=== PATIENT | female | born 1950 | race Caucasian/White ===

== ENCOUNTER 2023-04-07 20:47 | Inpatient (IN) | payer MEDICARE ==
[2023-04-07] MEDS ORDERED: SODIUM CHLORIDE 0.9% 1,000 ML IV STA (21:27)
[2023-04-07] MEDS ORDERED: IBUPROFEN IV 800 MG in SODIUM CHLORIDE 0.9% 250 ML IV ONE (21:27)
[2023-04-07] MEDS ORDERED: SODIUM CHLORIDE 0.9% 500 ML 500 ML IV STA (21:27)
[2023-04-07] MEDS ORDERED: ACETAMINOPHEN IV (For NPO) 1,000 MG in EMPTY BAG 1 BAG IVPB STA (21:27)
[2023-04-07 22:31] LABS: ALT 37 U/L (4-34); AST 37 U/L (14-36); African American GFR (CKD) >90 (>60 ml/min/1.73 sqM); Albumin 2.6 g/dL (3.5-5.0); Alkaline Phosphatase 500 U/L (38-126); Anion Gap 7 mmol/L; Blood Urea Nitrogen 14 mg/dL (7-17); Calcium 7.7 mg/dL (8.4-10.2); Carbon Dioxide 23 mmol/L (22-30); Chloride 100 mmol/L (98-107); Glucose 155 mg/dL (74-99); Magnesium 1.7 mg/dL (1.6-2.3); Non-African American GFR(CKD) >90 (>60 ml/min/1.73 sqM); Phosphorus 2.4 mg/dL (2.5-4.5); Potassium 3.5 mmol/L (3.5-5.1); Sodium 130 mmol/L (137-145); Total Bilirubin 0.7 mg/dL (0.2-1.3); Total Protein 5.1 g/dL (6.3-8.2)
[2023-04-07 22:49] LABS: C Reactive Protein 16.7 mg/dL (<1.0)
[2023-04-07 22:54] LABS: Anisocytosis Slight; Basophils % (A) 0 %; Eosinophils % (A) 1 %; HCT 21.1 % (34.0-46.0); Lymphocytes # (A) 0.2 k/uL (1.0-4.8); Lymphocytes % (A) 6 %; MCH 28.9 pg (25.0-35.0); MCHC 31.5 g/dL (31.0-37.0); MCV 91.7 fL (80.0-100.0); Monocytes # (A) 0.1 k/uL (0-1.0); Monocytes % (A) 2 %; Neutrophils # (A) 2.7 k/uL (1.3-7.7); Neutrophils % (A) 91 %; RDW 18.3 % (11.5-15.5); WBC 2.9 k/uL (3.8-10.6)
[2023-04-07 23:03] LABS: HGB 6.7 gm/dL (11.4-16.0); Platelet Count 82 k/uL (150-450)
--- NOTE | 2023-04-07 23:05 | ED ---
Fever HPI - General Chief Complaint: Fever Stated Complaint: FEVER Source: patient, RN notes reviewed, old records reviewed Mode of arrival: ambulatory Limitations: no limitations - History of Present Illness Initial Comments: This is a 73-year-old female to the emergency department for evaluation today. Patient presents today for evaluation regards to fever, patient has history of pancreatic cancer currently with pancreatic cancer going to chemotherapy. Symptoms lab values have been worsening. Patient also has noticed that she recently developed a fever. Patient has no symptoms along with a fever low just has not been feeling well lightheaded dizzy weak with occasional headache. Patient has no known travel history or sick contacts. No nausea vomiting or diarrhea. No abdominal pain cough or congestion. MD Complaint: fever, malaise, weakness -: days(s) Temperature Source: subjective Context: multiple patients with similar symptoms Associated Symptoms: chills, rigors, myalgias, nausea Treatments Prior to Arrival: none - Related Data Previous Rx's Medication Instructions Recorded cefUROXime axetiL [Cefuroxime] 500 mg PO BID 7 Days #14 tab 04/12/23 Allergies Allergy/AdvReac Type Severity Reaction Status Date / Time No Known Allergies Allergy Verified 04/08/23 07:32 Review of Systems ROS Statement: Those systems with pertinent positive or pertinent negative responses have been documented in the HPI. ROS Other: All systems not noted in ROS Statement are negative. Past Medical History Past Medical History: Cancer History of Any Multi-Drug Resistant Organisms: None Reported Past Surgical History: No Surgical Hx Reported Past Anesthesia/Blood Transfusion Reactions: No Reported Reaction Past Psychological History: No Psychological Hx Reported Smoking Status: Former smoker Past Alcohol Use History: None Reported Past Drug Use History: None Reported General Exam Limitations: no limitations General appearance: alert, in no apparent distress, anxious Head exam: Present: atraumatic, normocephalic, normal inspection Eye exam: Present: normal appearance, PERRL, EOMI. Absent: scleral icterus, conjunctival injection, periorbital swelling ENT exam: Present: normal exam, mucous membranes dry Neck exam: Present: normal inspection. Absent: tenderness, meningismus, lymph adenopathy Respiratory exam: Present: wheezes, rhonchi, decreased breath sounds, prolonged expiratory. Absent: respiratory distress, rales, stridor Cardiovascular Exam: Present: normal rhythm, tachycardia, normal heart sounds. Absent: systolic murmur, diastolic murmur, rubs, gallop, clicks GI/Abdominal exam: Present: soft, normal bowel sounds. Absent: distended, tenderness, guarding, rebound, rigid Extremities exam: Present: normal inspection, full ROM, normal capillary refill. Absent: tenderness, pedal edema, joint swelling, calf tenderness Back exam: Present: normal inspection Neurological exam: Present: alert, oriented X3, CN II-XII intact Psychiatric exam: Present: normal affect, normal mood Skin exam: Present: warm, dry, intact, normal color. Absent: rash Course Vital Signs 04/07/23 04/07/23 04/07/23 20:50 21:13 22:57 Temperature 100 F H 102.8 F H 101.3 F H Pulse Rate 113 H 87 Respiratory 20 16 Rate Blood Pressure 99/55 100/56 O2 Sat by Pulse 96 95 Oximetry 04/07/23 04/08/23 04/08/23 23:29 00:03 01:30 Temperature 99.9 F H 99.9 F H Pulse Rate 85 78 78 Respiratory 18 20 18 Rate Blood Pressure 100/56 91/48 83/81 O2 Sat by Pulse 97 97 98 Oximetry 04/08/23 04/08/23 04/08/23 02:00 02:21 02:41 Temperature 98.5 F 98.5 F Pulse Rate 82 84 73 Respiratory 20 18 18 Rate Blood Pressure 81/52 92/51 84/51 O2 Sat by Pulse 99 96 98 Oximetry 04/08/23 04/08/23 04/08/23 03:01 03:21 03:41 Temperature 98.7 F 98.2 F 98.0 F Pulse Rate 80 78 79 Respiratory 18 17 18 Rate Blood Pressure 94/58 92/50 95/51 O2 Sat by Pulse 97 98 98 Oximetry 04/08/23 04/08/23 04:00 04:30 Temperature 98.0 F 98 F Pulse Rate 80 78 Respiratory 18 18 Rate Blood Pressure 111/58 105/60 O2 Sat by Pulse 97 98 Oximetry - Reevaluation(s) Reevaluation #1: 04/07/23 23:24 Medical record is reviewed Reevaluation #2: 04/07/23 23:24 Patient improvement with fever control Reevaluation #3: 04/07/23 23:47 Patient informed results questions answered Reevaluation #4: 04/07/23 23:13 Was pt. sent in by a medical professional or institution ([facility], [employer], urgent care, hospital, or prison...) When possible be specific @ -no Did you speak to anyone other than the patient for history (EMS, parent, family, police, friend...)? What history was obtained from this source @ -no Did you review nursing and triage notes (agree or disagree)? Why? @ -agree Are old charts reviewed (outside hosp., previous admission, EMS record, old EKG, old radiological studies, urgent care reports/EKG's, prison records)? Report findings @ -yes Differential Diagnosis (chest pain, altered mental status, abdominal pain women, abdominal pain men, vaginal bleeding, weakness, fever, dyspnea, syncope, headache, dizziness, GI bleed, back pain, seizure, CVA, palpatations, mental health, musculoskeletal)? @ -prior EKG interpreted by me (3pts min.). @ -yes X-rays interpreted by me (1pt min.). @ -no CT interpreted by me (1pt min.). @ -no U/S interpreted by me (1pt. min.). @ -no What testing was considered but not performed or refused? (CT, X-rays, U/S, labs)? Why? @ -none What meds were considered but not given or refused? Why? @ -none Did you discuss the management of the patient with other professionals (professionals i.e. [facility], [employer], lab, RT, psych nurse, social service agency director, sociology instructor, teacher, police officer booking, ed case manager)? Give summary @ -no Was smoking cessation discussed for >3mins.? @ -no Was critical care preformed (if so, how long)? @ -no Were there social determinants of health that impacted care today? How? (Homelessness, low income, unemployed, alcoholism, drug addiction, transportation, low edu. Level, literacy, decrease access to med. care, group home, rehab)? @ -none Was there de-escalation of care discussed even if they declined (Discuss DNR or withdrawal of care, Hospice)? DNR status @ -no What co-morbidities impacted this encounter? (DM, HTN, Smoking, COPD, CAD, Cancer, CVA, ARF, Chemo, Hep., AIDS, mental health diagnosis, sleep apnea, morbid obesity)? @ -none Was patient admitted / discharged? Hospital course, mention meds given and route, prescriptions, significant lab abnormalities, going to OR and other pertinent info. @ - 73-year-old with significant shortness of breath weakness oncological treatment chemotherapy for pancreatic cancer. Patient will be transfused for anemia place on IV antibiotics for significant pneumonia having blood cultures. Patient does have findings of abnormal left great toe on x-ray could be possible concern for infection as there was some drainage from that toe today Admitted Undiagnosed new problem with uncertain prognosis? @ -no Drug Therapy requiring intensive monitoring for toxicity (Heparin, Nitro, Insulin, Cardizem)? @ -no Were any procedures done? @ -no Diagnosis/symptom? @ -Pneumonia, weakness, underlying cancer Acute, or Chronic, or Acute on Chronic? @ -Acute Uncomplicated (without systemic symptoms) or Complicated (systemic symptoms)? @ -Complicated Side effects of treatment? @ -no Exacerbation, Progression, or Severe Exacerbation? @ -exacerbation Poses a threat to life or bodily function? How? (Chest pain, USA, AR, pneumonia, PE, COPD, DKA, ARF, appy, cholecystitis, CVA, Diverticulitis, Homicidal, Suicidal, threat to staff... and all critical care pts) @ -yes with pneumonia subsisting underlying cancer Reevaluation #5: 04/07/23 23:47 Differential Fever: Pneumonia, viral URI, endocarditis, myocarditis, pericarditis, otitis, sinusitis, peritonsillar Abscess, retropharyngeal Abscess, epiglottitis, peritonitis, appendicitis, Grisel cystitis, diverticulitis, hepatitis, colitis, UTI, PID, TOA, pyelonephritis, prostatitis, epididymitis, meningitis, encephalitis, pulmonary embolism, CVA, thyroid storm, pancreatitis, adrenal crisis, cavernous sinus thrombosis, this is not meant to be an all-inclusive list. Differential Weakness: Hypoglycemia, shock, sepsis, hyponatremia, anemia, infection, AR, ETOH, adverse medicine reaction, overdose, stroke, this is not meant to be an all-inclusive list. - Consultations Consultation #1: Spoke with DOUG to agrees to admit this patient Medical Decision Making - Medical Decision Making 73-year-old with significant shortness of breath weakness oncological treatment chemotherapy for pancreatic cancer. Patient will be transfused for anemia place on IV antibiotics for significant pneumonia having blood cultures. Patient does have findings of abnormal left great toe on x-ray could be possible concern for infection as there was some drainage from that toe today - Lab Data Result diagrams: 04/11/23 05:59 04/11/23 05:59 Lab Results 04/07/23 04/07/23 04/07/23 Range/Units 21:31 21:31 21:31 WBC 2.9 L (3.8-10.6) k/uL RBC 2.30 L (3.80-5.40) m/uL Hgb 6.7 L* D (11.4-16.0) gm/dL Hct 21.1 L (34.0-46.0) % MCV 91.7 (80.0-100.0) fL MCH 28.9 (25.0-35.0) pg MCHC 31.5 (31.0-37.0) g/dL RDW 18.3 H (11.5-15.5) % Plt Count 82 L D (150-450) k/uL MPV 9.0 Neutrophils % 91 % Lymphocytes % 6 % Monocytes % 2 % Eosinophils % 1 % Basophils % 0 % Neutrophils # 2.7 (1.3-7.7) k/uL Lymphocytes # 0.2 L (1.0-4.8) k/uL Monocytes # 0.1 (0-1.0) k/uL Eosinophils # 0.0 (0-0.7) k/uL Basophils # 0.0 (0-0.2) k/uL Anisocytosis Slight Sodium 130 L (137-145) mmol/L Potassium 3.5 (3.5-5.1) mmol/L Chloride 100 (98-107) mmol/L Carbon Dioxide 23 (22-30) mmol/L Anion Gap 7 mmol/L BUN 14 (7-17) mg/dL Creatinine 0.58 (0.52-1.04) mg/dL Est GFR (CKD-EPI)AfAm >90 (>60 ml/min/1.73 sqM) Est GFR (CKD-EPI)NonAf >90 (>60 ml/min/1.73 sqM) Glucose 155 H (74-99) mg/dL Lactic Ac Sepsis Rflx Plasma Lactic Acid Danilo 2.7 H* (0.7-2.0) mmol/L Calcium 7.7 L (8.4-10.2) mg/dL Phosphorus 2.4 L (2.5-4.5) mg/dL Magnesium 1.7 (1.6-2.3) mg/dL Total Bilirubin 0.7 (0.2-1.3) mg/dL AST 37 H (14-36) U/L ALT 37 H (4-34) U/L Alkaline Phosphatase 500 H (38-126) U/L C-Reactive Protein 16.7 H (<1.0) mg/dL Total Protein 5.1 L (6.3-8.2) g/dL Albumin 2.6 L (3.5-5.0) g/dL Lipase (23-300) U/L Influenza Type A (PCR) (Not Detectd) Influenza Type B (PCR) (Not Detectd) RSV (PCR) (Not Detectd) SARS-CoV-2 (PCR) (Not Detectd) 04/07/23 04/07/23 04/07/23 Range/Units 21:31 21:31 22:35 WBC (3.8-10.6) k/uL RBC (3.80-5.40) m/uL Hgb (11.4-16.0) gm/dL Hct (34.0-46.0) % MCV (80.0-100.0) fL MCH (25.0-35.0) pg MCHC (31.0-37.0) g/dL RDW (11.5-15.5) % Plt Count (150-450) k/uL MPV Neutrophils % % Lymphocytes % % Monocytes % % Eosinophils % % Basophils % % Neutrophils # (1.3-7.7) k/uL Lymphocytes # (1.0-4.8) k/uL Monocytes # (0-1.0) k/uL Eosinophils # (0-0.7) k/uL Basophils # (0-0.2) k/uL Anisocytosis Sodium (137-145) mmol/L Potassium (3.5-5.1) mmol/L Chloride (98-107) mmol/L Carbon Dioxide (22-30) mmol/L Anion Gap mmol/L BUN (7-17) mg/dL Creatinine (0.52-1.04) mg/dL Est GFR (CKD-EPI)AfAm (>60 ml/min/1.73 sqM) Est GFR (CKD-EPI)NonAf (>60 ml/min/1.73 sqM) Glucose (74-99) mg/dL Lactic Ac Sepsis Rflx Y Plasma Lactic Acid Danilo (0.7-2.0) mmol/L Calcium (8.4-10.2) mg/dL Phosphorus (2.5-4.5) mg/dL Magnesium (1.6-2.3) mg/dL Total Bilirubin (0.2-1.3) mg/dL AST (14-36) U/L ALT (4-34) U/L Alkaline Phosphatase (38-126) U/L C-Reactive Protein (<1.0) mg/dL Total Protein (6.3-8.2) g/dL Albumin (3.5-5.0) g/dL Lipase 171 (23-300) U/L Influenza Type A (PCR) Not Detected (Not Detectd) Influenza Type B (PCR) Not Detected (Not Detectd) RSV (PCR) Not Detected (Not Detectd) SARS-CoV-2 (PCR) Not Detected (Not Detectd) - Radiology Data Radiology results: report reviewed (Chest x-rays positive for pneumonia, x-ray left foot is positive for findings left great toe), image reviewed Critical Care Time Critical Care Time: Yes Total Critical Care Time: 31 Disposition Clinical Impression: Weakness, Community acquired pneumonia, Fever, Anemia, Pancreatic cancer, Bacteremia, Pancytopenia due to chemotherapy Disposition: ADMITTED IP TO THIS HOSP Condition: Fair Is patient prescribed a controlled substance at d/c from ED?: No Time of Disposition: 21:40
[2023-04-07] MEDS ORDERED: POTASSIUM BICARBONATE/CIT AC 20 MEQ TABLET.EFF PO ONE (23:06)
--- NOTE | 2023-04-07 23:10 | XR ---
EXAMINATION TYPE: XR chest 2V, XR foot complete 3 views LT DATE OF EXAM: 04/07/2023 COMPARISON: None HISTORY: 73-year-old female with fever and great toe pain FINDINGS: Chest: The cardiomediastinal silhouette, aorta, and pulmonary vasculature are within normal limits. There is patchy posterior basilar opacity on the lateral view. Prominent skinfold projects along the peripher y of the left mid to lower lung. Chronic healed fracture deformity mid right clavicular shaft. Left foot: Incidental Kraus's toe. There is slight flattening of the subarticular bone plate of the second meta tarsal head. Os intermetatarsal the lateral view. Small posterior and plantar heel spurs. No acute fr acture, subluxation, dislocation seen. IMPRESSION: 1. Chest: Patchy posterior basilar opacity on the lateral view. This could represent atelectasis or d eveloping infiltrate. 2. Left foot: Kraus's toe. Correlate for Freiberg's infraction second metatarsal head. Small posteri or and plantar heel spurs.
[2023-04-07] MEDS: MAGNESIUM SULFATE-D5W PMX 1 GM in DEXTROSE/WATER 1 100ML.BAG IVPB SCH (23:25)
[2023-04-07] MEDS ORDERED: PNEUMONIA PROTOCOL UTILIZED 1 EACH MISC PO PRN (23:40)
[2023-04-07] MEDS ORDERED: NALOXONE 0.4 MG/ML 1 ML VIAL IV PRN (23:40)
[2023-04-07] MEDS ORDERED: AZITHROMYCIN 500 MG in SODIUM CHLORIDE 0.9% 250 ML IVPB STA (23:40)
[2023-04-07] MEDS ORDERED: ONDANSETRON 4 MG/2 ML VIAL IVP PRN (23:40)
[2023-04-07] MEDS ORDERED: MORPHINE SULFATE 4 MG/ML SYRINGE IV PRN (23:40)
[2023-04-08] MEDS: SODIUM CHLORIDE 0.9% 1,000 ML IV SCH ×2 (00:18→17:19)
[2023-04-08] MEDS: MAGNESIUM SULFATE-D5W PMX 1 GM in DEXTROSE/WATER 1 100ML.BAG IVPB SCH (00:31)
[2023-04-08 05:50] LABS: Glucose,Whole Blood 119 mg/dL (70-110)
[2023-04-08 07:31] LABS: Anisocytosis Slight; Basophils % (A) 0 %; Eosinophils % (A) 1 %; HCT 24.7 % (34.0-46.0); HGB 7.9 gm/dL (11.4-16.0); Hypochromasia Slight; Lymphocytes # (A) 0.3 k/uL (1.0-4.8); Lymphocytes % (A) 15 %; MCH 29.3 pg (25.0-35.0); MCHC 32.1 g/dL (31.0-37.0); MCV 91.4 fL (80.0-100.0); Mean Platelet Volume 8.9; Monocytes % (A) 1 %; Neutrophils # (A) 1.6 k/uL (1.3-7.7); Neutrophils % (A) 82 %; RDW 18.6 % (11.5-15.5)
[2023-04-08 07:44] LABS: ALT 36 U/L (4-34); AST 28 U/L (14-36); African American GFR (CKD) >90 (>60 ml/min/1.73 sqM); Albumin 2.4 g/dL (3.5-5.0); Alkaline Phosphatase 411 U/L (38-126); Anion Gap 2 mmol/L; Blood Urea Nitrogen 8 mg/dL (7-17); Calcium 7.3 mg/dL (8.4-10.2); Carbon Dioxide 26 mmol/L (22-30); Chloride 104 mmol/L (98-107); Glucose 130 mg/dL (74-99); Lipase 62 U/L (23-300); Magnesium 2.4 mg/dL (1.6-2.3); Non-African American GFR(CKD) >90 (>60 ml/min/1.73 sqM); Phosphorus 2.8 mg/dL (2.5-4.5); Potassium 4.7 mmol/L (3.5-5.1); Sodium 132 mmol/L (137-145); Total Bilirubin 0.9 mg/dL (0.2-1.3); Total Protein 4.7 g/dL (6.3-8.2)
[2023-04-08 08:30] LABS: Platelet Count 83 k/uL (150-450)
[2023-04-08 12:57] LABS: Appearance,Urine Clear (Clear); Bilirubin,Urine Negative (Negative); Blood,Urine Negative (Negative); Color,Urine Light Yellow; Glucose,Urine (UA) Negative (Negative); Ketones,Urine Negative (Negative); Leukocyte Esterase,Urine Negative (Negative); Nitrite,Urine Negative (Negative); Protein,Urine Negative (Negative); Urobilinogen,Urine <2.0 mg/dL (<2.0)
[2023-04-08] MEDS: AZITHROMYCIN 500 MG TAB PO SCH (13:04)
--- NOTE | 2023-04-08 13:07 | P.CONS ---
History of Present Illness - Reason for Consult Consult date: 04/08/23 pancreatic adenocarcinoma Requesting physician: Anthony Evans - Chief Complaint fever, rigors - History of Present Illness Pt of Dr. Baker, with PMH of pancreatic adenocarcinoma diagnosed earlier this year, due to complete cycle 6 day 15 of neoadjuvant chemo this Saturday. She has done well with regimen overall up to this point. She presented early September 2022 to [facility] with jaundice, progressive over a week, associated with dark urine, lightening of the stools, mild early satiety, vague abdominal discomfort. 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. Bilirubin 14.7, alk phos 724, liver enzymes were elevated, CTAP showed a 4 cm mass in the pancreatic head/uncinate process, mildly enlarged right cardiophrenic lymph node 1.1 cm. EUS with ERCP attempted 09/18/22, unsuccessful. Repeat 09/24/22 successful placement of an uncovered metal stent, biopsies of pancreas and bile duct positive for adenocarcinoma consistent with pancreatic primary. Imaging discussed at [facility]. Tumor felt to have focal abutment to the posterior SMV, multiple large liver lesions. 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 MRI of the liver 11/03/22 confirmed the same. Recommendation for systemic neoadjuvant chemotherapy, reevaluation and possible excision. Patient denies any family history of pancreatic/ovarian/breast or prostate cancer in first-degree relatives. No personal history of cancer. She started Gemzar and Abraxane 11/02/22 days 1 and 151 cycle, increased to day 1, 8, 15 with cycle 2, G-CSF added. She was last seen by Dr. Baker about 2 weeks ago, plan was to complete 6 cycles. Pt already has follow-up with Surgical Oncology for repeat imaging in May, tentatively scheduled for surgery 05/31/23. A recent CT of the chest was reviewed at her visit with Dr. Baker, there is a referral to Endocrinology for right-sided thyroid nodule. Pt came to ER as she was experiencing rigors at home, she reports they did get better for a while when she took tylenol but, this stopped working. For about 2 weeks her lt great toe has been red, nail is lifting, son reports small amount of pus draining from it. 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 Pt denied checking for fever at home, no oral irritation, sore throat, chest pain, new or worsening cough, N,V, diarrhea On admit XRAY of the foot/toe did not show any concerning findings for osteomyelitis or overwhelming infection, CXR LLL posterior opacity seen. Empiric abx started. Hgb 6.7, s/p 1 unit blood, Hgb 7.9 now. WBC/ANC low but adequate, plt 80,000 range. Lactic acid 2.7 on admit. Tmax overnight 102.8F. Patient was sleeping when we entered the room for examination. She had no acute complaints. Review of Systems 10 point ROS is neg except as stated in HPI Past Medical History Past Medical History: Cancer History of Any Multi-Drug Resistant Organisms: None Reported Past Surgical History: No Surgical Hx Reported Past Anesthesia/Blood Transfusion Reactions: No Reported Reaction Past Psychological History: No Psychological Hx Reported Smoking Status: Former smoker Past Alcohol Use History: None Reported Past Drug Use History: None Reported Medications and Allergies Home Medications Medication Instructions Recorded Confirmed Type No Known Home Medications 04/08/23 04/08/23 History Allergies Allergy/AdvReac Type Severity Reaction Status Date / Time No Known Allergies Allergy Verified 04/08/23 07:32 Physical Exam Vitals: Vital Signs Temp Pulse Pulse Resp BP BP Pulse Ox 04/08/23 08:00 99.6 F 76 18 99/60 95 04/08/23 05:45 99.0 F 82 18 110/68 99 04/08/23 04:30 98 F 78 18 105/60 98 04/08/23 04:00 98.0 F 80 18 111/58 97 04/08/23 03:41 98.0 F 79 18 95/51 98 04/08/23 03:21 98.2 F 78 17 92/50 98 04/08/23 03:01 98.7 F 80 18 94/58 97 04/08/23 02:41 98.5 F 73 18 84/51 98 04/08/23 02:21 98.5 F 84 18 92/51 96 04/08/23 02:00 82 20 81/52 99 04/08/23 01:30 78 18 83/81 98 04/08/23 00:03 99.9 F H 78 20 91/48 97 04/07/23 23:29 99.9 F H 85 18 100/56 97 04/07/23 22:57 101.3 F H 87 16 100/56 95 04/07/23 21:13 102.8 F H 04/07/23 20:50 100 F H 113 H 20 99/55 96 Intake and Output 04/07/23 04/08/23 04/08/23 22:59 06:59 14:59 Intake Total 310 Balance 310 Intake: Blood Product 310 Rc As-1 Unit 310 [id number] Other: # Voids 1 Weight 69.4 kg 69.4 kg - Constitutional General appearance: average body habitus, cooperative, no acute distress - EENT Eyes: anicteric sclerae, EOMI ENT: hearing grossly normal, normal oropharynx - Neck Neck: no lymphadenopathy - Respiratory Respiratory: right: CTA, left: wheezing (LLL exp ) - Cardiovascular Rhythm: regular Heart sounds: normal: S1, S2 Abnormal Heart Sounds: no systolic murmur, no diastolic murmur, no rub, no S3 Gallop, no S4 Gallop, no click, no other foot Peripheral Edema: bilateral: Trace - Gastrointestinal General gastrointestinal: no absent bowel sounds, no decreased bowel sounds, no distended, no hepatomegaly, no hyperactive bowel sounds, normal bowel sounds, no organomegaly, no rigid, no scaphoid, soft, no splenomegaly, no tenderness, no umbilical hernia, no ventral hernia - Integumentary lt great toe nail lifting, mild redness, not tender to touch, no drainage Integumentary: normal - Neurologic Neurologic: CNII-XII intact - Musculoskeletal Musculoskeletal: strength equal bilaterally - Psychiatric Psychiatric: A&O x's 3, appropriate affect, intact judgment & insight Results CBC & Chem 7: 04/08/23 06:38 04/08/23 06:38 Labs: Abnormal Lab Results - Last 24 Hours (Table) 04/07/23 04/07/23 04/07/23 Range/Units 21:31 21:31 21:31 WBC 2.9 L (3.8-10.6) k/uL RBC 2.30 L (3.80-5.40) m/uL Hgb 6.7 L* D (11.4-16.0) gm/dL Hct 21.1 L (34.0-46.0) % RDW 18.3 H (11.5-15.5) % Plt Count 82 L D (150-450) k/uL Lymphocytes # 0.2 L (1.0-4.8) k/uL Sodium 130 L (137-145) mmol/L Creatinine (0.52-1.04) mg/dL Glucose 155 H (74-99) mg/dL POC Glucose (mg/dL) (70-110) mg/dL Plasma Lactic Acid Danilo 2.7 H* (0.7-2.0) mmol/L Calcium 7.7 L (8.4-10.2) mg/dL Phosphorus 2.4 L (2.5-4.5) mg/dL Magnesium (1.6-2.3) mg/dL AST 37 H (14-36) U/L ALT 37 H (4-34) U/L Alkaline Phosphatase 500 H (38-126) U/L C-Reactive Protein 16.7 H (<1.0) mg/dL Total Protein 5.1 L (6.3-8.2) g/dL Albumin 2.6 L (3.5-5.0) g/dL Crossmatch 04/07/23 04/08/23 04/08/23 Range/Units 23:58 05:46 06:38 WBC 2.0 L (3.8-10.6) k/uL RBC 2.70 L (3.80-5.40) m/uL Hgb 7.9 L (11.4-16.0) gm/dL Hct 24.7 L (34.0-46.0) % RDW 18.6 H (11.5-15.5) % Plt Count 83 L (150-450) k/uL Lymphocytes # 0.3 L (1.0-4.8) k/uL Sodium (137-145) mmol/L Creatinine (0.52-1.04) mg/dL Glucose (74-99) mg/dL POC Glucose (mg/dL) 119 H (70-110) mg/dL Plasma Lactic Acid Danilo (0.7-2.0) mmol/L Calcium (8.4-10.2) mg/dL Phosphorus (2.5-4.5) mg/dL Magnesium (1.6-2.3) mg/dL AST (14-36) U/L ALT (4-34) U/L Alkaline Phosphatase (38-126) U/L C-Reactive Protein (<1.0) mg/dL Total Protein (6.3-8.2) g/dL Albumin (3.5-5.0) g/dL Crossmatch See Detail 04/08/23 Range/Units 06:38 WBC (3.8-10.6) k/uL RBC (3.80-5.40) m/uL Hgb (11.4-16.0) gm/dL Hct (34.0-46.0) % RDW (11.5-15.5) % Plt Count (150-450) k/uL Lymphocytes # (1.0-4.8) k/uL Sodium 132 L (137-145) mmol/L Creatinine 0.43 L (0.52-1.04) mg/dL Glucose 130 H (74-99) mg/dL POC Glucose (mg/dL) (70-110) mg/dL Plasma Lactic Acid Danilo (0.7-2.0) mmol/L Calcium 7.3 L (8.4-10.2) mg/dL Phosphorus (2.5-4.5) mg/dL Magnesium 2.4 H (1.6-2.3) mg/dL AST (14-36) U/L ALT 36 H (4-34) U/L Alkaline Phosphatase 411 H (38-126) U/L C-Reactive Protein (<1.0) mg/dL Total Protein 4.7 L (6.3-8.2) g/dL Albumin 2.4 L (3.5-5.0) g/dL Crossmatch Comments: lt foot XR report reviewed Chest x-ray: report reviewed Assessment and Plan (1) Fever Current Visit: Yes Status: Acute Priority: High Code(s): R50.9 - FEVER, UNSPECIFIED SNOMED Code(s): 983801393 (2) Pancytopenia due to chemotherapy Current Visit: Yes Status: Acute Priority: High Code(s): D61.810 - ANTINEOPLASTIC CHEMOTHERAPY INDUCED PANCYTOPENIA SNOMED Code(s): 2022067 (3) Pancreatic cancer Current Visit: Yes Status: Acute Priority: High Code(s): C25.9 - MALIGNANT NEOPLASM OF PANCREAS, UNSPECIFIED SNOMED Code(s): 605335163 Plan: Fever -Pancultures performed. Suspicious CXR, urine and blood cultures pending -Empiric abx started -Lt great toe monitoring, possible infection source Pancytopenia 2/2 chemo -exacerbated by acute infection -pt is s/p 1 unit PRBCs with appropriate increase in Hgb, Hgb 7.9 today. Transfuse for Hgb <7 or if symptomatic -WBC 2, ANC 1.6, low but adequate. No GCSF at this time -Plt 83,000. No acute intervention Pancreatic adenocarcinoma -Diagnosis and circumstances of treatment as described in HPI -Due to complete 6 cycles of neoadjuvant treatment this Fri. This will be delayed until pt completes abx course -Patient and he has follow-up appointments with Dr. Baker, surgical oncology and a tentative surgery date of 05/31/23. Continue with this course at this time. attests: I have seen and examined pt, performed H&P, developed impression and plan of care. Discussed with dictator. Agree with documentation, dictated as a scribe.
--- NOTE | 2023-04-08 15:00 | P.HPIM ---
History of Present Illness H&P Date: 04/08/23 History of present illness; patient 73-year-old lady with past medical history s ignificant for enteric cancer presented to the ER because of feeling of lightheaded and fevers. Patient is currently undergoing chemotherapy for her cancer. Patient states the last few days she has been noticing that she developing low-grade fevers. Patient also complained of lightheadedness and dizziness. Complaining of headaches as well. No complain of cough. No shortness of breath. Denies any chest pain or palpitations. No complain of nausea, vomiting abdominal pain. Because of these complaints patient presented to ER. Patient also complaining of left toe drainage which is new Initial lab work done in the ER showed WBC 2.9, hemoglobin 6.7, platelet count 82, sodium 1:30, potassium 3.5, BUN 14, creatinine 0.58, lactic acid 2.7, calcium 7.7, AST 37, ALT 37 Influenza A and B- RSV negative, COVID-19 negative Chest x-ray done in the ER showed patchy posterior basal opacity on the lateral view this could represent atelectasis or developing infiltrate Patient admitted to medicine service REVIEW OF SYSTEMS: CONSTITUTIONAL: As mentioned above HEENT: No recent visual problems or hearing problems. Denied any sore throat. CARDIOVASCULAR: No chest pain, orthopnea, PND, no palpitations, no syncope. PULMONARY: As mentioned above GASTROINTESTINAL: No diarrhea, no nausea, no vomiting, no abdominal pain. NEUROLOGICAL: No headaches, no weakness, no numbness. HEMATOLOGICAL: Denies any bleeding or petechiae. GENITOURINARY: Denies any burning micturition, frequency, or urgency. MUSCULOSKELETAL/RHEUMATOLOGICAL: Denies any joint pain, swelling, or any muscle pain. ENDOCRINE: Denies any polyuria or polydipsia. The rest of the 14-point review of systems is negative. PHYSICAL EXAMINATION: GENERAL: The patient is alert and oriented x3, not in any acute distress. Well developed, well nourished. HEENT: Pupils are round and equally reacting to light. EOMI. No scleral icterus. No conjunctival pallor. Normocephalic, atraumatic. No pharyngeal erythema. No thyromegaly. CARDIOVASCULAR: S1 and S2 present. No murmurs, rubs, or gallops. PULMONARY: Chest is clear to auscultation, no wheezing or crackles. ABDOMEN: Soft, nontender, nondistended, normoactive bowel sounds. No palpable organomegaly. MUSCULOSKELETAL: No joint swelling or deformity. EXTREMITIES: No cyanosis, clubbing, or pedal edema. NEUROLOGICAL: Gross neurological examination did not reveal any focal deficits. SKIN: No rashes. Assessment and plan Fever Bacterial pneumonia Anemia Thrombocytopenia Lactic acidosis Monitor vital signs Monitor CBC Monitor CMP Continue telemetry monitoring Follow-up on blood cultures Continue IV Rocephin and azithromycin Continue antiemetics Continue IV fluids ID consulted Hematology oncology consult Labs and medication were reviewed.. Continue same treatment. Continue with symptomatic treatment. Resume home medication. Monitor labs and vitals. DVT and GI prophylaxis. Further recommendations as per clinical course of the patient Dictation was produced using [employer] dictation software. please excuse any grammatical, word or spelling errors. Past Medical History Past Medical History: Cancer History of Any Multi-Drug Resistant Organisms: None Reported Past Surgical History: No Surgical Hx Reported Past Anesthesia/Blood Transfusion Reactions: No Reported Reaction Past Psychological History: No Psychological Hx Reported Smoking Status: Former smoker Past Alcohol Use History: None Reported Past Drug Use History: None Reported Medications and Allergies Home Medications Medication Instructions Recorded Confirmed Type No Known Home Medications 04/08/23 04/08/23 History Allergies Allergy/AdvReac Type Severity Reaction Status Date / Time No Known Allergies Allergy Verified 04/08/23 07:32 Physical Exam Vitals: Vital Signs Temp Pulse Pulse Resp BP BP Pulse Ox 04/08/23 08:00 99.6 F 76 18 99/60 95 04/08/23 05:45 99.0 F 82 18 110/68 99 04/08/23 04:30 98 F 78 18 105/60 98 04/08/23 04:00 98.0 F 80 18 111/58 97 04/08/23 03:41 98.0 F 79 18 95/51 98 04/08/23 03:21 98.2 F 78 17 92/50 98 04/08/23 03:01 98.7 F 80 18 94/58 97 04/08/23 02:41 98.5 F 73 18 84/51 98 04/08/23 02:21 98.5 F 84 18 92/51 96 04/08/23 02:00 82 20 81/52 99 04/08/23 01:30 78 18 83/81 98 04/08/23 00:03 99.9 F H 78 20 91/48 97 04/07/23 23:29 99.9 F H 85 18 100/56 97 04/07/23 22:57 101.3 F H 87 16 100/56 95 04/07/23 21:13 102.8 F H 04/07/23 20:50 100 F H 113 H 20 99/55 96 Intake and Output 04/07/23 04/08/23 04/08/23 22:59 06:59 14:59 Intake Total 310 Balance 310 Intake: Blood Product 310 Rc As-1 Unit 310 [id number] Other: # Voids 1 Weight 69.4 kg 69.4 kg Results CBC & Chem 7: 04/08/23 06:38 04/08/23 06:38 Labs: Abnormal Lab Results - Last 24 Hours (Table) 04/07/23 04/07/23 04/07/23 Range/Units 21:31 21:31 21:31 WBC 2.9 L (3.8-10.6) k/uL RBC 2.30 L (3.80-5.40) m/uL Hgb 6.7 L* D (11.4-16.0) gm/dL Hct 21.1 L (34.0-46.0) % RDW 18.3 H (11.5-15.5) % Plt Count 82 L D (150-450) k/uL Lymphocytes # 0.2 L (1.0-4.8) k/uL Sodium 130 L (137-145) mmol/L Creatinine (0.52-1.04) mg/dL Glucose 155 H (74-99) mg/dL POC Glucose (mg/dL) (70-110) mg/dL Plasma Lactic Acid Danilo 2.7 H* (0.7-2.0) mmol/L Calcium 7.7 L (8.4-10.2) mg/dL Phosphorus 2.4 L (2.5-4.5) mg/dL Magnesium (1.6-2.3) mg/dL AST 37 H (14-36) U/L ALT 37 H (4-34) U/L Alkaline Phosphatase 500 H (38-126) U/L C-Reactive Protein 16.7 H (<1.0) mg/dL Total Protein 5.1 L (6.3-8.2) g/dL Albumin 2.6 L (3.5-5.0) g/dL Crossmatch 04/07/23 04/08/23 04/08/23 Range/Units 23:58 05:46 06:38 WBC 2.0 L (3.8-10.6) k/uL RBC 2.70 L (3.80-5.40) m/uL Hgb 7.9 L (11.4-16.0) gm/dL Hct 24.7 L (34.0-46.0) % RDW 18.6 H (11.5-15.5) % Plt Count 83 L (150-450) k/uL Lymphocytes # 0.3 L (1.0-4.8) k/uL Sodium (137-145) mmol/L Creatinine (0.52-1.04) mg/dL Glucose (74-99) mg/dL POC Glucose (mg/dL) 119 H (70-110) mg/dL Plasma Lactic Acid Danilo (0.7-2.0) mmol/L Calcium (8.4-10.2) mg/dL Phosphorus (2.5-4.5) mg/dL Magnesium (1.6-2.3) mg/dL AST (14-36) U/L ALT (4-34) U/L Alkaline Phosphatase (38-126) U/L C-Reactive Protein (<1.0) mg/dL Total Protein (6.3-8.2) g/dL Albumin (3.5-5.0) g/dL Crossmatch See Detail 04/08/23 Range/Units 06:38 WBC (3.8-10.6) k/uL RBC (3.80-5.40) m/uL Hgb (11.4-16.0) gm/dL Hct (34.0-46.0) % RDW (11.5-15.5) % Plt Count (150-450) k/uL Lymphocytes # (1.0-4.8) k/uL Sodium 132 L (137-145) mmol/L Creatinine 0.43 L (0.52-1.04) mg/dL Glucose 130 H (74-99) mg/dL POC Glucose (mg/dL) (70-110) mg/dL Plasma Lactic Acid Danilo (0.7-2.0) mmol/L Calcium 7.3 L (8.4-10.2) mg/dL Phosphorus (2.5-4.5) mg/dL Magnesium 2.4 H (1.6-2.3) mg/dL AST (14-36) U/L ALT 36 H (4-34) U/L Alkaline Phosphatase 411 H (38-126) U/L C-Reactive Protein (<1.0) mg/dL Total Protein 4.7 L (6.3-8.2) g/dL Albumin 2.4 L (3.5-5.0) g/dL Crossmatch Thrombosis Risk Factor Assmnt - Choose All That Apply Any of the Below Risk Factors Present?: No
--- NOTE | 2023-04-08 18:05 | P.CONS ---
History of Present Illness - Reason for Consult Consult date: 04/08/23 Fever in immunocompromised Requesting physician: Mingo Casillas - Chief Complaint Fever and lightheaded x few days - History of Present Illness Patient is a 73 year old female with a past medical history significant for pancreatic adenocarcinoma currently on neoadjuvant chemo, patient presenting to the hospital for evaluation of feeling lightheaded any fever patient symptom has been going on for a few days before presentation to the hospital patient denies having any headaches or significant URI symptoms. Denies having any chest pain has been complaining of some shortness of breath did have a cough which is motivated density and is being of some whitish to his sputum no hemoptysis and no pleuritic chest pain patient denies having any nausea no vomiting no abdominal pain or any diarrhea, with July the patient has been evaluated on presentation to the hospital today she did have fever of 102.8F, the patient white count of 2.9 which is down to 2000 today patient also have a low hemoglobin of 6.7 however hemoglobin is up to 7.9 today, patient did have normal creatinine 0.58 CRP was mildly elevated urine has been negative influenza RSV and covid testing was negative, patient did have a chest x-ray with patchy posterior basilar opacity on the lateral view concerning for developing infiltrate, patient also have x-ray of the foot as the son was conc erned about some purulent drainage from her left big toe however that did not mention any abnormality to the left big toe on that x-ray Review of Systems Positive point and negatives has been mentioned in the HPI, complete review of systems was performed and all other systems are negative Past Medical History Past Medical History: Cancer History of Any Multi-Drug Resistant Organisms: None Reported Past Surgical History: No Surgical Hx Reported Past Anesthesia/Blood Transfusion Reactions: No Reported Reaction Past Psychological History: No Psychological Hx Reported Smoking Status: Former smoker Past Alcohol Use History: None Reported Past Drug Use History: None Reported Medications and Allergies Home Medications Medication Instructions Recorded Confirmed Type No Known Home Medications 04/08/23 04/08/23 History Allergies Allergy/AdvReac Type Severity Reaction Status Date / Time No Known Allergies Allergy Verified 04/08/23 07:32 Physical Exam Vitals: Vital Signs Temp Pulse Pulse Resp BP BP Pulse Ox 04/08/23 08:00 99.6 F 76 18 99/60 95 04/08/23 05:45 99.0 F 82 18 110/68 99 04/08/23 04:30 98 F 78 18 105/60 98 04/08/23 04:00 98.0 F 80 18 111/58 97 04/08/23 03:41 98.0 F 79 18 95/51 98 04/08/23 03:21 98.2 F 78 17 92/50 98 04/08/23 03:01 98.7 F 80 18 94/58 97 04/08/23 02:41 98.5 F 73 18 84/51 98 04/08/23 02:21 98.5 F 84 18 92/51 96 04/08/23 02:00 82 20 81/52 99 04/08/23 01:30 78 18 83/81 98 04/08/23 00:03 99.9 F H 78 20 91/48 97 04/07/23 23:29 99.9 F H 85 18 100/56 97 04/07/23 22:57 101.3 F H 87 16 100/56 95 04/07/23 21:13 102.8 F H 04/07/23 20:50 100 F H 113 H 20 99/55 96 Intake and Output 04/07/23 04/08/23 04/08/23 22:59 06:59 14:59 Intake Total 310 Balance 310 Intake: Blood Product 310 Rc As-1 Unit 310 [id number] Other: # Voids 1 Weight 69.4 kg 69.4 kg GENERAL DESCRIPTION: Elderly female lying in bed, no distress. No tachypnea or accessory muscle of respiration use. HEENT: Shows Pallor , no scleral icterus. Oral mucous membrane is dry. No pharyngeal erythema or thrush NECK: Trachea central, no thyromegaly. LUNGS: Unlabored breathing. Decreased breath in the bases HEART: S1, S2, regular rate and rhythm. No loud murmur ABDOMEN: Soft, no tenderness , guarding or rigidity, no organomegaly EXTREMITIES: No swelling redness drainage was noticed to the left big toe SKIN: No rash, no masses palpable. NEUROLOGICAL: The patient is awake, alert, oriented x3, mood and affect normal. Results CBC & Chem 7: 04/08/23 06:38 04/08/23 06:38 Labs: Abnormal Lab Results - Last 24 Hours (Table) 04/07/23 04/07/23 04/07/23 Range/Units 21:31 21:31 21:31 WBC 2.9 L (3.8-10.6) k/uL RBC 2.30 L (3.80-5.40) m/uL Hgb 6.7 L* D (11.4-16.0) gm/dL Hct 21.1 L (34.0-46.0) % RDW 18.3 H (11.5-15.5) % Plt Count 82 L D (150-450) k/uL Lymphocytes # 0.2 L (1.0-4.8) k/uL Sodium 130 L (137-145) mmol/L Creatinine (0.52-1.04) mg/dL Glucose 155 H (74-99) mg/dL POC Glucose (mg/dL) (70-110) mg/dL Plasma Lactic Acid Danilo 2.7 H* (0.7-2.0) mmol/L Calcium 7.7 L (8.4-10.2) mg/dL Phosphorus 2.4 L (2.5-4.5) mg/dL Magnesium (1.6-2.3) mg/dL AST 37 H (14-36) U/L ALT 37 H (4-34) U/L Alkaline Phosphatase 500 H (38-126) U/L C-Reactive Protein 16.7 H (<1.0) mg/dL Total Protein 5.1 L (6.3-8.2) g/dL Albumin 2.6 L (3.5-5.0) g/dL Crossmatch 04/07/23 04/08/23 04/08/23 Range/Units 23:58 05:46 06:38 WBC 2.0 L (3.8-10.6) k/uL RBC 2.70 L (3.80-5.40) m/uL Hgb 7.9 L (11.4-16.0) gm/dL Hct 24.7 L (34.0-46.0) % RDW 18.6 H (11.5-15.5) % Plt Count 83 L (150-450) k/uL Lymphocytes # 0.3 L (1.0-4.8) k/uL Sodium (137-145) mmol/L Creatinine (0.52-1.04) mg/dL Glucose (74-99) mg/dL POC Glucose (mg/dL) 119 H (70-110) mg/dL Plasma Lactic Acid Danilo (0.7-2.0) mmol/L Calcium (8.4-10.2) mg/dL Phosphorus (2.5-4.5) mg/dL Magnesium (1.6-2.3) mg/dL AST (14-36) U/L ALT (4-34) U/L Alkaline Phosphatase (38-126) U/L C-Reactive Protein (<1.0) mg/dL Total Protein (6.3-8.2) g/dL Albumin (3.5-5.0) g/dL Crossmatch See Detail 04/08/23 Range/Units 06:38 WBC (3.8-10.6) k/uL RBC (3.80-5.40) m/uL Hgb (11.4-16.0) gm/dL Hct (34.0-46.0) % RDW (11.5-15.5) % Plt Count (150-450) k/uL Lymphocytes # (1.0-4.8) k/uL Sodium 132 L (137-145) mmol/L Creatinine 0.43 L (0.52-1.04) mg/dL Glucose 130 H (74-99) mg/dL POC Glucose (mg/dL) (70-110) mg/dL Plasma Lactic Acid Danilo (0.7-2.0) mmol/L Calcium 7.3 L (8.4-10.2) mg/dL Phosphorus (2.5-4.5) mg/dL Magnesium 2.4 H (1.6-2.3) mg/dL AST (14-36) U/L ALT 36 H (4-34) U/L Alkaline Phosphatase 411 H (38-126) U/L C-Reactive Protein (<1.0) mg/dL Total Protein 4.7 L (6.3-8.2) g/dL Albumin 2.4 L (3.5-5.0) g/dL Crossmatch Assessment and Plan (1) Community acquired pneumonia Current Visit: Yes Status: Acute Code(s): J18.9 - PNEUMONIA, UNSPECIFIED ORG ANISM SNOMED Code(s): 758262287 (2) Fever Current Visit: Yes Status: Acute Priority: High Code(s): R50.9 - FEVER, UNSPECIFIED SNOMED Code(s): 219668903 Plan: 1patient is a hospital with sepsis in this patient who did have a fever tachycardia and leukopenia, patient also have a cough with some yellowish sputum with evidence of infiltrate on the chest is a high clinical sebaceous for the mo rning to be the likely etiology patient also complaining of some drainage from the left big toe but no evidence of any cellulitis clinically and x-ray did not show any abnormality to the left big toe 2-we will obtain a CRP and pro calcitonin and follow-up on the blood and sputum cultures 3-patient to continue with Rocephin and Zithromax Son at the bedside questions were answered We will follow on clinical condition and cultures to further adjust medication if needed Thank you for this consultation will follow this patient with you Time with Patient: Greater than 30
[2023-04-08] MEDS: ACETAMINOPHEN TAB 325 MG TAB PO PRN (20:37)
[2023-04-09] MEDS: SODIUM CHLORIDE 0.9% 1,000 ML IV SCH ×2 (05:11→18:02)
[2023-04-09] MEDS: AZITHROMYCIN 500 MG TAB PO SCH (09:01)
--- NOTE | 2023-04-09 12:58 | P.PN ---
Subjective Progress Note Date: 04/09/23 Principal diagnosis: Pancreatic adenocarcinoma, fever In follow-up today patient is much more alert, she is feeling better. She did have a temp of 100.8 overnight, no other complaints, she is tolerating oral intake, she is noting decrease in cough, she was able to expectorate some sputum yesterday. Objective - Vital Signs Vital signs: Vital Signs Temp 97.9 F 04/09/23 09:03 Pulse 76 04/09/23 09:03 Resp 17 04/09/23 09:03 BP 119/76 04/09/23 09:03 Pulse Ox 95 04/09/23 09:03 FiO2 21 04/09/23 07:52 Intake & Output 04/08/23 04/09/23 04/09/23 18:59 06:59 18:59 Other: # Voids 2 2 - Constitutional General appearance: Present: average body habitus, cooperative, no acute distress - EENT Eyes: Present: anicteric sclerae, EOMI ENT: Present: hearing grossly normal - Respiratory Respiratory: bilateral: CTA - Cardiovascular Rhythm: regular Heart sounds: normal: S1, S2 Abnormal Heart Sounds: Absent: systolic murmur, diastolic murmur, rub, S3 Gallop, S4 Gallop, click, other - Peripheral edema leg Peripheral Edema: bilateral: None - Gastrointestinal General gastrointestinal: Present: normal bowel sounds, soft - Integumentary Integumentary: Present: normal - Neurologic Neurologic: Present: CNII-XII intact - Musculoskeletal Musculoskeletal: Present: generalized weakness, strength equal bilaterally - Psychiatric Psychiatric: Present: A&O x's 3, appropriate affect, intact judgment & insight - Labs CBC & Chem 7: 04/08/23 06:38 04/08/23 06:38 Labs: Microbiology - Last 24 Hours (Table) 04/07/23 21:15 Blood Culture Gram Stain - Preliminary Blood 04/08/23 11:14 Gram Stain - Preliminary Sputum Assessment and Plan (1) Fever Current Visit: Yes Status: Acute Priority: High Code(s): R50.9 - FEVER, UNSPECIFIED SNOMED Code(s): 991026133 (2) Pancytopenia due to chemotherapy Current Visit: Yes Status: Acute Priority: High Code(s): D61.810 - ANTINEOPLASTIC CHEMOTHERAPY INDUCED PANCYTOPENIA SNOMED Code(s): 2836289 (3) Pancreatic cancer Current Visit: Yes Status: Acute Priority: High Code(s): C25.9 - MALIGNANT NEOPLASM OF PANCREAS, UNSPECIFIED SNOMED Code(s): 882315654 Plan: Fever -Pancultures performed. Suspicious CXR, urine and blood cultures preliminary gram-positive cocci cultures -Empiric abx cont -Lt great toe cultures today Pancytopenia 2/2 chemo -exacerbated by acute infection -pt is s/p 1 unit PRBCs -CBC in AM Pancreatic adenocarcinoma -Due to complete neoadjuvant chemotherapy this Saturday. -Delay treatment until pt completes abx course -Patient and he has follow-up appointments with Dr. Baker, surgical oncology and a tentative surgery date of 05/31/23. Continue with this course at this time. attests: I have seen and examined pt, performed H&P, developed impression and plan of care. Discussed with dictator. Agree with documentation, dictated as a scribe.
--- NOTE | 2023-04-09 14:35 | P.PN ---
Subjective Progress Note Date: 04/09/23 patient 73-year-old lady with past medical history significant for enteric cancer presented to the ER because of feeling of lightheaded and fevers. Patient is currently undergoing chemotherapy for her cancer. Patient states the last few days she has been noticing that she developing low-grade fevers. Patient also complained of lightheadedness and dizziness. Complaining of headac hes as well. No complain of cough. No shortness of breath. Denies any chest pain or palpitations. No complain of nausea, vomiting abdominal pain. Because of these complaints patient presented to ER. Patient also complaining of left toe drainage which is new Initial lab work done in the ER showed WBC 2.9, hemoglobin 6.7, platelet count 82, sodium 1:30, potassium 3.5, BUN 14, creatinine 0.58, lactic acid 2.7, calcium 7.7, AST 37, ALT 37 Influenza A and B- RSV negative, COVID-19 negative Chest x-ray done in the ER showed patchy posterior basal opacity on the lateral view this could represent atelectasis or developing infiltrate Patient admitted to medicine service 04/09. Patient seen and examined. No further episodes of fevers. Continues to have low appetite REVIEW OF SYSTEMS: CONSTITUTIONAL: No fever, no malaise,. CARDIOVASCULAR: No chest pain, no palpitations, no syncope. PULMONARY: No shortness of breath, no cough, GASTROINTESTINAL: No diarrhea, no nausea, no vomiting, no abdominal pain. NEUROLOGICAL: No headaches, no weakness, PHYSICAL EXAMINATION: GENERAL: The patient is alert and oriented x3, not in any acute distress. Well developed, well nourished. HEENT: Pupils are round and equally reacting to light. EOMI. No scleral icterus. No conjunctival pallor. Normocephalic, atraumatic. No pharyngeal erythema. No thyromegaly. CARDIOVASCULAR: S1 and S2 present. No murmurs, rubs, or gallops. PULMONARY: Chest is clear to auscultation, no wheezing or crackles. ABDOMEN: Soft, nontender, nondistended, normoactive bowel sounds. No palpable organomegaly. MUSCULOSKELETAL: No joint swelling or deformity. EXTREMITIES: No cyanosis, clubbing, or pedal edema. NEUROLOGICAL: Gross neurological examination did not reveal any focal deficits. SKIN: No rashes. Assessment and plan Fever Bacterial pneumonia Anemia Thrombocytopenia Lactic acidosis Monitor vital signs Monitor CBC Monitor CMP Continue telemetry monitoring Follow-up on blood cultures Continue IV Rocephin and azithromycin Continue antiemetics Continue IV fluids ID following Labs and medication were reviewed.. Continue same treatment. Continue with symptomatic treatment. Resume home medication. Monitor labs and vitals. DVT and GI prophylaxis. Further recommendations as per clinical course of the patient Dictation was produced using [employer] dictation software. please excuse any grammatical, word or spelling errors. Objective - Vital Signs Vital signs: Vital Signs Temp 98.3 F 04/09/23 02:06 Pulse 76 04/09/23 02:06 Resp 16 04/09/23 02:06 BP 139/80 04/09/23 02:06 Pulse Ox 96 04/09/23 07:52 FiO2 21 04/09/23 07:52 Intake & Output 04/08/23 04/09/23 04/09/23 18:59 06:59 18:59 Other: # Voids 2 2 - Labs CBC & Chem 7: 04/08/23 06:38 04/08/23 06:38 Labs: Microbiology - Last 24 Hours (Table) 04/08/23 11:14 Gram Stain - Preliminary Sputum
--- NOTE | 2023-04-09 16:00 | P.PN ---
Subjective Progress Note Date: 04/09/23 Principal diagnosis: Fever/pneumonia Patient is a 73 year old female with a past medical history significant for pancreatic adenocarcinoma currently on neoadjuvant chemo, patient presenting to the hospital for evaluation of feeling lightheaded any fever patient symptom has been going on for a few days before presentation to the hospital, patient also have a cough with yellow sputum chest x-ray did shows patchy basilar opacity concerning for pneumonia. On today's evaluation that is 04/09/2023, the patient denies having any fever or any chills, the patient is breathing comfortably the patient cough is decreased intensity of chest pain no nausea no vomiting no abdominal pain or diarrhea. Patient did have white count of 2.0 crit 0.43 as of 04/08/2023 no blood work was done today Objective - Vital Signs Vital signs: Vital Signs Temp 97.5 F L 04/09/23 12:35 Pulse 81 04/09/23 12:35 Resp 18 04/09/23 12:35 BP 128/71 04/09/23 12:35 Pulse Ox 98 04/09/23 12:35 FiO2 21 04/09/23 07:52 Intake & Output 04/08/23 04/09/23 04/09/23 18:59 06:59 18:59 Other: # Voids 2 2 - Exam GENERAL DESCRIPTION: An elderly female lying in bed in no distress RESPIRATORY SYSTEM: Unlabored breathing , decreased breath sounds at bases HEART: S1 S2 regular rate and rhythm , ABDOMEN: Soft , no tenderness EXTREMITIES: No edema feet - Labs CBC & Chem 7: 04/08/23 06:38 04/08/23 06:38 Labs: Microbiology - Last 24 Hours (Table) 04/07/23 21:30 Blood Culture - Preliminary Blood 04/07/23 21:15 Blood Culture Gram Stain - Preliminary Blood 04/08/23 11:14 Gram Stain - Preliminary Sputum Assessment and Plan (1) Community acquired pneumonia Current Visit: Yes Status: Acute Code(s): J18.9 - PNEUMONIA, UNSPECIFIED ORGANISM SNOMED Code(s): 717397235 (2) Fever Current Visit: Yes Status: Acute Priority: High Code(s): R50.9 - FEVER, UNSPECIFIED SNOMED Code(s): 775718984 Plan: 1patient is a hospital with sepsis in this patient who did have a fever tachycardia and leukopenia, patient also have a cough with some yellowish sputum with evidence of infiltrate on the chest is a high clinical sebaceous for the morning to be the likely etiology patient also complaining of some drainage from the left big toe but no evidence of any cellulitis clinically and x-ray did not show any abnormality to the left big toe 2-patient seemed to show some clinical improvement and will continue with Rocephin and Zithromax, 1 daily for the cultures to finalize Son at the bedside questions were answered Time with Patient: Less than 30
[2023-04-09] MEDS: ACETAMINOPHEN TAB 325 MG TAB PO PRN (21:46)
[2023-04-10] MEDS: SODIUM CHLORIDE 0.9% 1,000 ML IV SCH (06:17)
--- NOTE | 2023-04-10 11:49 | CDI ---
Documentation Clarification Form Date: 04/10/2023 10:59:04 AM From: Abida Boone RN, CCDS 6 Admit Date: 04/07/2023 11:40:00 PM Patient Name: Kathi Valenzuela Visit Number: [id number] Discharge Date: ATTENTION: The Clinical Documentation Specialists (CDI) and [facility] Coding Staff appreciate your assistance in clarifying documentation. Please respond to the clarification below the line at the bottom and electronically sign. The CDI & [facility] Coding staff will review the response and follow-up if needed. Please note: Queries are made part of the Legal Health Record. If you have any questions, please contact the author of this message via ITS. Dr. Mingo Casillas The patient has sepsis documented in the ID consult and subsequent progress notes. Based on this information and the findings below, is there an additional diagnosis that is clinically appropriate for this patient? 04/08 ID consult: patient is a hospital with sepsis in this patient who did have a fever tachycardia and leukopenia, patient also have a cough with some yellowish sputum with evidence of infiltrate on chest x-ray. Community acquired pneumonia. History/Risk Factors: pancreatic cancer on chemotherapy, Former smoker Clinical Indicators: 73-year-old present for complaints of lightheaded, fever, tachycardia and leukopenia. 04/07 WBC 2.9, Na+ 130, Lactic acid 2.7, C-Reactive Protein 16.7 04/07 Blood cultures: Streptococcus viridans group 04/09 Left first toe would culture preliminary: Gram Neg Bacilli 04/07: Vital signs: 99/55 113 20 100 96% RA, Temp 102.8, 100/56 87 16 101.3 Treatment: Rocephin 2GM IVPB 04/07-04/09 Azithromycin 500MG IVPB Once, then PO Daily 04/08-04/09 .9NS1,000 MLS Bolus X2 04/07 .9NS IV @ 75 MLS/HR 04/07 Is there an additional diagnosis that is clinically appropriate for this patient? [x ] Sepsis, present on admission [ ] Sepsis ruled out [ ] Other, please specify [ ] Unable to determine SIRS Criteria: 2 or more of the following may indicate SIRS Temperature < 96.8F (36C) or > 101.0F (38.3C) Heart Rate > 90 bpm Respiratory Rate > 20 breaths/min or PaCO2 < 32 mmHg White Blood Cell Count > 12,000 or < 4,000 cells/mm3 or > 10% bands (Template Last Reviewed: August 2022) [facility]
--- NOTE | 2023-04-10 12:00 | P.PN ---
Subjective Progress Note Date: 04/10/23 Principal diagnosis: Pancreatic adenocarcinoma, fever In follow-up today patient continues to feel well. She has no new complaints. She is reporting to us a left hand By late last week. There is no drainage or lesions on the hand, no redness or pain. She did not have a temp overnight this time. Son feels that she is doing better. Objective - Vital Signs Vital signs: Vital Signs Temp 98.4 F 04/10/23 07:18 Pulse 73 04/10/23 07:18 Resp 16 04/10/23 07:18 BP 134/71 04/10/23 07:18 Pulse Ox 99 04/10/23 07:18 FiO2 21 04/09/23 07:52 Intake & Output 04/09/23 04/10/23 04/10/23 18:59 06:59 18:59 Other: # Voids 2 - Constitutional General appearance: Present: average body habitus, cooperative, no acute distress - EENT Eyes: Present: anicteric sclerae, EOMI ENT: Present: hearing grossly normal - Respiratory Details: Respirations even and unlabored at rest - Cardiovascular Details: Skin warm and dry to the touch - Peripheral edema leg Peripheral Edema: bilateral: None - Neurologic Neurologic: Present: CNII-XII intact - Musculoskeletal Musculoskeletal: Present: generalized weakness, strength equal bilaterally - Psychiatric Psychiatric: Present: A&O x's 3, appropriate affect, intact judgment & insight - Labs CBC & Chem 7: 04/08/23 06:38 04/08/23 06:38 Labs: Microbiology - Last 24 Hours (Table) 04/09/23 10:15 Gram Stain - Preliminary Toe - Left First Wound Culture - Preliminary Gram Neg Bacilli 04/08/23 11:14 Gram Stain - Final Sputum Sputum Culture - Final 04/07/23 21:15 Blood Culture Gram Stain - Preliminary Blood Blood Culture - Preliminary Streptococcus viridans group 04/07/23 21:30 Blood Culture - Preliminary Blood Assessment and Plan (1) Fever Current Visit: Yes Status: Acute Priority: High Code(s): R50.9 - FEVER, UNSPECIFIED SNOMED Code(s): 955333309 (2) Pancytopenia due to chemotherapy Current Visit: Yes Status: Acute Priority: High Code(s): D61.810 - ANTINEOPLASTIC CHEMOTHERAPY INDUCED PANCYTOPENIA SNOMED Code(s): 9365472 (3) Pancreatic cancer Current Visit: Yes Status: Acute Priority: High Code(s): C25.9 - MALIGNANT NEOPLASM OF PANCREAS, UNSPECIFIED SNOMED Code(s): 900982711 Plan: Fever -Pancultures performed. Suspicious CXR. Blood cultures Blood cultures, strepto coccus viridans, left great toe gram-negative bacilli. -ID consulted, abx cont Pancytopenia 2/2 chemo -exacerbated by acute infection -pt is s/p 1 unit PRBCs -WBC is 2, ANC 1.6, hemoglobin 7.9, platelets 83,000-stable Pancreatic adenocarcinoma -Due to complete neoadjuvant chemotherapy this Saturday. -Delay treatment until pt completes abx course per ID -Patient and he has follow-up appointments with Dr. Baker, surgical oncology and a tentative surgery date of 05/31/23. Continue with this course at this time. attests: I have seen and examined pt, performed H&P, developed impression and plan of care. Discussed with dictator. Agree with documentation, dictated as a scribe.
--- NOTE | 2023-04-10 12:23 | P.PN ---
Subjective Progress Note Date: 04/10/23 patient 73-year-old lady with past medical history significant for enteric cancer presented to the ER because of feeling of lightheaded and fevers. Patient is currently undergoing chemotherapy for her cancer. Patient states the last few days she has been noticing that she developing low-grade fevers. Patient also complained of lightheadedness and dizziness. Complaining of headac hes as well. No complain of cough. No shortness of breath. Denies any chest pain or palpitations. No complain of nausea, vomiting abdominal pain. Because of these complaints patient presented to ER. Patient also complaining of left toe drainage which is new Initial lab work done in the ER showed WBC 2.9, hemoglobin 6.7, platelet count 82, sodium 1:30, potassium 3.5, BUN 14, creatinine 0.58, lactic acid 2.7, calcium 7.7, AST 37, ALT 37 Influenza A and B- RSV negative, COVID-19 negative Chest x-ray done in the ER showed patchy posterior basal opacity on the lateral view this could represent atelectasis or developing infiltrate Patient admitted to medicine service 04/09. Patient seen and examined. No further episodes of fevers. Continues to have low appetite 04/10. Patient seen and examined REVIEW OF SYSTEMS: CONSTITUTIONAL: No fever, no malaise,. CARDIOVASCULAR: No chest pain, no palpitations, no syncope. PULMONARY: No shortness of breath, no cough, GASTROINTESTINAL: No diarrhea, no nausea, no vomiting, no abdominal pain. NEUROLOGICAL: No headaches, no weakness, PHYSICAL EXAMINATION: GENERAL: The patient is alert and oriented x3, not in any acute distress. Well developed, well nourished. HEENT: Pupils are round and equally reacting to light. EOMI. No scleral icterus. No conjunctival pallor. Normocephalic, atraumatic. No pharyngeal erythema. No thyromegaly. CARDIOVASCULAR: S1 and S2 present. No murmurs, rubs, or gallops. PULMONARY: Chest is clear to auscultation, no wheezing or crackles. ABDOMEN: Soft, nontender, nondistended, normoactive bowel sounds. No palpable organomegaly. MUSCULOSKELETAL: No joint swelling or deformity. EXTREMITIES: No cyanosis, clubbing, or pedal edema. NEUROLOGICAL: Gross neurological examination did not reveal any focal deficits. SKIN: No rashes. Assessment and plan Fever Bacterial pneumonia Anemia Thrombocytopenia Lactic acidosis Monitor vital signs Monitor CBC Monitor CMP Continue telemetry monitoring Follow-up on blood cultures, initial blood cultures positive for Streptococcus viridans. Repeat blood cultures ordered today Continue IV Rocephin and azithromycin Continue antiemetics Continue IV fluids ID following Labs and medication were reviewed.. Continue same treatment. Continue with symptomatic treatment. Resume home medication. Monitor labs and vitals. DVT and GI prophylaxis. Further recommendations as per clinical course of the patient Dictation was produced using [email or web address] dictation software. please excuse any grammatical, word or spelling errors. Objective - Vital Signs Vital signs: Vital Signs Temp 98.4 F 04/10/23 07:18 Pulse 73 04/10/23 07:18 Resp 16 04/10/23 07:18 BP 134/71 04/10/23 07:18 Pulse Ox 99 04/10/23 07:18 FiO2 21 04/09/23 07:52 Intake & Output 04/09/23 04/10/23 04/10/23 18:59 06:59 18:59 Other: # Voids 2 - Labs CBC & Chem 7: 04/08/23 06:38 04/08/23 06:38 Labs: Microbiology - Last 24 Hours (Table) 04/09/23 10:15 Gram Stain - Preliminary Toe - Left First Wound Culture - Preliminary Gram Neg Bacilli 04/08/23 11:14 Gram Stain - Final Sputum Sputum Culture - Final 04/07/23 21:15 Blood Culture Gram Stain - Preliminary Blood Blood Culture - Preliminary Streptococcus viridans group 04/07/23 21:30 Blood Culture - Preliminary Blood
[2023-04-10 12:47] LABS: ALT 34 U/L (8-44); AST 19 U/L (13-35); Alkaline Phosphatase 443 U/L (41-126); Blood Urea Nitrogen 4.7 mg/dL (9.0-27.0); Calcium 8.2 mg/dL (8.7-10.3); Chloride 104 mmol/L (96-109); Glucose 120 mg/dL (70-110); Sodium 137 mmol/L (135-145); Total Bilirubin 0.3 mg/dL (0.3-1.2)
[2023-04-10 14:32] LABS: Basophils # (A) 0.01 X 10*3/uL (0.00-0.10); Basophils % (A) 0.5 %; Eosinophils # (A) 0.04 X 10*3/uL (0.04-0.35); HCT 29.3 % (37.2-46.3); HGB 9.1 d/dL (12.0-15.0); Lymphocytes # (A) 0.81 X 10*3/uL (0.90-5.00); Lymphocytes % (A) 40.5 %; MCH 28.3 pg (27.0-32.0); MCHC 31.1 d/dL (32.0-37.0); MCV 91.3 FL (80.0-97.0); Mean Platelet Volume 12.1 FL (9.5-12.2); Monocytes # (A) 0.17 X 10*3/uL (0.20-1.00); Monocytes % (A) 8.5 %; NRBC Per 100 WBC 0 X 10*3/uL (0.00-0.01); Neutrophils # (A) 0.91 X 10*3/uL (1.80-7.70); Neutrophils % (A) 45.5 %; Platelet Count 105 X 10*3/uL (140-440); RBC 3.21 X 10*6/uL (4.10-5.20); RBC Morphology Normal (Normal); RDW 18.3 % (11.5-14.5)
[2023-04-11] MEDS: ACETAMINOPHEN TAB 325 MG TAB PO PRN ×2 (01:37→20:36)
[2023-04-11 09:13] LABS: Basophils # (A) 0.03 X 10*3/uL (0.00-0.10); Basophils % (A) 0.9 %; Eosinophils # (A) 0.02 X 10*3/uL (0.04-0.35); Eosinophils % (A) 0.6 %; HCT 26.8 % (37.2-46.3); HGB 8.3 d/dL (12.0-15.0); Lymphocytes # (A) 0.89 X 10*3/uL (0.90-5.00); Lymphocytes % (A) 26.4 %; MCH 28.2 pg (27.0-32.0); MCV 91.2 FL (80.0-97.0); Mean Platelet Volume 12.2 FL (9.5-12.2); Monocytes # (A) 0.31 X 10*3/uL (0.20-1.00); Monocytes % (A) 9.2 %; NRBC Per 100 WBC 0 X 10*3/uL (0.00-0.01); Neutrophils % (A) 62.3 %; Platelet Count 87 X 10*3/uL (140-440); RBC 2.94 X 10*6/uL (4.10-5.20); RDW 17.8 % (11.5-14.5); WBC 3.37 X 10*3/uL (4.50-10.00)
[2023-04-11 09:30] LABS: ALT 26 U/L (8-44); AST 16 U/L (13-35); Albumin 2.7 d/dL (3.8-4.9); Albumin/Globulin Ratio 1.35 Ratio (1.60-3.17); Alkaline Phosphatase 402 U/L (41-126); Calcium 8.1 mg/dL (8.7-10.3); Carbon Dioxide 25.4 mmol/L (21.6-31.8); Chloride 103 mmol/L (96-109); Glucose 124 mg/dL (70-110); Potassium 3.9 mmol/L (3.5-5.5); Sodium 135 mmol/L (135-145); Total Bilirubin 0.4 mg/dL (0.3-1.2); Total Protein 4.7 d/dL (6.2-8.2)
--- NOTE | 2023-04-11 12:24 | P.PN ---
Subjective Progress Note Date: 04/11/23 Principal diagnosis: Pancreatic adenocarcinoma, fever In follow-up today patient feels fine, no new c/o, no fevers. She has been up to the bathroom. Objective - Vital Signs Vital signs: Vital Signs Temp 98.6 F 04/11/23 11:37 Pulse 73 04/11/23 11:37 Resp 17 04/11/23 11:37 BP 132/80 04/11/23 11:37 Pulse Ox 99 04/11/23 11:37 FiO2 21 04/09/23 07:52 Intake & Output 04/10/23 04/11/23 04/11/23 18:59 06:59 18:59 Intake Total 450 600 Balance 450 600 Intake: Intake, IV Titration 450 Amount Sodium Chloride 0.9% 1, 450 000 ml @ 75 mls/hr IV . [id number] [facility] Rx#:[id number] Oral 600 Other: Voiding Method Toilet # Voids 3 - Constitutional General appearance: Present: average body habitus, cooperative, no acute distress - EENT Eyes: Present: anicteric sclerae, EOMI ENT: Present: hearing grossly normal - Respiratory Details: resp even and unlabored - Cardiovascular Details: skin warm and dry - Peripheral edema leg Peripheral Edema: bilateral: None - Neurologic Neurologic: Present: CNII-XII intact (grossly intact) - Musculoskeletal Musculoskeletal: Present: generalized weakness - Psychiatric Psychiatric: Present: A&O x's 3, appropriate affect, intact judgment & insight - Labs CBC & Chem 7: 04/11/23 05:59 04/11/23 05:59 Labs: Abnormal Lab Results - Last 24 Hours (Table) 04/10/23 04/10/23 04/11/23 Range/Units 05:50 05:50 05:59 WBC 2.00 L 3.37 L (4.50-10.00) X 10*3/uL RBC 3.21 L 2.94 L (4.10-5.20) X 10*6/uL Hgb 9.1 L 8.3 L (12.0-15.0) d/dL Hct 29.3 L 26.8 L (37.2-46.3) % MCHC 31.1 L 31.0 L (32.0-37.0) d/dL RDW 18.3 H 17.8 H (11.5-14.5) % Plt Count 105 L 87 L (140-440) X 10*3/uL Neutrophils # 0.91 L (1.80-7.70) X 10*3/uL Lymphocytes # 0.81 L 0.89 L (0.90-5.00) X 10*3/uL Monocytes # 0.17 L (0.20-1.00) X 10*3/uL Eosinophils # 0.02 L (0.04-0.35) X 10*3/uL BUN 4.7 L (9.0-27.0) mg/dL Creatinine 0.5 L (0.6-1.5) mg/dL BUN/Creatinine Ratio 9.40 L (12.00-20.00) Ratio Glucose 120 H (70-110) mg/dL Calcium 8.2 L (8.7-10.3) mg/dL Alkaline Phosphatase 443 H (41-126) U/L Total Protein 5.0 L (6.2-8.2) d/dL Albumin 3.0 L (3.8-4.9) d/dL Albumin/Globulin Ratio 1.50 L (1.60-3.17) Ratio // Range/Units 05:59 WBC (4.50-10.00) X 10*3/uL RBC (4.10-5.20) X 10*6/uL Hgb (12.0-15.0) d/dL Hct (37.2-46.3) % MCHC (32.0-37.0) d/dL RDW (11.5-14.5) % Plt Count (140-440) X 10*3/uL Neutrophils # (1.80-7.70) X 10*3/uL Lymphocytes # (0.90-5.00) X 10*3/uL Monocytes # (0.20-1.00) X 10*3/uL Eosinophils # (0.04-0.35) X 10*3/uL BUN 5.0 L (9.0-27.0) mg/dL Creatinine 0.5 L (0.6-1.5) mg/dL BUN/Creatinine Ratio 10.00 L (12.00-20.00) Ratio Glucose 124 H (70-110) mg/dL Calcium 8.1 L (8.7-10.3) mg/dL Alkaline Phosphatase 402 H (41-126) U/L Total Protein 4.7 L (6.2-8.2) d/dL Albumin 2.7 L (3.8-4.9) d/dL Albumin/Globulin Ratio 1.35 L (1.60-3.17) Ratio Microbiology - Last 24 Hours (Table) 04/09/23 10:15 Gram Stain - Final Toe - Left First Wound Culture - Final Proteus mirabilis Enterobacter aerogenes 04/07/23 21:30 Blood Culture - Preliminary Blood 04/08/23 11:14 Gram Stain - Final Sputum Sputum Culture - Final 04/07/23 21:15 Blood Culture Gram Stain - Preliminary Blood Blood Culture - Preliminary Streptococcus viridans group Assessment and Plan (1) Fever Current Visit: Yes Status: Acute Priority: High Code(s): R50.9 - FEVER, UNSPECIFIED SNOMED Code(s): 511707727 (2) Pancytopenia due to chemotherapy Current Visit: Yes Status: Acute Priority: High Code(s): D61.810 - AN TINEOPLASTIC CHEMOTHERAPY INDUCED PANCYTOPENIA SNOMED Code(s): 8304617 (3) Pancreatic cancer Current Visit: Yes Status: Acute Priority: High Code(s): C25.9 - MALIGNANT NEOPLASM OF PANCREAS, UNSPECIFIED SNOMED Code(s): 758531497 Plan: Fever -Pancultures performed. Suspicious CXR. Blood cultures Blood cultures, streptococcus viridans, left great toe gram-negative bacilli. -ID consulted, abx cont Pancytopenia 2/2 chemo -exacerbated by acute infection -pt is s/p 1 unit PRBCs, has not needed any further transfusions needed since admit -WBC is 3.3, ANC 2.1, hemoglobin 8.3, platelets 87,000-stable Pancreatic adenocarcinoma -Due to complete neoadjuvant chemotherapy this Saturday. -Delay treatment until pt completes abx course per ID. -Discussed briefly with ID, 1 week of ceftin with repeat cultures recommended -F/U with [facility] [employer] prior to last cycle of chemo -Patient and he has follow-up appointments with Dr. Baker, Surgical Oncology with a tentative surgery date of 05/31/23. Continue with this course at this time. Pt ok from Onc standpoint for DC once cleared by IM and consulting Physicians attests: I have seen and examined pt, performed H&P, developed impression and plan of care. Discussed with dictator. Agree with documentation, dictated as a scribe.
--- NOTE | 2023-04-11 12:32 | P.PN ---
Subjective Progress Note Date: 04/11/23 patient 73-year-old lady with past medical history significant for enteric cancer presented to the ER because of feeling of lightheaded and fevers. Patient is currently undergoing chemotherapy for her cancer. Patient states the last few days she has been noticing that she developing low-grade fevers. Patient also complained of lightheadedness and dizziness. Complaining of headac hes as well. No complain of cough. No shortness of breath. Denies any chest pain or palpitations. No complain of nausea, vomiting abdominal pain. Because of these complaints patient presented to ER. Patient also complaining of left toe drainage which is new Initial lab work done in the ER showed WBC 2.9, hemoglobin 6.7, platelet count 82, sodium 1:30, potassium 3.5, BUN 14, creatinine 0.58, lactic acid 2.7, calcium 7.7, AST 37, ALT 37 Influenza A and B- RSV negative, COVID-19 negative Chest x-ray done in the ER showed patchy posterior basal opacity on the lateral view this could represent atelectasis or developing infiltrate Patient admitted to medicine service 04/09. Patient seen and examined. No further episodes of fevers. Continues to have low appetite 04/10. Patient seen and examined. 04/10 and the patient seen and examined. No further episodes of fevers. Patient stated that she feels much stronger. Denies any lightheadedness or dizziness REVIEW OF SYSTEMS: CONSTITUTIONAL: No fever, no malaise,. CARDIOVASCULAR: No chest pain, no palpitations, no syncope. PULMONARY: No shortness of breath, no cough, GASTROINTESTINAL: No diarrhea, no nausea, no vomiting, no abdominal pain. NEUROLOGICAL: No headaches, no weakness, PHYSICAL EXAMINATION: GENERAL: The patient is alert and oriented x3, not in any acute distress. Well developed, well nourished. HEENT: Pupils are round and equally reacting to light. EOMI. No scleral icterus. No conjunctival pallor. Normocephalic, atraumatic. No pharyngeal erythema. No thyromegaly. CARDIOVASCULAR: S1 and S2 present. No murmurs, rubs, or gallops. PULMONARY: Chest is clear to auscultation, no wheezing or crackles. ABDOMEN: Soft, nontender, nondistended, normoactive bowel sounds. No palpable organomegaly. MUSCULOSKELETAL: No joint swelling or deformity. EXTREMITIES: No cyanosis, clubbing, or pedal edema. NEUROLOGICAL: Gross neurological examination did not reveal any focal deficits. SKIN: No rashes. Assessment and plan Fever Bacterial pneumonia Anemia Thrombocytopenia Lactic acidosis Monitor vital signs Monitor CBC Monitor CMP Continue telemetry monitoring Follow-up on blood cultures, initial blood cultures positive for Streptococcus viridans. Follow up on repeat blood cultures Continue IV Rocephin Continue antiemetics ID following Hematology oncology following Labs and medication were reviewed.. Continue same treatment. Continue with symptomatic treatment. Resume home medication. Monitor labs and vitals. DVT and GI prophylaxis. Further recommendations as per clinical course of the patient Dictation was produced using [employer] dictation software. please excuse any grammatical, word or spelling errors. Objective - Vital Signs Vital signs: Vital Signs Temp 98.9 F 04/11/23 07:20 Pulse 78 04/11/23 07:20 Resp 18 04/11/23 07:20 BP 120/65 04/11/23 07:20 Pulse Ox 100 04/11/23 07:20 FiO2 21 04/09/23 07:52 Intake & Output 04/10/23 04/11/23 04/11/23 18:59 06:59 18:59 Intake Total 450 600 Balance 450 600 Intake: Intake, IV Titration 450 Amount Sodium Chloride 0.9% 1, 450 000 ml @ 75 mls/hr IV . [id number] [facility] Rx#:[id number] Oral 600 Other: Voiding Method Toilet # Voids 3 - Labs CBC & Chem 7: 04/11/23 05:59 04/11/23 05:59 Labs: Abnormal Lab Results - Last 24 Hours (Table) 04/10/23 04/10/23 04/11/23 Range/Units 05:50 05:50 05:59 WBC 2.00 L 3.37 L (4.50-10.00) X 10*3/uL RBC 3.21 L 2.94 L (4.10-5.20) X 10*6/uL Hgb 9.1 L 8.3 L (12.0-15.0) d/dL Hct 29.3 L 26.8 L (37.2-46.3) % MCHC 31.1 L 31.0 L (32.0-37.0) d/dL RDW 18.3 H 17.8 H (11.5-14.5) % Plt Count 105 L 87 L (140-440) X 10*3/uL Neutrophils # 0.91 L (1.80-7.70) X 10*3/uL Lymphocytes # 0.81 L 0.89 L (0.90-5.00) X 10*3/uL Monocytes # 0.17 L (0.20-1.00) X 10*3/uL Eosinophils # 0.02 L (0.04-0.35) X 10*3/uL BUN 4.7 L (9.0-27.0) mg/dL Creatinine 0.5 L (0.6-1.5) mg/dL BUN/Creatinine Ratio 9.40 L (12.00-20.00) Ratio Glucose 120 H (70-110) mg/dL Calcium 8.2 L (8.7-10.3) mg/dL Alkaline Phosphatase 443 H (41-126) U/L Total Protein 5.0 L (6.2-8.2) d/dL Albumin 3.0 L (3.8-4.9) d/dL Albumin/Globulin Ratio 1.50 L (1.60-3.17) Ratio // Range/Units 05:59 WBC (4.50-10.00) X 10*3/uL RBC (4.10-5.20) X 10*6/uL Hgb (12.0-15.0) d/dL Hct (37.2-46.3) % MCHC (32.0-37.0) d/dL RDW (11.5-14.5) % Plt Count (140-440) X 10*3/uL Neutrophils # (1.80-7.70) X 10*3/uL Lymphocytes # (0.90-5.00) X 10*3/uL Monocytes # (0.20-1.00) X 10*3/uL Eosinophils # (0.04-0.35) X 10*3/uL BUN 5.0 L (9.0-27.0) mg/dL Creatinine 0.5 L (0.6-1.5) mg/dL BUN/Creatinine Ratio 10.00 L (12.00-20.00) Ratio Glucose 124 H (70-110) mg/dL Calcium 8.1 L (8.7-10.3) mg/dL Alkaline Phosphatase 402 H (41-126) U/L Total Protein 4.7 L (6.2-8.2) d/dL Albumin 2.7 L (3.8-4.9) d/dL Albumin/Globulin Ratio 1.35 L (1.60-3.17) Ratio Microbiology - Last 24 Hours (Table) 04/09/23 10:15 Gram Stain - Final Toe - Left First Wound Culture - Final Proteus mirabilis Enterobacter aerogenes 04/07/23 21:30 Blood Culture - Preliminary Blood 04/08/23 11:14 Gram Stain - Final Sputum Sputum Culture - Final 04/07/23 21:15 Blood Culture Gram Stain - Preliminary Blood Blood Culture - Preliminary Streptococcus viridans group
--- NOTE | 2023-04-11 14:47 | P.PN ---
Subjective Progress Note Date: 04/10/23 Principal diagnosis: Fever/pneumonia Patient is a 73 year old female with a past medical history significant for pancreatic adenocarcinoma currently on neoadjuvant chemo, patient presenting to the hospital for evaluation of feeling lightheaded any fever patient symptom has been going on for a few days before presentation to the hospital, patient also have a cough with yellow sputum chest x-ray did shows patchy basilar opacity concerning for pneumonia. On today's evaluation that is 04/10/2023, the patient remains to be afebrile, the patient is breathing comfortably on room air, the patient cough is decreased intensity of chest pain no nausea no vomiting no abdominal pain or diarrhea. Patient did have white count of 2.0 , creatinine 0.5, blood culture with Strep tococcus viridans sputum cultures so far negative Objective - Vital Signs Vital signs: Vital Signs Temp 98.4 F 04/10/23 07:18 Pulse 73 04/10/23 07:18 Resp 16 04/10/23 07:18 BP 134/71 04/10/23 07:18 Pulse Ox 99 04/10/23 07:18 FiO2 21 04/09/23 07:52 Intake & Output 04/09/23 04/10/23 04/10/23 18:59 06:59 18:59 Other: # Voids 2 - Exam GENERAL DESCRIPTION: An elderly female lying in bed in no distress RESPIRATORY SYSTEM: Unlabored breathing , decreased breath sounds at bases HEART: S1 S2 regular rate and rhythm , ABDOMEN: Soft , no tenderness EXTREMITIES: No edema feet - Labs CBC & Chem 7: 04/11/23 05:59 04/11/23 05:59 Labs: Microbiology - Last 24 Hours (Table) 04/08/23 11:14 Gram Stain - Final Sputum Sputum Culture - Final 04/07/23 21:15 Blood Culture Gram Stain - Preliminary Blood Blood Culture - Preliminary Streptococcus viridans group 04/09/23 10:15 Gram Stain - Preliminary Toe - Left First 04/07/23 21:30 Blood Culture - Preliminary Blood Assessment and Plan (1) Community acquired pneumonia Current Visit: Yes Status: Acute Code(s): J18.9 - PNEUMONIA, UNSPECIFIED ORGANISM SNOMED Code(s): 261772105 (2) Fever Current Visit: Yes Status: Acute Priority: High Code(s): R50.9 - FEVER, UNSPECIFIED SNOMED Code(s): 727163194 (3) Bacteremia Current Visit: Yes Status: Acute Code(s): R78.81 - BACTEREMIA SNOMED Code(s): 6962880 Plan: 1patient is a hospital with sepsis in this patient who did have a fever tachycardia and leukopenia, patient also have a cough with some yellowish sputum with evidence of infiltrate on the chest is a high clinical sebaceous for the morning to be the likely etiology patient also complaining of some drainage from the left big toe but no evidence of any cellulitis clinically and x-ray did not show any abnormality to the left big toe 2-patient did have a positive blood culture with strep and advanced possible contamination is only once and positive however blood cultures will be repeated to document clearance 3-patient to continue with Rocephin hopefully finishing therapy with oral antibiotics Time with Patient: Less than 30
--- NOTE | 2023-04-11 14:48 | P.PN ---
Subjective Progress Note Date: 04/11/23 Principal diagnosis: Fever/pneumonia Patient is a 73 year old female with a past medical history significant for pancreatic adenocarcinoma currently on neoadjuvant chemo, patient presenting to the hospital for evaluation of feeling lightheaded any fever patient symptom has been going on for a few days before presentation to the hospital, patient also have a cough with yellow sputum chest x-ray did shows patchy basilar opacity concerning for pneumonia. On today's evaluation that is 04/11/2023, the patient continues to be afebrile, the patient is breathing comfortably on room air, the patient cough is decreased intensity and mostly dry in nature, the patient denies chest pain no nausea no vomiting no abdominal pain or diarrhea. Patient denies pain to left toe area and no further drainage Patient did have white count of 3.37 , creatinine 0.5, blood culture with Streptococcus viridans sputum cultures so far negative, left toe culture now growing gram-negative bacilli Objective - Vital Signs Vital signs: Vital Signs Temp 98.9 F 04/11/23 07:20 Pulse 78 04/11/23 07:20 Resp 18 04/11/23 07:20 BP 120/65 04/11/23 07:20 Pulse Ox 100 04/11/23 07:20 FiO2 21 04/09/23 07:52 Intake & Output 04/10/23 04/11/23 04/11/23 18:59 06:59 18:59 Intake Total 450 600 Balance 450 600 Intake: Intake, IV Titration 450 Amount Sodium Chloride 0.9% 1, 450 000 ml @ 75 mls/hr IV . [id number] [facility] Rx#:[id number] Oral 600 Other: Voiding Method Toilet # Voids 3 - Exam GENERAL DESCRIPTION: An elderly female lying in bed in no distress RESPIRATORY SYSTEM: Unlabored breathing , decreased breath sounds at bases HEART: S1 S2 regular rate and rhythm , ABDOMEN: Soft , no tenderness EXTREMITIES: No edema feet - Labs CBC & Chem 7: 04/11/23 05:59 04/11/23 05:59 Labs: Abnormal Lab Results - Last 24 Hours (Table) 04/10/23 04/10/23 04/11/23 Range/Units 05:50 05:50 05:59 WBC 2.00 L 3.37 L (4.50-10.00) X 10*3/uL RBC 3.21 L 2.94 L (4.10-5.20) X 10*6/uL Hgb 9.1 L 8.3 L (12.0-15.0) d/dL Hct 29.3 L 26.8 L (37.2-46.3) % MCHC 31.1 L 31.0 L (32.0-37.0) d/dL RDW 18.3 H 17.8 H (11.5-14.5) % Plt Count 105 L 87 L (140-440) X 10*3/uL Neutrophils # 0.91 L (1.80-7.70) X 10*3/uL Lymphocytes # 0.81 L 0.89 L (0.90-5.00) X 10*3/uL Monocytes # 0.17 L (0.20-1.00) X 10*3/uL Eosinophils # 0.02 L (0.04-0.35) X 10*3/uL BUN 4.7 L (9.0-27.0) mg/dL Creatinine 0.5 L (0.6-1.5) mg/dL BUN/Creatinine Ratio 9.40 L (12.00-20.00) Ratio Glucose 120 H (70-110) mg/dL Calcium 8.2 L (8.7-10.3) mg/dL Alkaline Phosphatase 443 H (41-126) U/L Total Protein 5.0 L (6.2-8.2) d/dL Albumin 3.0 L (3.8-4.9) d/dL Albumin/Globulin Ratio 1.50 L (1.60-3.17) Ratio Microbiology - Last 24 Hours (Table) 04/07/23 21:30 Blood Culture - Preliminary Blood 04/09/23 10:15 Gram Stain - Preliminary Toe - Left First Wound Culture - Preliminary Gram Neg Bacilli 04/08/23 11:14 Gram Stain - Final Sputum Sputum Culture - Final 04/07/23 21:15 Blood Culture Gram Stain - Preliminary Blood Blood Culture - Preliminary Streptococcus viridans group Assessment and Plan (1) Community acquired pneumonia Current Visit: Yes Status: Acute Code(s): J18.9 - PNEUMONIA, UNSPECIFIED ORGANISM SNOMED Code(s): 728845452 (2) Fever Current Visit: Yes Status: Acute Priority: High Code(s): R50.9 - FEVER, UNSPECIFIED SNOMED Code(s): 583624076 Plan: 1patient is a hospital with sepsis in this patient who did have a fever tachycardia and leukopenia, patient also have a cough with some yellowish sputum with evidence of infiltrate on the chest is a high clinical sebaceous for the morning to be the likely etiology patient also complaining of some drainage from the left big toe but no evidence of any cellulitis clinically and x-ray did not show any abnormality to the left big toe 2-patient did have a positive blood culture with strep and advanced possible contamination is only once and positive however blood cultures will be repeated to document clearance 3-patient left a culture now growing gram-negative bacilli with ID sensitivities pending however no significant inflammation of the left toe was noticed the sudden reported some purulent drainage 4we will continue the patient Rocephin while waiting for the cultures to finalize Time with Patient: Less than 30
[2023-04-12 08:05] VITALS: RESP 17
[2023-04-12 09:31] VITALS: BMI 26.2
--- NOTE | 2023-04-12 12:40 | P.DS ---
Providers Date of admission: 04/07/23 23:40 Expected date of discharge: 04/12/23 Attending physician: Max Christensen Consults: 04/07/23 23:40 Consult Physician Routine Consulting Provider: oRel Copeland Consult Reason/Comments: known Do you want consulting provider notified?: Yes 04/08/23 09:49 Consult Physician Routine Consulting Provider: Destiny Sands Consult Reason/Comments: Fever, immunosuppressed Do you want consulting provider notified?: Yes Primary care physician: Ulysses Monroy Hospital Course: Discharge diagnoses; Fever Bacterial pneumonia Anemia Thrombocytopenia Lactic acidosis Hospital course; patient 73-year-old lady with past medical history significant for enteric cancer presented to the ER because of feeling of lightheaded and fevers. Patient is currently undergoing chemotherapy for her cancer. Patient states the last few days she has been noticing that she developing low-grade fevers. Patient also complained of lightheadedness and dizziness. Complaining of headaches as well. No complain of cough. No shortness of breath. Denies any chest pain or palpitations. No complain of nausea, vomiting abdominal pain. Because of these complaints patient presented to ER. Patient also complaining of left toe drainage which is new Initial lab work done in the ER showed WBC 2.9, hemoglobin 6.7, platelet count 82, sodium 1:30, potassium 3.5, BUN 14, creatinine 0.58, lactic acid 2.7, calcium 7.7, AST 37, ALT 37 Influenza A and B- RSV negative, COVID-19 negative Chest x-ray done in the ER showed patchy posterior basal opacity on the lateral view this could represent atelectasis or developing infiltrate Patient admitted to medicine service 04/09. Patient seen and examined. No further episodes of fevers. Continues to have low appetite 04/10. Patient seen and examined. 04/10 and the patient seen and examined. No further episodes of fevers. Patient stated that she feels much stronger. Denies any lightheadedness or dizziness 04/12. Patient seen and examined. ID recommended discharging patient on Ceftin for one week. Outpatient follow-up with ID and oncology PHYSICAL EXAMINATION: GENERAL: The patient is alert and oriented x3, not in any acute distress. Well developed, well nourished. HEENT: Pupils are round and equally reacting to light. EOMI. No scleral icterus. No conjunctival pallor. Normocephalic, atraumatic. No pharyngeal erythema. No thyromegaly. CARDIOVASCULAR: S1 and S2 present. No murmurs, rubs, or gallops. PULMONARY: Chest is clear to auscultation, no wheezing or crackles. ABDOMEN: Soft, nontender, nondistended, normoactive bowel sounds. No palpable organomegaly. MUSCULOSKELETAL: No joint swelling or deformity. EXTREMITIES: No cyanosis, clubbing, or pedal edema. NEUROLOGICAL: Gross neurological examination did not reveal any focal deficits. SKIN: No rashes. Dictation was produced using [employer] dictation software. please excuse any grammatical, word or spelling errors. Patient Condition at Discharge: Fair Plan - Discharge Summary Discharge Rx Participant: No New Discharge Prescriptions: New cefUROXime axetiL [Cefuroxime] 500 mg PO BID 7 Days #14 tab Discharge Medication List cefUROXime axetiL [Cefuroxime] 500 mg PO BID 7 Days #14 tab 04/12/23 [Rx] Follow up Appointment(s)/Referral(s): Mingo Baker [STAFF PHYSICIAN] - 04/30/23 11:45 am Jyoti Knott NPC [Nurse Practitioner] - 04/23/23 3:00 pm Ulysses Monroy [Primary Care Provider] - 1-2 days Destiny Sands MD [STAFF PHYSICIAN] - 1 Week Discharge Disposition: HOME SELF-CARE
[2023-04-12 14:13] VITALS: BP 123/74; PULSE 72; TEMP 98.3
--- NOTE | 2023-04-12 15:11 | P.PN ---
Subjective Progress Note Date: 04/12/23 Principal diagnosis: Pancreatic adenocarcinoma, fever In follow-up today no new c/o, Tmax 100.1F, pt states she has not taken any tylenol for temps. No N, diarrhea, she is tolerating oral intake, she is ambulatory. Objective - Vital Signs Vital signs: Vital Signs Temp 99.3 F 04/12/23 08:04 Pulse 66 04/12/23 08:04 Resp 17 04/12/23 08:04 BP 125/71 04/12/23 08:04 Pulse Ox 96 04/12/23 08:04 FiO2 21 04/09/23 07:52 Intake & Output 04/11/23 04/12/23 04/12/23 18:59 06:59 18:59 Intake Total 600 Balance 600 Weight 69.4 kg Intake: Oral 600 Other: Voiding Method Toilet Toilet # Voids 3 2 - Constitutional General appearance: Present: average body habitus, cooperative, no acute distress - EENT Eyes: Present: anicteric sclerae, EOMI ENT: Present: hearing grossly normal - Respiratory Details: Respirations even and unlabored - Cardiovascular Details: Skin warm and dry to touch, pedal pulses palpable 2+ - Peripheral edema leg Peripheral Edema: bilateral: None - Integumentary Integumentary: Present: normal - Neurologic Neurologic: Present: CNII-XII intact - Musculoskeletal Musculoskeletal: Present: strength equal bilaterally - Psychiatric Psychiatric: Present: A&O x's 3, appropriate affect, intact judgment & insight - Labs CBC & Chem 7: 04/11/23 05:59 04/11/23 05:59 Labs: Microbiology - Last 24 Hours (Table) 04/10/23 11:40 Blood Culture - Preliminary Blood 04/07/23 21:15 Blood Culture Gram Stain - Final Blood Blood Culture - Final Streptococcus viridans group 04/07/23 21:30 Blood Culture - Preliminary Blood 04/09/23 10:15 Gram Stain - Final Toe - Left First Wound Culture - Final Proteus mirabilis Enterobacter aerogenes Assessment and Plan (1) Fever Status: Acute Priority: High Code(s): R50.9 - FEVER, UNSPECIFIED SNOMED Code(s): 615953223 (2) Pancytopenia due to chemotherapy Status: Acute Priority: High Code(s): D61.810 - ANTINEOPLASTIC CHEMOTHERAPY INDUCED PANCYTOPENIA SNOMED Code(s): 6783007 (3) Pancreatic cancer Status: Acute Priority: High Code(s): C25.9 - MALIGNANT NEOPLASM OF PANCREAS, UNSPECIFIED SNOMED Code(s): 592837925 Plan: Fever -Pancultures completed, C&S done -ID to make final antibiotic recommendations and duration Pancytopenia 2/2 chemo -exacerbated by acute infection -pt is s/p 1 unit PRBCs, has not needed any further transfusions needed since admit -CBC has been stable, no CBC today Pancreatic adenocarcinoma -Due to complete neoadjuvant chemotherapy today. -Delay treatment until pt completes abx course, pending ID recs. -F/U with [employer] prior to last cycle of chemo appt in chart -Patient and he has follow-up appointments with Dr. Baker, Surgical Oncology with a tentative surgery date of 05/31/23. Continue with this course at this time. -Pt understands plan of care Pt ok from Onc standpoint for DC once cleared by IM and consulting Physicians Dr attests: I have seen and examined pt, performed H&P, developed impression and plan of care. Discussed with dictator. Agree with documentation, dictated as a scribe.
== END 2023-04-12 14:56 | disposition home or self-care (01) | DRG 871 ==
LOC: EC 20:47 → 5NMEDONC 23:40
PROVIDERS: ADMIT Hospitalist; ATTEND Hospitalist
PROC: 30233N1 Transfusion of Nonautologous Red Blood Cells into Peripheral Vein, Percutaneous Approach (ICD-10-PCS; principal; 2023-04-08)
DX: A41.59 Other Gram-negative sepsis (principal); D61.810 Antineoplastic chemotherapy induced pancytopenia; K83.1 Obstruction of bile duct; J15.6 Pneumonia due to other Gram-negative bacteria; C25.9 Malignant neoplasm of pancreas, unspecified; D84.9 Immunodeficiency, unspecified; E87.20 Acidosis, unspecified; T45.1X5A Adverse effect of antineoplastic and immunosuppressive drugs, initial encounter; S61.452A Open bite of left hand, initial encounter; G62.0 Drug-induced polyneuropathy; R01.1 Cardiac murmur, unspecified; X58.XXXA Exposure to other specified factors, initial encounter; W55.01XA Bitten by cat, initial encounter; Z85.07 Personal history of malignant neoplasm of pancreas; Z20.822 Contact with and (suspected) exposure to COVID-19; Z87.891 Personal history of nicotine dependence
CPT/HCPCS: 36415; 71046; 80053; 81003; 83605; 83690; 83735; 84100; 85025; 86140; 86850; 86900; 86901; 86920; 87040; 87070; 87077; 87186; 87205; 87636; 94760; 96361; 96365; 96366; 96367; 96368; 99285

== ENCOUNTER → 2023-04-23 | Outpatient (CLI) | payer MEDICARE ==
--- NOTE | 2023-04-23 19:13 | CT ---
EXAMINATION TYPE: CT abdomen w con CT DLP: 648.2 mGycm, Automated exposure control for dose reduction was used. DATE OF EXAM: 04/23/2023 7:03 PM COMPARISON: None CLINICAL INDICATION:Female, 73 years old with history of R17 JAUNDICE; Jaundice, pancreatic cancer TECHNIQUE: Axial CT of the abdomen . Sagittal and coronal reformats were created on a separate works tation. Contrast used:100 cc mL of Isovue 300 with IV Contrast, (none if empty) Oral contrast used: with Oral Contrast (none if empty) FINDINGS: LOWER CHEST: Right Fat-containing Bochdalek hernia. ABDOMEN LIVER: Scattered low density lesions are seen in the liver the largest in the right hepatic lobe supe rior aspect measuring up to 3.9 cm. Additional smaller ill-defined lesions are seen both in the left and right hepatic lobe. GALLBLADDER AND BILE DUCTS: A main duct biliary stent is in place. There is high density material in the distal biliary stent most pronounced series 4 image 43. There is intrahepatic and extrahepatic bi liary dilation extra hepatic biliary dilation up to 3.3 cm. Scattered low-density lesions are seen throughout the liver most proximal right hepatic lobe Superior aspect measuring up to 5.0 cm. PANCREAS: Hazy ill-defined masslike appearance of the pancreatic head measuring at least 3.2 x 3.2 cm . The main duct dilation extending away from this is dilated extending into the tail. SPLEEN: Unremar kable. ADRENAL GLANDS: Unremarkable. KIDNEYS AND URETERS: Peripelvic renal cysts bilaterally. No evidence for hydronephrosis. There is rig ht nonobstructing 3 mm calculus. STOMACH AND BOWEL: No evidence of bowel obstruction. PERITONEUM/RETROPERITONEUM: No evidence of pneumoperitoneum or free fluid. VASCULATURE: No evidence of aortic aneurysm. MUSCULOSKELETAL: No acute osseous abnormalities LYMPH NODES: No gross evidence for lymphadenopathy. SOFT TISSUE/ABDOMINAL WALL: Technique and local hernia. IMPRESSION: 1. Main duct Biliary stent with high density debris near the inferior aspect favoring to represent o bstructing debris given dilation of the central and intrahepatic biliary system. ERCP may be of benef it. 2. Scattered hepatic low density lesions concerning for metastatic disease until proven otherwise. 3. Pancreatic head/neck mass like area with main duct dilation extending into the tail. 4. Nonobstructing right renal calculi. Bilateral parapelvic renal cysts.
== END | disposition home or self-care (01) ==
LOC: RADCTMAIN 17:12
PROVIDERS: ATTEND Internal Medicine Hematology & Oncology
DX: C25.0 Malignant neoplasm of head of pancreas (principal); N20.0 Calculus of kidney; N28.1 Cyst of kidney, acquired; R17 Unspecified jaundice; Z71.3 Dietary counseling and surveillance; Z96.89 Presence of other specified functional implants
CPT/HCPCS: 74160; Q9967

== ENCOUNTER → 2023-05-23 | Outpatient (CLI) | payer MEDICARE ==
--- NOTE | 2023-05-24 10:04 | XR ---
EXAMINATION TYPE: XR lumbosacral spine 5 views DATE OF EXAM: 05/23/2023 Comparison: 05/17/2023 Clinical History: 73-year-old female C25.0,Z71.3 Findings: Metallic and plastic biliary stents are redemonstrated. There is advanced hypertrophic facet arthropa thy throughout the lumbar spine especially mid to lower lumbar spine. Advanced degenerative disc dise ase L5-S1. Degenerative grade 1 anterolisthesis L4-L5 redemonstrated. Mild superior endplate deformit y and slight anterior wedging of L1 vertebral body remains unchanged. No pars interarticularis defect . Impression: 1. Markedly advanced hypertrophic facet arthropathy especially mid to lower lumbar spine with degener ative grade 1 anterolisthesis L4-L5. 2. Advanced degenerative disc disease L5-S1. 3. Unchanged mild superior endplate deformity of L1. No new vertebral compression collapse.
== END | disposition home or self-care (01) ==
LOC: RADXRMAIN 16:56
PROVIDERS: ATTEND Internal Medicine Hematology & Oncology
DX: C25.0 Malignant neoplasm of head of pancreas (principal); M43.16 Spondylolisthesis, lumbar region; M51.37 Other intervertebral disc degeneration, lumbosacral region; M47.816 Spondylosis without myelopathy or radiculopathy, lumbar region; Z71.3 Dietary counseling and surveillance
CPT/HCPCS: 72110

== ENCOUNTER 2024-12-01 15:57 | Inpatient (IN) | payer MEDICARE ==
[2024-12-01] MEDS: LACTATED RINGERS 500 ML IV ONE (18:06)
[2024-12-01 18:33] LABS: MCH 36.2 pg (27.0-32.0); MCHC 33.7 g/dL (32.0-37.0); MCV 107.5 fL (80.0-97.0); Mean Platelet Volume 12.1 fL (9.5-12.2); RBC 1.74 10*6/uL (4.10-5.20); WBC 9.13 10*3/uL (4.50-10.00)
--- NOTE | 2024-12-01 18:33 | XR ---
EXAMINATION TYPE: XR chest 2V DATE OF EXAM: 12/01/2024 6:17 PM COMPARISON: 12/29/2023 CLINICAL INDICATION: Female, 74 years old with history of Weakness, TECHNIQUE: XR chest 2V view(s) obtained. FINDINGS: The heart size is normal. The pulmonary vasculature is normal. There is a small left pleural effusion. Minimal right pleural effusion is present.. Port is on the right with the tip in the superior vena cava region. IMPRESSION: 1. Small bilateral pleural effusions [facility], , 12/01/2024 6:31 PM
--- NOTE | 2024-12-01 18:41 | ED ---
Weakness HPI - General Chief complaint: Extremity Problem,Nontraumatic Stated complaint: B/L Swelling in Legs/AMS/Just had Chemo Time Seen by Provider: 12/01/24 17:13 Source: patient, RN notes reviewed Mode of arrival: ambulatory Limitations: no limitations - History of Present Illness Initial comments: This is a 74-year-old female who presents to the emergency department for generalized weakness. Patient has pancreatic cancer and follows with Dr. Baker. She is on a chemotherapy regimen, which she last received on 11/27. Son at bedside states that she continues to get progressively weaker. They have noticed that her blood pressure which is usually around 115-120 systolically has been lower in the 90s systolically. Today the patient went to walk up the stairs and essentially fell to her knees because she no longer had any energy. Denies any chest pain or shortness of breath. She has been having leg swelling, which seems to be getting progressively worse. They did try Lasix with her which was not effective. Her legs are not particularly painful. MD Complaint: generalized weakness - Related Data Home Medications Medication Instructions Recorded Confirmed Gabapentin [Neurontin] See Taper PO DIRECTED 05/15/23 11/27/24 Loperamide [Imodium] 2 mg PO DAILY PRN 09/23/23 11/27/24 Ondansetron [Zofran] 4 mg PO Q8HR PRN 09/23/23 11/27/24 glipiZIDE 5 mg PO DAILY 09/23/23 11/27/24 Nystatin [Nystatin Oral Susp] 5 ml PO DAILY 11/04/23 11/27/24 HYDROcodone/APAP 5-325MG [[place] 1 tab PO DIRECTED PRN 10/23/24 11/27/24 5-325] Furosemide [Lasix] 20 mg PO DAILY 11/13/24 11/27/24 Potassium Chloride 10 meq PO BID 11/13/24 11/27/24 Previous Rx's Medication Instructions Recorded Apixaban [Eliquis Starter Pack 10 mg PO DIRECTED 30 Days #1 05/20/23 (for VTE)] each Pantoprazole [Protonix] 40 mg PO AC-BRKFST #30 tab 05/20/23 Allergies Allergy/AdvReac Type Severity Reaction Status Date / Time No Known Allergies Allergy Verified 12/01/24 16:11 Review of Systems ROS Statement: Those systems with pertinent positive or pertinent negative responses have been documented in the HPI. ROS Other: All systems not noted in ROS Statement are negative. Past Medical History Past Medical History: Cancer, Diabetes Mellitus Additional Past Medical History / Comment(s): PANCREATIC. History of Any Multi-Drug Resistant Organisms: None Reported Past Surgical History: No Surgical Hx Reported Additional Past Surgical History / Comment(s): bile duct stent. Past Anesthesia/Blood Transfusion Reactions: No Reported Reaction Past Psychological History: No Psychological Hx Reported Smoking Status: Former smoker General Exam Limitations: no limitations General appearance: alert, in no apparent distress Head exam: Present: atraumatic, normocephalic, normal inspection Respiratory exam: Present: normal lung sounds bilaterally. Absent: respiratory distress, wheezes, rales, rhonchi, stridor Cardiovascular Exam: Present: regular rate, normal rhythm GI/Abdominal exam: Present: soft. Absent: tenderness Extremities exam: Present: other (Pitting edema to the bilateral lower extremities) Neurological exam: Present: alert, oriented X3, CN II-XII intact Psychiatric exam: Present: normal affect, normal mood Skin exam: Present: warm, dry Course Vital Signs 12/01/24 12/01/24 12/01/24 16:05 17:18 18:00 Temperature 99.2 F Pulse Rate 83 73 68 Respiratory 20 14 18 Rate Blood Pressure 90/61 90/60 96/65 O2 Sat by Pulse 96 100 98 Oximetry 12/01/24 19:00 Temperature Pulse Rate 65 Respiratory 18 Rate Blood Pressure 111/66 O2 Sat by Pulse 95 Oximetry Medical Decision Making - Medical Decision Making This is a 74-year-old female who presents to the emergency department for generalized weakness. Was pt. sent in by a medical professional or institution? @ -No Did you speak to anyone other than the patient for history? @ -Her son provided the majority of the history Did you review nursing and triage notes? @ -Yes, and I agree, it is accurate with regards to the patient's symptoms. Were old charts reviewed? @ -No Differential Diagnosis? @ -Differential Weakness: Hypoglycemia, shock, sepsis, hyponatremia, anemia, infection, [place], ETOH, adverse medicine reaction, overdose, stroke, this is not meant to be an all-inclusive list. EKG interpreted by me (3pts min.)? @ -EKG interpreted by me demonstrating the following: Sinus rhythm. Ventricula r rate 65 bpm, CT interval 164 ms, QRS duration 82 ms, QTc 392 ms. X-rays interpreted by me (1pt min.)? @ -Chest x-ray obtained. My interpretation identifies bilateral pleural effusions. CT interpreted by me (1pt min.)? @ -Not obtained U/S interpreted by me (1pt. min.)? @ -Duplex ultrasound of the bilateral lower extremities obtained. My interpretation identifies no evidence of a DVT. What testing was considered but not performed? (CT, X-rays, U/S, labs)? Why? @ -None What meds were considered but not given? Why? @ -None Did you discuss the management of the patient with other professionals? @ -Yes, Radha Wagner with [facility], who accepts the patient for admission Did you reconcile home meds? @ -No Was smoking cessation discussed for >3mins.? @ -No Was critical care preformed (if so, how long)? @ -No Were there social determinants of health that impacted care today? How? (Homelessness, low income, unemployed, alcoholism, drug addiction, capone sportation, low edu. Level, literacy, decrease access to med. care, correction, rehab)? @ -No Was there de-escalation of care discussed even if they declined? (Discuss DNR or withdrawal of care, Hospice)? @ -No What co-morbidities impacted this encounter? (DM, HTN, Smoking, COPD, CAD, Cancer, CVA, Hep., AIDS, mental health diagnosis, sleep apnea, morbid obesity)? @ -Pancreatic cancer, DM Was patient admitted / discharged? @ -Admitted. Lab work demonstrates a hemoglobin of 6.3 and hematocrit of 18.7. aPTT elevated at 109.3. She does have metastasis of the pancreatic cancer to the liver, which may be the cause of this. She is no longer anticoagulated. Patient denies any blood in her stool or black/tarry stools. Family states that she has had problems with anemia with the cancer requiring blood transfusions in the past. Chest x-ray demonstrates small bilateral pleural effusions. BNP negative. Duplex ultrasound of the bilateral lower extremities obtained revealing no evidence of a DVT. 1 unit of PRBCs administered. Patient admitted to medicine for weakness and anemia. Consult placed for hem/onc. Family did request an ultrasound of the liver to evaluate the status of her bile duct stent. Patient currently denies any abdominal pain. Ultrasound of the liver ordered with results pending at the time of admission. Case discussed with ED attending Dr. Evans. Undiagnosed new problem with uncertain prognosis? @ -None Drug Therapy requiring intensive monitoring for toxicity (Heparin, Nitro, Insulin, Cardizem)? @ -None Were any procedures done? @ -None Diagnosis/symptom? @ -Anemia, weakness, leg swelling Acute, or Chronic, or Acute on Chronic? @ -Acute Uncomplicated (without systemic symptoms) or Complicated (systemic symptoms)? @ -Complicated Side effects of treatment? @ -None Exacerbation, Progression, or Severe Exacerbation] @ -Not applicable Poses a threat to life or bodily function? @ -Yes, patient unable to function in her current state - Lab Data Result diagrams: 12/01/24 18:00 12/01/24 18:00 Lab Results 12/01/24 12/01/24 12/01/24 Range/Units 18:00 18:00 18:00 WBC 9.13 (4.50-10.00) 10*3/uL RBC 1.74 L (4.10-5.20) 10*6/uL Hgb 6.3 L* D (12.0-15.0) g/dL Hct 18.7 L* (37.2-46.3) % MCV 107.5 H (80.0-97.0) fL MCH 36.2 H (27.0-32.0) pg MCHC 33.7 (32.0-37.0) g/dL Plt Count 80 L (140-440) 10*3/uL MPV 12.1 (9.5-12.2) fL Immature Gran % (Auto) 0.7 % Neutrophils % (Manual) 92 % Lymphocytes % (Manual) 8 % Immature Gran # 0.06 H (0.00-0.04) 10*3/uL Neutrophils # (Manual) 8.40 H (1.3-7.7) k/uL Lymphocytes # (Manual) 0.73 L (1.0-4.8) k/uL Nucleated RBCs 0 (0-0) /100 WBC Manual Slide Review Performed Anisocytosis (manual) Present PT 11.3 (10.0-12.5) sec INR 1.0 (<1.2) APTT 109.3 H* (22.0-30.0) sec Sodium 132 L (137-145) mmol/L Potassium 4.7 (3.5-5.1) mmol/L Chloride 101 (98-107) mmol/L Carbon Dioxide 29 (22-30) mmol/L Anion Gap 2 mmol/L BUN 21 H (7-17) mg/dL Creatinine 0.56 (0.52-1.04) mg/dL Est GFR (CKD-EPI)AfAm >90 (>60 ml/min/1.73 sqM) Est GFR (CKD-EPI)NonAf >90 (>60 ml/min/1.73 sqM) Glucose 109 H (74-99) mg/dL Plasma Lactic Acid Danilo (0.7-2.0) mmol/L Calcium 8.0 L (8.4-10.2) mg/dL Phosphorus 3.9 (2.5-4.5) mg/dL Magnesium 2.4 H (1.6-2.3) mg/dL Total Bilirubin 1.2 (0.2-1.3) mg/dL AST 77 H (14-36) U/L ALT 33 (4-34) U/L Alkaline Phosphatase 560 H (38-126) U/L Troponin I (0.000-0.034) ng/mL NT-Pro-B Natriuret Pep 262 pg/mL Total Protein 5.0 L (6.3-8.2) g/dL Albumin 2.4 L (3.5-5.0) g/dL 12/01/24 12/01/24 Range/Units 18:00 18:00 WBC (4.50-10.00) 10*3/uL RBC (4.10-5.20) 10*6/uL Hgb (12.0-15.0) g/dL Hct (37.2-46.3) % MCV (80.0-97.0) fL MCH (27.0-32.0) pg MCHC (32.0-37.0) g/dL Plt Count (140-440) 10*3/uL MPV (9.5-12.2) fL Immature Gran % (Auto) % Neutrophils % (Manual) % Lymphocytes % (Manual) % Immature Gran # (0.00-0.04) 10*3/uL Neutrophils # (Manual) (1.3-7.7) k/uL Lymphocytes # (Manual) (1.0-4.8) k/uL Nucleated RBCs (0-0) /100 WBC Manual Slide Review Anisocytosis (manual) PT (10.0-12.5) sec INR (<1.2) APTT (22.0-30.0) sec Sodium (137-145) mmol/L Potassium (3.5-5.1) mmol/L Chloride (98-107) mmol/L Carbon Dioxide (22-30) mmol/L Anion Gap mmol/L BUN (7-17) mg/dL Creatinine (0.52-1.04) mg/dL Est GFR (CKD-EPI)AfAm (>60 ml/min/1.73 sqM) Est GFR (CKD-EPI)NonAf (>60 ml/min/1.73 sqM) Glucose (74-99) mg/dL Plasma Lactic Acid Danilo 1.2 (0.7-2.0) mmol/L Calcium (8.4-10.2) mg/dL Phosphorus (2.5-4.5) mg/dL Magnesium (1.6-2.3) mg/dL Total Bilirubin (0.2-1.3) mg/dL AST (14-36) U/L ALT (4-34) U/L Alkaline Phosphatase (38-126) U/L Troponin I <0.012 (0.000-0.034) ng/mL NT-Pro-B Natriuret Pep pg/mL Total Protein (6.3-8.2) g/dL Albumin (3.5-5.0) g/dL - Radiology Data Radiology results: report reviewed, image reviewed Disposition Clinical Impression: Weakness, Anemia, Leg swelling Disposition: ADMITTED IP TO THIS [facility] Referrals: Ulysses Monroy [Primary Care Provider] - 1-2 days
[2024-12-01 18:48] LABS: HCT 18.7 % (37.2-46.3); HGB 6.3 g/dL (12.0-15.0)
[2024-12-01 19:04] LABS: ALT 33 U/L (4-34); AST 77 U/L (14-36); African American GFR (CKD) >90 (>60 ml/min/1.73 sqM); Albumin 2.4 g/dL (3.5-5.0); Alkaline Phosphatase 560 U/L (38-126); Anion Gap 2 mmol/L; Blood Urea Nitrogen 21 mg/dL (7-17); Carbon Dioxide 29 mmol/L (22-30); Chloride 101 mmol/L (98-107); Glucose 109 mg/dL (74-99); Magnesium 2.4 mg/dL (1.6-2.3); Non-African American GFR(CKD) >90 (>60 ml/min/1.73 sqM); Phosphorus 3.9 mg/dL (2.5-4.5); Potassium 4.7 mmol/L (3.5-5.1); Sodium 132 mmol/L (137-145); Total Bilirubin 1.2 mg/dL (0.2-1.3)
[2024-12-01 19:07] LABS: Prothrombin Time 11.3 sec (10.0-12.5)
[2024-12-01 19:10] LABS: Partial Thromboplastin Time 109.3 sec (22.0-30.0)
[2024-12-01 19:12] LABS: NT-Pro-B-Type Natriuretic Pept 262 pg/mL
[2024-12-01 19:14] LABS: Lymphocytes # (M) 0.73 k/uL (1.0-4.8); Neutrophils % (M) 92 %; Nucleated Red Blood Cells 0 /100 WBC (0-0); Total Cells Counted 100
[2024-12-01 19:15] LABS: Platelet Count 80 10*3/uL (140-440)
[2024-12-01 19:16] LABS: Anisocytosis (M) Present
[2024-12-01] MEDS ORDERED: HYDROcodone/APAP 5-325MG 1 EACH TAB PO PRN (20:33)
[2024-12-01] MEDS ORDERED: NALOXONE 0.4 MG/ML 1 ML VIAL IV PRN (20:33)
[2024-12-01] MEDS ORDERED: ONDANSETRON 4 MG/2 ML VIAL IVP PRN (20:33)
--- NOTE | 2024-12-01 20:38 | US ---
EXAMINATION TYPE: US venous doppler duplex LE BI DATE OF EXAM: 12/01/2024 5:53 PM COMPARISON: 05/20/2023 CLINICAL INDICATION: Female, 74 years old with history of Leg swelling; patient states leg swelling. patient has pancreatic cancer. patient on chemo. was on eliquis but had to come off recently due to c hemo, Pain TECHNIQUE: The lower extremity deep venous system is examined utilizing real time linear array sonog carmel with graded compression, color doppler sonography, and spectral doppler. SIDE PERFORMED: Bilateral FINDINGS: VESSELS IMAGED: Common Femoral Vein Deep Femoral Vein Greater Saphenous Vein * Femoral Vein Popliteal Vein Small Saphenous Vein * Proximal Calf Veins (* superficial vessels) Right Leg: appears negative for dvt , Color Doppler imaging shows patency of the vessels. Spectral w aveforms are within normal limits. Left Leg: appears negative for dvt, Color Doppler imaging shows patency of the vessels. Spectral wav eforms are within normal limits. IMPRESSION: 1. Bilateral lower extremity ultrasound negative for deep venous thrombosis [facility], , 12/01/2024 8:36 PM
--- NOTE | 2024-12-01 21:10 | US ---
EXAMINATION TYPE: US liver DATE OF EXAM: 12/01/2024 COMPARISON: CT and US 05/18/2023 CLINICAL INDICATION: Female, 74 years old with history of Abdominal pain, hx of biliary stent; pancre atic cancer. patients son states biliary stent in the CBD that has collapsed before. weakness TECHNIQUE: Grayscale and color Doppler imaging of the right upper quadrant was performed. FINDINGS: EXAM MEASUREMENTS: Liver Length: 19.5 cm Gallbladder Wall: 0.4 cm CBD: 0.9 cm Right Kidney: 9.8 x 4.8 x 5.2 cm [employer] NOTES:slightly limited due to overlying bowel gas Pancreas: possible 2.3 x 2.5cm hypoechoic , heterogeneous area seen in the pancreatic head. The panc reatic duct is dilated and measures 6mm Liver: Increased attenuation. hepatomegaly. There are numerous hypoechoic lesions seen within, too m any to count. Largest measures 3.1 x 3.5 x 3.3cm in the anterior right lobe of the liver. Ascites pre sent Gallbladder: echogenic layering material seen, possible vascularity within. Wall irregularly thicken ed. Consider possible gallbladder neoplasm. Evidence for sonographic Garcia's sign: no CBD: echogenic olivier seen near what is thought to be the CBD, correlate for bile duct stent. If this is the CBD, it is dilated at 0.9cm. Right Kidney: wnl as best seen IMPRESSION: 1. Hypoechoic mass head of the pancreas. 2. Multiple hypoechoic lesions within the liver likely on the basis of metastatic lesions. 3. There appears to be a mass within the gallbladder wall with hypervascularity and irregular wall th ickening. Consider gallbladder neoplasm. [facility], , 12/01/2024 9:07 PM
[2024-12-02 02:31] LABS: Appearance,Urine Cloudy (Clear); Bacteria,Urine Occasional /hpf; Bilirubin,Urine Negative (Negative); Blood,Urine Negative (Negative); Color,Urine Yellow; Glucose,Urine (UA) Negative (Negative); Ketones,Urine Negative (Negative); Leukocyte Esterase,Urine Negative (Negative); Nitrite,Urine Negative (Negative); PH, Urine 5.5 (5.0-8.0); Protein,Urine Trace (Negative); RBC,Urine 1 /hpf (0-5); Squamous Epithelial Cell,Urine 2 /hpf (0-4); Uric Acid Crystals,Urine Occasional /hpf; Urobilinogen,Urine <2.0 mg/dL (<2.0); WBC,Urine 1 /hpf (0-5)
[2024-12-02] MEDS: PANTOPRAZOLE 40 MG/10 ML VIAL IV SCH (09:17)
[2024-12-02] MEDS ORDERED: ONDANSETRON ODT 4 MG TAB PO PRN (09:21)
[2024-12-02] MEDS: GABAPENTIN 300 MG CAP PO SCH (10:23)
[2024-12-02] MEDS: MORPHINE SULFATE 4 MG/ML SYRINGE IV PRN (10:24)
[2024-12-02] MEDS ORDERED: glipiZIDE 5 MG TAB PO PRN (12:07)
--- NOTE | 2024-12-02 12:12 | P.HPIM ---
History of Present Illness 74-year-old pleasant female came in complaints of generalized weakness and mental fogginess patient received chemotherapy on 18th of this month. Patient does have bilateral lower extremity swelling does take Lasix at home patient is mildly hyponatremic. Patient was also found to have low hemoglobin of around 6.5 received 180 of PRBC transfusion patient feels slightly better but still quite weak patient has an elevated MCV. Patient does have history of pancreatic cancer on chemotherapy as mentioned above patient had a liver ultrasound which showed a possible metastatic lesion in the liver and some gallbladder wall thickening although patient denied any significant abdominal pain. Chest x-ray showed mild bilateral pleural effusions patient denied any history of congestive heart failure. Venous Doppler left lower extremity did not show any DVT. REVIEW OF SYSTEMS: All other systems are negative except those mentioned in the HPI PHYSICAL EXAMINATION: GENERAL: The patient is alert and oriented x3, not in any acute distress. Appears to be a bit malnourished thin built HEENT: Pupils are round and equally reacting to light. EOMI. No scleral icterus. She does have conjunctival pallor. Normocephalic, atraumatic. No pharyngeal erythema. No thyromegaly. CARDIOVASCULAR: S1 and S2 present. No murmurs, rubs, or gallops. PULMONARY: Chest is clear to auscultation, no wheezing or crackles. ABDOMEN: Soft, nontender, nondistended, normoactive bowel sounds. No palpable organomegaly. MUSCULOSKELETAL: No joint swelling or deformity. EXTREMITIES: No cyanosis, clubbing, or pedal edema. NEUROLOGICAL: Gross neurological examination did not reveal any focal deficits. SKIN: No rashes. Assessment and plan -Generalized weakness tiredness secondary to pancreatic cancer and anemia patient received PRBC transfusion there is no evidence of acute GI bleed or any other bleed at this time patient has an elevated MCV of hematology is following the patient further workup elevated up to hematology. - Peripheral edema secondary to malnutrition, will use Lasix on as-needed basis and compression socks since patient has mild bilateral pleural effusions I will give her a dose of Lasix - Possible hypervolemic hyponatremia give her a dose of IV Lasix and repeat electrolytes tomorrow. - Moderate protein calorie malnutrition secondary to cancer will encourage high- protein diet and probably Ensure - Pancreatic cancer with metastasis oncology was consulted - Type 2 diabetes mellitus patient will be started on sliding scale insulin hold off on glipizide - Diabetic peripheral neuropathy patient will be resumed on gabapentin DVT prophylaxis: Low-dose Lovenox Past Medical History Past Medical History: Cancer, Diabetes Mellitus Additional Past Medical History / Comment(s): PANCREATIC. History of Any Multi-Drug Resistant Organisms: None Reported Past Surgical History: No Surgical Hx Reported Additional Past Surgical History / Comment(s): bile duct stent. Past Anesthesia/Blood Transfusion Reactions: No Reported Reaction Past Psychological History: No Psychological Hx Reported Smoking Status: Former smoker Medications and Allergies Home Medications Medication Instructions Recorded Confirmed Type Gabapentin [Neurontin] 600 mg PO TID 05/15/23 12/02/24 History Ondansetron [Zofran] 4 mg PO Q8HR PRN 09/23/23 12/02/24 History glipiZIDE 5 mg PO AC-BID PRN 09/23/23 12/02/24 History HYDROcodone/APAP 5-325MG [[place] 2 tab PO TID 10/23/24 12/02/24 History 5-325] Furosemide [Lasix] 20 mg PO DAILY PRN 11/13/24 12/02/24 History Potassium Chloride 10 meq PO BID PRN 11/13/24 12/02/24 History Allergies Allergy/AdvReac Type Severity Reaction Status Date / Time No Known Allergies Allergy Verified 12/02/24 07:13 Physical Exam Vitals: Vital Signs Temp Pulse Pulse Resp BP BP Pulse Ox 12/02/24 11:51 98.0 F 66 16 102/64 93 L 12/02/24 07:36 98.4 F 69 16 117/77 99 12/02/24 06:01 64 17 117/66 97 12/02/24 01:03 98 F 61 17 111/67 97 12/02/24 00:00 66 17 110/68 97 12/01/24 22:39 97.8 F 66 16 105/64 96 12/01/24 22:19 97.4 F L 64 17 94/63 95 12/01/24 21:57 98.3 F 69 17 102/65 93 L 12/01/24 19:00 65 18 111/66 95 12/01/24 18:00 68 18 96/65 98 12/01/24 17:18 73 14 90/60 100 12/01/24 16:05 99.2 F 83 20 90/61 96 Intake and Output 04/12/02/24 12/02/24 22:59 06:59 14:59 Intake Total 0 310 Balance 0 310 Intake: Blood Product 0 310 Rc As-1 Unit 0 310 [id number] Other: Weight 61.235 kg Results CBC & Chem 7: 12/01/24 18:00 12/01/24 18:00 Labs: Abnormal Lab Results - Last 24 Hours (Table) 12/01/24 12/01/24 12/01/24 Range/Units 18:00 18:00 18:00 RBC 1.74 L (4.10-5.20) 10*6/uL Hgb 6.3 L* D (12.0-15.0) g/dL Hct 18.7 L* (37.2-46.3) % MCV 107.5 H (80.0-97.0) fL MCH 36.2 H (27.0-32.0) pg Plt Count 80 L (140-440) 10*3/uL Immature Gran # 0.06 H (0.00-0.04) 10*3/uL Neutrophils # (Manual) 8.40 H (1.3-7.7) k/uL Lymphocytes # (Manual) 0.73 L (1.0-4.8) k/uL APTT 109.3 H* (22.0-30.0) sec Sodium 132 L (137-145) mmol/L BUN 21 H (7-17) mg/dL Glucose 109 H (74-99) mg/dL Calcium 8.0 L (8.4-10.2) mg/dL Magnesium 2.4 H (1.6-2.3) mg/dL AST 77 H (14-36) U/L Alkaline Phosphatase 560 H (38-126) U/L Total Protein 5.0 L (6.3-8.2) g/dL Albumin 2.4 L (3.5-5.0) g/dL Urine Appearance (Clear) Urine Protein (Negative) Uric Acid Crystals (None) /hpf Urine Bacteria (None) /hpf Crossmatch 12/01/24 12/02/24 Range/Units 20:16 01:06 RBC (4.10-5.20) 10*6/uL Hgb (12.0-15.0) g/dL Hct (37.2-46.3) % MCV (80.0-97.0) fL MCH (27.0-32.0) pg Plt Count (140-440) 10*3/uL Immature Gran # (0.00-0.04) 10*3/uL Neutrophils # (Manual) (1.3-7.7) k/uL Lymphocytes # (Manual) (1.0-4.8) k/uL APTT (22.0-30.0) sec Sodium (137-145) mmol/L BUN (7-17) mg/dL Glucose (74-99) mg/dL Calcium (8.4-10.2) mg/dL Magnesium (1.6-2.3) mg/dL AST (14-36) U/L Alkaline Phosphatase (38-126) U/L Total Protein (6.3-8.2) g/dL Albumin (3.5-5.0) g/dL Urine Appearance Cloudy H (Clear) Urine Protein Trace H (Negative) Uric Acid Crystals Occasional H (None) /hpf Urine Bacteria Occasional H (None) /hpf Crossmatch See Detail
[2024-12-02 12:30] LABS: HCT 24.3 % (37.2-46.3); HGB 7.9 g/dL (12.0-15.0); Immature Platelet Fraction 7.9 % (1.1-6.1); Lymphocytes # (A) 0.27 10*3/uL (0.90-5.00); Lymphocytes % (A) 5.9 %; MCH 32.8 pg (27.0-32.0); MCHC 32.5 g/dL (32.0-37.0); MCV 100.8 fL (80.0-97.0); Mean Platelet Volume 12.3 fL (9.5-12.2); Monocytes # (A) 0.02 10*3/uL (0.20-1.00); Monocytes % (A) 0.4 %; Neutrophils # (A) 4.24 10*3/uL (1.80-7.70); Neutrophils % (A) 92.8 %; RBC 2.41 10*6/uL (4.10-5.20); RDW 23.9 % (11.5-14.5); WBC 4.57 10*3/uL (4.50-10.00)
[2024-12-02 12:37] LABS: Platelet Count 59 10*3/uL (140-440)
[2024-12-02] MEDS: SODIUM CHLORIDE 0.9% 1,000 ML IV ONE (14:13)
[2024-12-02] MEDS: FUROSEMIDE 10 MG/ML 2 ML VIAL IV ONE (14:14)
[2024-12-02] MEDS: INSULIN LISPRO (HumaLOG) 100 UNIT/ML 10 mL VL SQ SCH (16:03)
[2024-12-02 17:13] LABS: Glucose,Whole Blood 136 mg/dL (70-110)
--- NOTE | 2024-12-02 19:28 | P.CONS ---
History of Present Illness - Reason for Consult Consult date: 12/02/24 pancreatic cancer Requesting physician: Patrizia Childress - Chief Complaint weakness - History of Present Illness Patient is a 74 year old female with PMH of pancreatic adenocarcinoma diagnosed earlier this year. She follows with Dr. Baker. She presented early September 2022 to [facility] with jaundice, progressive over a week, associated with dark urine, lightening of the stools, mild early satiety, vague abdominal discomfort. Workup confirmed CBD obstruction, transferred to [facility]. Bilirubin 14.7, alk phos 724, liver enzymes were elevated, CT AP showed a 4 cm mass in the pancreatic head/uncinate process, mildly enlarged right cardiophrenic lymph node 1.1 cm. EUS with ERCP attempted 09/18/22, unsuccessful. Repeat 09/24/22 successful placement of an uncovered metal stent, biopsies of pancreas and bile duct positive for adenocarcinoma consistent with pancreatic primary. Imaging discussed at [facility]. Tumor felt to have focal abutment to the posterior SMV, multiple large liver lesions. 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 MRI of the liver 11/03/22 confirmed the same. Rec ommendation for systemic neoadjuvant chemotherapy, reevaluation and possible excision. She started Gemzar and Abraxane 11/02/22 days 1 and 151 cycle, increased to day 1, 8, 15 with cycle 2, G-CSF added. Overall tolerated treatment well. She completed half of cycle 6 on 04/08/23, and then was admitted shortly after to [facility] for cholangitis and bacteremia. At this time, the last part of cycle 6 of treatment will be held, with plans for clinic f/u prior to proceeding to surgery. Pt has follow-up with Surgical Oncology Dr. Maldonado and is tentatively scheduled for surgery on 05/31/23, but was delayed till acute condition was adequately treated. Presurgical CT scan in the beginning of 09/04 unfortunately now showed definite development of multiple liver metastasis. The patient was therefore advised that she now appeared to have incurable disease. She did want active treatment, and was therefore switched to FOLFIRINOX, starting 09/09/23. She is status post 12 cycles, completing those in week 1 of 03/04. The patient was then placed on maintenance Xeloda after her visit in 04/04. Patient's MRI of the liver in 09/05 had shown new lesions that were concerning for progression. She had a liver biopsy on 09/24/24, that confirmed adenocarcinoma consistent with pancreatobiliary/upper GI sites. The patient was seen by GI oncology, Dr. Munson at [facility]. They agreed with the plan to treat her again with gemcitabine and Abraxane as she had never failed this regimen previously with possible clinical trials and subsequent lines if available. The patient was therefore started back on Gemzar and Abraxane on 10/23/24. She completed cycle 1, day 15 on 11/13/24 with G-CSF Patient presented to the emergency room for progressing generalized weakness and fatigue. Patient's family states patient has been having progressive symptoms as well as significant fatigue and reports of dysphagia/odynophagia with decrea sed oral intake over the last month. At today's visit patient is reporting back pain with radiculopathy down bilateral lower extremities and BLE edema. Denies nausea vomiting diarrhea, fever and chills. Labs reviewed, WBC 9.1, hemoglobin 6.3, platelets 80,000. 1 unit PRBCs was ordered. Creatinine 0.56, creatinine 90, BUN 21. Repeat CBC today showing hemoglobin of 7.9. Chest x-ray showing sma ll bilateral pleural effusions. Ultrasound liver revealing hypoechoic mass head of the pancreas. Multiple hypoechoic lesions within the liver. Appears to be a mass within the gallbladder wall with hypervascularity and irregular wall thickening. Bilateral lower extremity Dopplers were negative for DVT Review of Systems 10 point ROS is negative except as stated in the HPI Past Medical History Past Medical History: Cancer, Diabetes Mellitus Additional Past Medical History / Comment(s): PANCREATIC. History of Any Multi-Drug Resistant Organisms: None Reported Past Surgical History: No Surgical Hx Reported Additional Past Surgical History / Comment(s): bile duct stent. Past Anesthesia/Blood Transfusion Reactions: No Reported Reaction Past Psychological History: No Psychological Hx Reported Smoking Status: Former smoker Medications and Allergies Home Medications Medication Instructions Recorded Confirmed Type Gabapentin [Neurontin] 600 mg PO TID 05/15/23 12/02/24 History Ondansetron [Zofran] 4 mg PO Q8HR PRN 09/23/23 12/02/24 History glipiZIDE 5 mg PO AC-BID PRN 09/23/23 12/02/24 History HYDROcodone/APAP 5-325MG [[place] 2 tab PO TID 10/23/24 12/02/24 History 5-325] Furosemide [Lasix] 20 mg PO DAILY PRN 11/13/24 12/02/24 History Potassium Chloride 10 meq PO BID PRN 11/13/24 12/02/24 History Allergies Allergy/AdvReac Type Severity Reaction Status Date / Time No Known Allergies Allergy Verified 12/02/24 07:13 Physical Exam Vitals: Vital Signs Temp Pulse Pulse Resp BP BP Pulse Ox 12/02/24 07:36 98.4 F 69 16 117/77 99 12/02/24 06:01 64 17 117/66 97 12/02/24 01:03 98 F 61 17 111/67 97 12/02/24 00:00 66 17 110/68 97 12/01/24 22:39 97.8 F 66 16 105/64 96 12/01/24 22:19 97.4 F L 64 17 94/63 95 12/01/24 21:57 98.3 F 69 17 102/65 93 L 12/01/24 19:00 65 18 111/66 95 12/01/24 18:00 68 18 96/65 98 12/01/24 17:18 73 14 90/60 100 12/01/24 16:05 99.2 F 83 20 90/61 96 Intake and Output 12/01/24 12/02/24 12/02/24 22:59 06:59 14:59 Intake Total 0 310 Balance 0 310 Intake: Blood Product 0 310 Rc As-1 Unit 0 310 [id number] Other: Weight 61.235 kg - Constitutional General appearance: no acute distress - EENT Eyes: anicteric sclerae, EOMI ENT: hearing grossly normal - Respiratory Respiratory: bilateral: CTA - Cardiovascular Rhythm: regular - Gastrointestinal mild distention, no dullness noted on percussion. Abd non tender - Integumentary Integumentary: no cyanotic, no jaundiced - Musculoskeletal Musculoskeletal: generalized weakness - Psychiatric Psychiatric: A&O x's 3 Results CBC & Chem 7: 12/02/24 12:09 12/01/24 18:00 Labs: Abnormal Lab Results - Last 24 Hours (Table) 04/12/01/24 12/01/24 Range/Units 18:00 18:00 18:00 RBC 1.74 L (4.10-5.20) 10*6/uL Hgb 6.3 L* D (12.0-15.0) g/dL Hct 18.7 L* (37.2-46.3) % MCV 107.5 H (80.0-97.0) fL MCH 36.2 H (27.0-32.0) pg Plt Count 80 L (140-440) 10*3/uL Immature Gran # 0.06 H (0.00-0.04) 10*3/uL Neutrophils # (Manual) 8.40 H (1.3-7.7) k/uL Lymphocytes # (Manual) 0.73 L (1.0-4.8) k/uL APTT 109.3 H* (22.0-30.0) sec Sodium 132 L (137-145) mmol/L BUN 21 H (7-17) mg/dL Glucose 109 H (74-99) mg/dL Calcium 8.0 L (8.4-10.2) mg/dL Magnesium 2.4 H (1.6-2.3) mg/dL AST 77 H (14-36) U/L Alkaline Phosphatase 560 H (38-126) U/L Total Protein 5.0 L (6.3-8.2) g/dL Albumin 2.4 L (3.5-5.0) g/dL Urine Appearance (Clear) Urine Protein (Negative) Uric Acid Crystals (None) /hpf Urine Bacteria (None) /hpf Crossmatch 12/01/24 12/02/24 Range/Units 20:16 01:06 RBC (4.10-5.20) 10*6/uL Hgb (12.0-15.0) g/dL Hct (37.2-46.3) % MCV (80.0-97.0) fL MCH (27.0-32.0) pg Plt Count (140-440) 10*3/uL Immature Gran # (0.00-0.04) 10*3/uL Neutrophils # (Manual) (1.3-7.7) k/uL Lymphocytes # (Manual) (1.0-4.8) k/uL APTT (22.0-30.0) sec Sodium (137-145) mmol/L BUN (7-17) mg/dL Glucose (74-99) mg/dL Calcium (8.4-10.2) mg/dL Magnesium (1.6-2.3) mg/dL AST (14-36) U/L Alkaline Phosphatase (38-126) U/L Total Protein (6.3-8.2) g/dL Albumin (3.5-5.0) g/dL Urine Appearance Cloudy H (Clear) Urine Protein Trace H (Negative) Uric Acid Crystals Occasional H (None) /hpf Urine Bacteria Occasional H (None) /hpf Crossmatch See Detail Chest x-ray: report reviewed US - abdomen: report reviewed Venous US: report reviewed Assessment and Plan (1) Anemia Current Visit: Yes Status: Acute Code(s): D64.9 - ANEMIA, UNSPECIFIED SNOMED Code(s): 214688330 (2) Leg swelling Current Visit: Yes Status: Acute Code(s): M79.89 - OTHER SPECIFIED SOFT TISSUE DISORDERS SNOMED Code(s): 687464729 (3) Weakness Current Visit: Yes Status: Acute Code(s): R53.1 - WEAKNESS SNOMED Code(s): 61045867 (4) History of pancreatic cancer Current Visit: No Status: Acute Priority: High Code(s): Z85.07 - PERSONAL HISTORY OF MALIGNANT NEOPLASM OF PANCREAS SNOMED Code(s): 91430510802892 Plan: Weakness, fatigue, decreased oral intake: Presented with progressing generalized weakness and fatigue and decreased oral intake. Also reporting BLE edema and low back pain with BLE pain -Symptoms have been progressive over the last 1 month -BLE dopplers negative for DVT -Will give hydration with 1L NS bolus -Gabapentin and norco continued for back and leg pain Chemo induced anemia and thrombocytopenia: -WBC 9.1, hemoglobin 6.3, platelets 80,000. 1 unit PRBCs was given -Repeat CBC today showing hemoglobin of 7.9. Plt 59,000, WBC 4.5 -Continue to monitor CBC, with supportive transfusions as needed Metastatic prostate cancer: -Oncology history as dictated in the HPI -Started Gemzar and Abraxane on 10/23/24. She completed cycle 1, day 15 on 11/13/24 with G-CSF -Treatment will be held until pt adequately recovered. My need to consider possible dose reduction/regimen adjustment -Clinic f/u upon discharge Doctor attests: I performed a history and physical examination of this patient, developed impression and plan of care. Discussed with dictator. I agree with dictators note, documented as a scribe.
[2024-12-02 20:28] LABS: Glucose,Whole Blood 163 mg/dL (70-110)
[2024-12-02] MEDS: ACETAMINOPHEN TAB 325 MG TAB PO PRN (23:00)
[2024-12-03 07:08] LABS: Glucose,Whole Blood 116 mg/dL (70-110)
[2024-12-03] MEDS: ENOXAPARIN 30 MG/0.3 ML SYRINGE SQ SCH (08:37)
[2024-12-03 08:47] LABS: ALT 27 U/L (8-44); AST 62 U/L (13-35); Albumin 2.3 g/dL (3.8-4.9); Albumin/Globulin Ratio 1.28 Ratio (1.60-3.17); Alkaline Phosphatase 510 U/L (41-126); Blood Urea Nitrogen 14.5 mg/dL (9.0-27.0); Calcium 7.6 mg/dL (8.7-10.3); Carbon Dioxide 26.7 mmol/L (21.6-31.8); Chloride 103 mmol/L (96-109); Globulin 1.8 g/dL (1.6-3.3); Glucose 117 mg/dL (70-110); Potassium 4.3 mmol/L (3.5-5.5); Sodium 136 mmol/L (135-145); Total Protein 4.1 g/dL (6.2-8.2)
[2024-12-03 09:49] LABS: Basophils # (M) 0 X 10*3/uL (0.00-0.10); Eosinophils # (M) 0.02 X 10*3/uL (0.04-0.35); HCT 23.5 % (37.2-46.3); HGB 7.6 g/dL (12.0-15.0); Immature Platelet Fraction 11.2 % (1.1-6.1); Lymphocytes # (M) 0.29 X 10*3/uL (0.90-5.00); MCHC 32.3 g/dL (32.0-37.0); MCV 102.2 FL (80.0-97.0); Macrocytosis (M) 2+ (None Seen); Metamyelocytes % 3 % (0-0); Monocytes # (M) 0.02 X 10*3/uL (0.20-1.00); Myelocytes % 1 % (0-0); NRBC Per 100 WBC 0 X 10*3/uL (0.00-0.01); Neutrophils # (M) 1.51 X 10*3/uL (1.80-7.70); Neutrophils % (M) 79 %; Nucleated Red Blood Cells 1 /100 WBCS; Platelet Count 50 X 10*3/uL (140-440); RDW 23.7 % (11.5-14.5); WBC 1.91 X 10*3/uL (4.50-10.00)
[2024-12-03 12:21] LABS: Glucose,Whole Blood 147 mg/dL (70-110)
--- NOTE | 2024-12-03 14:49 | CT ---
EXAMINATION TYPE: CT brain wo con DATE OF EXAM: 12/03/2024 COMPARISON: None CLINICAL INDICATION: Female, 74 years old with history of left facial droop; PHH, LEFT FACIAL DROOP CT DLP: 2288 mGycm Automated exposure control for dose reduction was used. There is mild hypodensity and loss of the spencer-white differentiation in the mid right frontal lobe co nsistent with an acute infarct. There is no acute intra or extra-axial hemorrhage. The ventricles, basal cisterns and sulci regressing are moderately enlarged with moderate atrophy. The posterior fossa including the brainstem, fourth ventricle and cerebellopontine are normal. Intraorbital contents appear normal and symmetric. Visualized paranasal sinuses and mastoid air cells are well aerated. Calvarium is intact. IMPRESSION: Acute infarct involving the right frontal lobe. There is no acute intra or extra-axial hemorrhage. The referring provider was notified as important finding at the time of this interpretation on 025 at 2:46 PM [facility], Workstation: [facility], 12/03/2024 2:47 PM
[2024-12-03 15:12] LABS: Glucose,Whole Blood 218 mg/dL (70-110)
--- NOTE | 2024-12-03 16:27 | CT ---
EXAMINATION TYPE: CODE STROKE: CTA head neck DATE OF EXAM: 12/03/2024 COMPARISON: None CLINICAL INDICATION: Female, 74 years old with history of acute CVA; PHH, Code stroke. TECHNIQUE: CTA scan of the head and neck is performed with IV Contrast, patient injected with 65 ml mL of Isovue 370, axial images are obtained, coronal and sagittal reformatted images are reviewed. 3D reconstructed images are created on an independent workstation and reviewed. CT DLP: 264.[address] CTDI: mGy Automated exposure control for dose reduction was used. NASCET criteria was used in interpretation of this exam? FINDINGS: The brachiocephalic origins are widely patent and no significant stenosis. There is no significant stenosis of the common or internal carotid arteries within the neck. There is no stenosis of the vertebral arteries. Intracranially, there is no stenosis, segmental occlusion, sizable aneurysm sac or vascular malformat ion. 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 IMPRESSION:. No significant occlusive disease within the head or neck. There is no sizable aneurysm s ac or vascular malformation. NASCET criteria was used in interpretation of this exam? [facility], , 12/03/2024 4:25 PM
--- NOTE | 2024-12-03 16:35 | CA ---
Transthoracic Echo Report Name: Kathi Valenzuela Age: 74 Gender: F : 1950 Exam Date: 12/03/2024 15:26 Exam Location: [facility] Ht (in): 63 Wt (lb): 135 Ordering Physician: Quinten Alas MD Attending/Referring Phys: Actuarial Manager Ivonne Rutherford RDCS Procedure CPT: Indications: Slurred speech, CVA Cardiac Hx: Technical Quality: Fair Contrast 1: Agitated Saline Total Dose (mL): 10 Contrast 2: Total Dose (mL): MEASUREMENTS (Male / Female) Normal Values 2D ECHO LV Diastolic Diameter PLAX 3.7 cm 4.2 - 5.9 / 3.9 - 5.3 cm LV Systolic Diameter PLAX 2.2 cm IVS Diastolic Thickness 1.1 cm 0.6 - 1.0 / 0.6 - 0.9 cm LVPW Diastolic Thickness 1.1 cm 0.6 - 1.0 / 0.6 - 0.9 cm LV Relative Wall Thickness 0.6 RV Internal Dim ED PLAX 2.6 cm LVOT Diameter 2.0 cm Aortic Root Diameter 3.5 cm LV Diastolic Volume MOD 4C 60.7 cm??? LV Systolic Volume MOD 4C 15.3 cm??? LV Ejection Fraction MOD 4C 74.7 % LV Cardiac Index MOD 4C 2541.3 cm???/min???m??? LV Diastolic Length 4C 7.2 cm LV Systolic Length 4C 4.9 cm M-MODE Aortic Root Diameter MM 3.5 cm LA Systolic Diameter MM 2.7 cm LA Ao Ratio MM 0.8 AV Cusp Separation MM 1.7 cm DOPPLER Mitral E Point Velocity 57.8 cm/s Mitral A Point Velocity 89.6 cm/s Mitral E to A Ratio 0.6 MV Deceleration Time 323.5 ms TR Peak Velocity 257.5 cm/s TR Peak Gradient 26.5 mmHg Right Ventricular Systolic Press 31.6 mmHg FINDINGS Left Ventricle Left ventricular ejection fraction is estimated at 55-60%. Normal left ventricular systolic function with no obvious regional wall motion abnormalities. Left ventricular cavity size normal. Right Ventricle Normal right ventricular size and function. Right ventricular systolic pressure within normal limits. Right Atrium Normal right atrial size. Positive agitated saline bubble study for right to left shunt. Left Atrium Normal left atrial size. Mitral Valve Structurally normal mitral valve. Moderate mitral regurgitation. No mitral stenosis.mitral annular calcification. Aortic Valve Trileaflet aortic valve. No aortic stenosis. No aortic regurgitation. Diffuse thickening (sclerosis) of the aortic valve cusps without reduced excursion.aortic valve sclerosis. Tricuspid Valve Structurally normal tricuspid valve. Mild tricuspid regurgitation. No tricuspid stenosis. Pulmonic Valve Structurally normal pulmonic valve. Trace pulmonic regurgitation. No pulmonic stenosis. Pericardium No pericardial effusion. Right and left pleural effusion. Aorta Normal size aortic root and proximal ascending aorta. CONCLUSIONS 1. Normal left ventricular size and systolic function 2. Evidence of shunting across the interatrial septum with contrast bubble study 3. Moderate mitral regurgitation with mild tricuspid regurgitation Previewed by: Dr. José Miguel Osuna MD (Electronically Signed) Final Date: 03 December 2024 16:34
[2024-12-03] MEDS: ASPIRIN 325 MG TAB PO STA (16:51)
--- NOTE | 2024-12-03 16:53 | P.PN ---
Subjective Progress Note Date: 12/03/24 74-year-old pleasant female came in complaints of generalized weakness and mental fogginess patient received chemotherapy on 18 of this month. Patient does have bilateral lower extremity swelling does take Lasix at home patient is mildly hyponatremic. Patient was also found to have low hemoglobin of around 6.5 received 180 of PRBC transfusion patient feels slightly better but still quite weak patient has an elevated MCV. Patient does have history of pancreatic cancer on chemotherapy as mentioned above patient had a liver ultrasound which showed a possible metastatic lesion in the liver and some gallbladder wall thickening although patient denied any significant abdominal pain. Chest x-ray showed mild bilateral pleural effusions patient denied any history of congestive heart failure. Venous Doppler left lower extremity did not show any DVT. 12/03/2024 Patient seen and examined at bedside. Patient son at bedside who states he feels his mother has had some ongoing slurred speech and overall lethargy and confusion that he was concerned with. He was unsure but feels it may have began Saturday. Upon speaking with speech language pathology it was noted that she had some left-sided facial drooping. CT brain was ordered and found to have right- sided frontal lobe ischemic stroke. Code stroke was activated. Neurology was consulted. Aspirin and statin given. Ordered echocardiogram with bubble study, CTA head and neck. Patient subsequently transferred to [facility]. Labs today reveal WBC 1.91, hemoglobin 7.6, platelets 50, glucose 117, AST 62, ALP 510. TSH is WNL. REVIEW OF SYSTEMS: All other systems are negative except those mentioned in the HPI PHYSICAL EXAMINATION: Vitals reviewed GENERAL: The patient is alert and oriented x3, not in any acute distress. Appears to be a bit malnourished thin built. CARDIOVASCULAR: S1 and S2 present. No murmurs, rubs, or gallops. PULMONARY: Chest is clear to auscultation, no wheezing or crackles. ABDOMEN: Soft, nontender, nondistended, normoactive bowel sounds. No palpable organomegaly. MUSCULOSKELETAL: No joint swelling or deformity. EXTREMITIES: No cyanosis, clubbing, or pedal edema. NEUROLOGICAL: 5/5 strength in upper and lower extremities. Left-sided facial droop, otherwise unremarkable cranial nerve exam. SKIN: No rashes. Assessment and plan Acute ischemic stroke involving right frontal lobe without hemorrhage. Code stroke initiated. Neurology consulted. CT brain reviewed. Echocardiogram with bubble study with evidence of shunting across interatrial septum. CTA head and neck with no significant occlusive disease within head or neck, no sizable aneurysm sac or vascular malformation. aspirin 325 mg once, aspirin daily, atorvastatin 40 mg statin daily. Ordered TSH, HbA1c, lipid panel. PT OT and speech are consulted. -Generalized weakness tiredness secondary to pancreatic cancer and anemia patient received PRBC transfusion there is no evidence of acute GI bleed or any other bleed at this time patient has an elevated MCV of hematology is following the patient further workup elevated up to hematology. - Peripheral edema secondary to malnutrition, will use Lasix on as-needed basis and compression socks since patient has mild bilateral pleural effusions I will give her a dose of Lasix - Possible hypervolemic hyponatremia. - Moderate protein calorie malnutrition secondary to cancer will encourage high- protein diet and probably Ensure - Pancreatic cancer with metastasis oncology was consulted - Type 2 diabetes mellitus patient will be started on sliding scale insulin hold off on glipizide - Diabetic peripheral neuropathy patient will be resumed on gabapentin DVT prophylaxis: Low-dose Lovenox Dr. Robert seen patient with resident, present during exam, and agreed with findings. Objective - Vital Signs Vital signs: Vital Signs Temp 97.8 F 12/03/24 07:55 Pulse 71 12/03/24 08:45 Resp 14 12/03/24 08:45 BP 92/52 12/03/24 07:55 Pulse Ox 95 12/03/24 07:55 FiO2 Intake & Output 12/02/24 12/03/24 12/03/24 18:59 06:59 18:59 Intake Total 1080 Output Total 1100 250 Balance -20 -250 Weight 61.235 kg Intake: Oral 1080 Output: Urine 1100 250 Other: Voiding Method Diaper Bedpan Incontinent Diaper Indwelling Catheter # Bowel Movements 1 - Labs CBC & Chem 7: 12/03/24 03:15 12/03/24 03:15 Labs: Abnormal Lab Results - Last 24 Hours (Table) 12/02/24 12/02/24 12/02/24 Range/Units 12:09 17:12 20:25 RBC 2.41 L (4.10-5.20) 10*6/uL Hgb 7.9 L D (12.0-15.0) g/dL Hct 24.3 L (37.2-46.3) % MCV 100.8 H D (80.0-97.0) fL MCH 32.8 H (27.0-32.0) pg RDW 23.9 H (11.5-14.5) % Plt Count 59 L (140-440) 10*3/uL MPV 12.3 H (9.5-12.2) fL Lymphocytes # 0.27 L (0.90-5.00) 10*3/uL Monocytes # 0.02 L (0.20-1.00) 10*3/uL Eosinophils # 0.00 L (0.04-0.35) 10*3/uL Immature Plt Fraction 7.9 H (1.1-6.1) % Creatinine (0.6-1.5) mg/dL BUN/Creatinine Ratio (12.00-20.00) Ratio Glucose (70-110) mg/dL POC Glucose (mg/dL) 136 H 163 H (70-110) mg/dL Calcium (8.7-10.3) mg/dL AST (13-35) U/L Alkaline Phosphatase (41-126) U/L Total Protein (6.2-8.2) g/dL Albumin (3.8-4.9) g/dL Albumin/Globulin Ratio (1.60-3.17) Ratio 12/03/25 04// Range/Units 03:15 07:06 RBC (4.10-5.20) 10*6/uL Hgb (12.0-15.0) g/dL Hct (37.2-46.3) % MCV (80.0-97.0) fL MCH (27.0-32.0) pg RDW (11.5-14.5) % Plt Count (140-440) 10*3/uL MPV (9.5-12.2) fL Lymphocytes # (0.90-5.00) 10*3/uL Monocytes # (0.20-1.00) 10*3/uL Eosinophils # (0.04-0.35) 10*3/uL Immature Plt Fraction (1.1-6.1) % Creatinine 0.5 L (0.6-1.5) mg/dL BUN/Creatinine Ratio 29.00 H (12.00-20.00) Ratio Glucose 117 H (70-110) mg/dL POC Glucose (mg/dL) 116 H (70-110) mg/dL Calcium 7.6 L (8.7-10.3) mg/dL AST 62 H (13-35) U/L Alkaline Phosphatase 510 H (41-126) U/L Total Protein 4.1 L (6.2-8.2) g/dL Albumin 2.3 L (3.8-4.9) g/dL Albumin/Globulin Ratio 1.28 L (1.60-3.17) Ratio
[2024-12-03] MEDS: ATORVASTATIN 40 MG TAB PO STA (16:59)
[2024-12-03] MEDS: SODIUM CHLORIDE 0.9% 1,000 ML IV SCH (17:00)
--- NOTE | 2024-12-03 17:07 | P.PN ---
Subjective Progress Note Date: 12/03/24 No acute events overnight. Pt denies pain, n/v/d. Reports today she developed a mild cough with clear yellowish sputum. Pt afebrile. She has worked with PT and is able to ambulate with walker. Objective - Vital Signs Vital signs: Vital Signs Temp 97.8 F 12/03/24 07:55 Pulse 71 12/03/24 08:45 Resp 14 12/03/24 08:45 BP 92/52 12/03/24 07:55 Pulse Ox 95 12/03/24 07:55 FiO2 Intake & Output 12/02/24 12/03/24 12/03/24 18:59 06:59 18:59 Intake Total 1080 Output Total 1100 250 Balance -20 -250 Weight 61.235 kg Intake: Oral 1080 Output: Urine 1100 250 Other: Voiding Method Diaper Bedpan Incontinent Diaper Indwelling Catheter # Bowel Movements 1 - Constitutional General appearance: Present: average body habitus, no acute distress - EENT Eyes: Present: anicteric sclerae, EOMI ENT: Present: hearing grossly normal - Respiratory Details: breathing is even and unlabored - Cardiovascular Details: skin warm and dry - Gastrointestinal General gastrointestinal: Present: soft. Absent: tenderness - Integumentary Integumentary: Absent: cyanotic, jaundiced - Musculoskeletal Musculoskeletal: Present: generalized weakness - Psychiatric Psychiatric: Present: A&O x's 3 - Labs CBC & Chem 7: 12/03/24 03:15 12/03/24 03:15 Labs: Abnormal Lab Results - Last 24 Hours (Table) 12/02/24 12/02/24 12/03/24 Range/Units 17:12 20:25 03:15 WBC 1.91 L (4.50-10.00) X 10*3/uL RBC 2.30 L (4.10-5.20) X 10*6/uL Hgb 7.6 L (12.0-15.0) g/dL Hct 23.5 L (37.2-46.3) % MCV 102.2 H (80.0-97.0) FL MCH 33.0 H (27.0-32.0) pg RDW 23.7 H (11.5-14.5) % Plt Count 50 L (140-440) X 10*3/uL MPV 13.0 H (9.5-12.2) FL Neutrophils # (Manual) 1.51 L (1.80-7.70) X 10*3/uL Lymphocytes # (Manual) 0.29 L (0.90-5.00) X 10*3/uL Monocytes # (Manual) 0.02 L (0.20-1.00) X 10*3/uL Eosinophils # (Manual) 0.02 L (0.04-0.35) X 10*3/uL Immature Plt Fraction 11.2 H (1.1-6.1) % Macrocytosis (manual) 2+ A (None Seen) Creatinine (0.6-1.5) mg/dL BUN/Creatinine Ratio (12.00-20.00) Ratio Glucose (70-110) mg/dL POC Glucose (mg/dL) 136 H 163 H (70-110) mg/dL Calcium (8.7-10.3) mg/dL AST (13-35) U/L Alkaline Phosphatase (41-126) U/L Total Protein (6.2-8.2) g/dL Albumin (3.8-4.9) g/dL Albumin/Globulin Ratio (1.60-3.17) Ratio 12/03/24 12/03/24 12/03/24 Range/Units 03:15 07:06 12:17 WBC (4.50-10.00) X 10*3/uL RBC (4.10-5.20) X 10*6/uL Hgb (12.0-15.0) g/dL Hct (37.2-46.3) % MCV (80.0-97.0) FL MCH (27.0-32.0) pg RDW (11.5-14.5) % Plt Count (140-440) X 10*3/uL MPV (9.5-12.2) FL Neutrophils # (Manual) (1.80-7.70) X 10*3/uL Lymphocytes # (Manual) (0.90-5.00) X 10*3/uL Monocytes # (Manual) (0.20-1.00) X 10*3/uL Eosinophils # (Manual) (0.04-0.35) X 10*3/uL Immature Plt Fraction (1.1-6.1) % Macrocytosis (manual) (None Seen) Creatinine 0.5 L (0.6-1.5) mg/dL BUN/Creatinine Ratio 29.00 H (12.00-20.00) Ratio Glucose 117 H (70-110) mg/dL POC Glucose (mg/dL) 116 H 147 H (70-110) mg/dL Calcium 7.6 L (8.7-10.3) mg/dL AST 62 H (13-35) U/L Alkaline Phosphatase 510 H (41-126) U/L Total Protein 4.1 L (6.2-8.2) g/dL Albumin 2.3 L (3.8-4.9) g/dL Albumin/Globulin Ratio 1.28 L (1.60-3.17) Ratio Assessment and Plan (1) Anemia Current Visit: Yes Status: Acute Code(s): D64.9 - ANEMIA, UNSPECIFIED SNOMED Code(s): 033866035 (2) Leg swelling Current Visit: Yes Status: Acute Code(s): M79.89 - OTHER SPECIFIED SOFT TISSUE DISORDERS SNOMED Code(s): 928306100 (3) Weakness Current Visit: Yes Status: Acute Code(s): R53.1 - WEAKNESS SNOMED Code(s): 74700994 (4) History of pancreatic cancer Current Visit: No Status: Acute Priority: High Code(s): Z85.07 - PERSONAL HISTORY OF MALIGNANT NEOPLASM OF PANCREAS SNOMED Code(s): 86538726241280 Plan: Weakness, fatigue, decreased oral intake: Presented with progressing generalized weakness and fatigue and decreased oral intake. Also reporting BLE edema and low back pain with BLE pain -Symptoms have been progressive over the last 1 month -BLE dopplers negative for DVT -Continue IV hydration -Gabapentin and norco continued for back and leg pain -PT consulted -Will place referral for home health care Chemo induced anemia and thrombocytopenia: -WBC 9.1, hemoglobin 6.3, platelets 80,000. 1 unit PRBCs was given -Repeat CBC today showing hemoglobin of 7.6. Plt 50,000, WBC 1.91, ANC 1.51 -Continue to monitor CBC, with supportive transfusions as needed Metastatic prostate cancer: -Oncology history as dictated in the HPI -Started Gemzar and Abraxane on 10/23/24. She completed cycle 1, day 15 on with G-CSF -Treatment will be held until pt adequately recovered. My need to consider possible dose reduction/regimen adjustment -Clinic f/u upon discharge
[2024-12-03 17:08] LABS: Glucose,Whole Blood 179 mg/dL (70-110)
[2024-12-03 19:57] LABS: Glucose,Whole Blood 126 mg/dL (70-110)
[2024-12-04 06:03] LABS: Glucose,Whole Blood 125 mg/dL (70-110)
[2024-12-04 06:39] LABS: HCT 22.7 % (37.2-46.3); HGB 7.4 g/dL (12.0-15.0); MCH 33.5 pg (27.0-32.0); MCHC 32.6 g/dL (32.0-37.0); MCV 102.7 fL (80.0-97.0); Mean Platelet Volume 11.7 fL (9.5-12.2); RBC 2.21 10*6/uL (4.10-5.20); RDW 21.8 % (11.5-14.5); WBC 2.05 10*3/uL (4.50-10.00)
[2024-12-04 06:50] LABS: ALT 24 U/L (4-34); AST 50 U/L (14-36); African American GFR (CKD) >90 (>60 ml/min/1.73 sqM); Alkaline Phosphatase 474 U/L (38-126); Anion Gap 2 mmol/L; Blood Urea Nitrogen 14 mg/dL (7-17); Calcium 7.4 mg/dL (8.4-10.2); Carbon Dioxide 29 mmol/L (22-30); Chloride 103 mmol/L (98-107); Glucose 123 mg/dL (74-99); Non-African American GFR(CKD) >90 (>60 ml/min/1.73 sqM); Potassium 3.9 mmol/L (3.5-5.1); Sodium 134 mmol/L (137-145); Total Bilirubin 1.5 mg/dL (0.2-1.3); Total Protein 4.2 g/dL (6.3-8.2)
[2024-12-04 08:01] LABS: Lymphocytes # (M) 0.39 k/uL (1.0-4.8); Monocytes # (M) 0.08 k/uL (0-1.0); Neutrophils # (M) 1.58 k/uL (1.3-7.7); Neutrophils % (M) 77 %; Nucleated Red Blood Cells 0 /100 WBC (0-0); Total Cells Counted 100
[2024-12-04 08:06] LABS: Platelet Count 38 10*3/uL (140-440)
[2024-12-04 11:16] LABS: Chol/HDL Ratio 4.12 Ratio; LDL Cholesterol,Calculated 62.8 mg/dL (0.0-131.0)
[2024-12-04 11:55] LABS: Glucose,Whole Blood 188 mg/dL (70-110)
--- NOTE | 2024-12-04 12:53 | P.CNNES ---
History of Present Illness Consult date: 12/04/24 Requesting physician: Beverley Oliva Reason for Consult: code stroke History of Present Illness: This is a 74-year-old woman with history of pancreatic with mets to the liver on chemotherapy who presents the emergency department because of generalized weakness. Patient's son is at bedside who gives most of the history. As well as obtain history from the patient's nurse that had the patient yesterday. The son he states that the patient has been having weakness over bilateral lower extremity over the last 10 days and that is progressively getting worse. It seems that she has significant edema of the lower extremity. As a result of her lower extremity weakness she is unable to ambulate which she was ambulating prior to that. Son states that patient does not have any history of stroke. Yesterday while she was on 5 N. there is complained that she is still weak as a result a code stroke was activity and she had CT of the head which showed acute infarct right frontal lobe. I was notified per resident, yesterday that patient had left facial droop and last normal was this Saturday. They spoke with Dr. Oliva, stroke interventional and no intervention and no IV TNK since outside window and risk outweigh the benefit. The son today, stated her left facial droop is old and he looked at old picture and she had that for years. Seems the patient last chemotherapy was this past Saturday. She has low platelets as a result. She is not on any antiplatelet. She has a history of pulmonary embolism about 2 years ago and she was on Eliquis but was stopped about a month ago because of low platelet. The patient feels she is more awake today compared to yesterday and she seems more responsive and overall doing better. He feels her swelling in her lower extremities is better compared to her initial presentation Some of the workup during this hospital visit consisted of: During this hospital visit the patient has anemia as low as 6.3 and currently 7.4. The platelets yesterday was 50,000 and currently is 38,000. Reviewed the rest of the lab workup CT of the head is reported as acute infarct involving the right frontal. Personally feel the hypodensity over the right frontal region seems acute to subacute. Next CT angiography of the head and neck is reported significant occlusive disease within the head or neck. There is no sizable aneurysm or vascular malformation. Echo is reported as normal left ventricular size and systolic function. Evidence of shunting across intra-atrial septum with contrast bubble. Moderate mitral regurgitation with mild tricuspid regurgitation. Review of Systems As per HPI. Past Medical History Past Medical History: Cancer, Diabetes Mellitus Additional Past Medical History / Comment(s): PANCREATIC. History of Any Multi-Drug Resistant Organisms: None Reported Past Surgical History: No Surgical Hx Reported Additional Past Surgical History / Comment(s): bile duct stent. Past Anesthesia/Blood Transfusion Reactions: No Reported Reaction Past Psychological History: No Psychological Hx Reported Smoking Status: Former smoker Medications and Allergies Home Medications Medication Instructions Recorded Confirmed Type Gabapentin [Neurontin] 600 mg PO TID 05/15/23 12/02/24 History Ondansetron [Zofran] 4 mg PO Q8HR PRN 09/23/23 12/02/24 History glipiZIDE 5 mg PO AC-BID PRN 09/23/23 12/02/24 History HYDROcodone/APAP 5-325MG [[place] 2 tab PO TID 10/23/24 12/02/24 History 5-325] Furosemide [Lasix] 20 mg PO DAILY PRN 11/13/24 12/02/24 History Potassium Chloride 10 meq PO BID PRN 11/13/24 12/02/24 History Allergies Allergy/AdvReac Type Severity Reaction Status Date / Time No Known Allergies Allergy Verified 12/02/24 07:13 Physical Examination - Vital Signs Vital Signs: Vital Signs Temp Pulse Pulse Resp BP Pulse Ox 12/04/24 08:00 71 17 12/04/24 07:40 98.2 F 71 17 121/81 93 L 12/04/24 04:44 80 18 125/80 92 L 12/03/24 23:17 75 18 101/66 91 L 12/03/24 20:00 97.7 F 77 18 109/74 93 L 12/03/24 18:43 94 L 12/03/24 18:42 94 L 12/03/24 16:25 98.5 F 77 15 112/74 90 L 12/03/24 15:01 98.2 F 84 18 106/70 92 L 12/03/24 13:13 97.8 F 81 14 93/67 93 L Intake and Output 12/03/24 12/04/24 12/04/24 22:59 06:59 14:59 Intake Total 118 760 Balance 118 760 Intake: Intake, IV Titration 280 Amount Sodium Chloride 0.9% 1, 280 000 ml @ 70 mls/hr IV . [id number] [facility] Rx#:[id number] Oral 118 480 Other: Voiding Method Bedside Commode Bedside Commode Bedside Commode Diaper Diaper Diaper External Catheter External Catheter External Catheter # Voids 1 1 # Bowel Movements 1 1 1 Weight 64.5 kg GENERAL: The patient is lying in bed and is not in acute distress. Patient appears lethargic NEUROLOGICAL: Higher mental function: The patient is slightly drowsy but is awakeable to voice,oriented to self, place and time. Patient is following commands. No aphasia and no neglect. Cranial nerves: The pupils are round, equal and reactive to light and accommodation. Visual blackburn are full to confrontation throughout. Extraocular movement is intact no nystagmus is noted. Facial sensation is normal to touch throughout. The facial strength is mild left facial weakness. Hearing is mildly to moderately decreased bilaterally to hand rub. Tongue is midline and moved [id number] without any difficulty. No dysarthria is noted. Shoulder shrug is normal bilaterally. Motor: The strength is left arm extension is 4+, otherwise rest of left upper and entire right upper extremity is 5/5. Lower extremity proximally is 2 bilaterally. Ankles are 3 bilaterally. Mild decrease tone in lowers. Cerebellum: Normal finger to nose bilaterally. Sensation: Sensation is normal to touch throughout. Plantars are mute bilaterally. Results - Laboratory Findings CBC and BMP: 12/04/24 06:15 12/04/24 06:15 Abnormal Lab Findings: Abnormal Labs 12/01/24 12/01/24 12/01/24 18:00 18:00 18:00 WBC RBC 1.74 L Hgb 6.3 L* D Hct 18.7 L* MCV 107.5 H MCH 36.2 H RDW Plt Count 80 L MPV Immature Gran # 0.06 H Neutrophils # (Manual) 8.40 H Lymphocytes # Lymphocytes # (Manual) 0.73 L Monocytes # Monocytes # (Manual) Eosinophils # Eosinophils # (Manual) Immature Plt Fraction Macrocytosis (manual) APTT 109.3 H* Sodium 132 L BUN 21 H Creatinine BUN/Creatinine Ratio Glucose 109 H POC Glucose (mg/dL) Calcium 8.0 L Magnesium 2.4 H Total Bilirubin AST 77 H Alkaline Phosphatase 560 H Total Protein 5.0 L Albumin 2.4 L Albumin/Globulin Ratio HDL Cholesterol Urine Appearance Urine Protein Uric Acid Crystals Urine Bacteria Crossmatch 12/01/24 12/02/24 12/02/24 20:16 01:06 12:09 WBC RBC 2.41 L Hgb 7.9 L D Hct 24.3 L MCV 100.8 H D MCH 32.8 H RDW 23.9 H Plt Count 59 L MPV 12.3 H Immature Gran # Neutrophils # (Manual) Lymphocytes # 0.27 L Lymphocytes # (Manual) Monocytes # 0.02 L Monocytes # (Manual) Eosinophils # 0.00 L Eosinophils # (Manual) Immature Plt Fraction 7.9 H Macrocytosis (manual) APTT Sodium BUN Creatinine BUN/Creatinine Ratio Glucose POC Glucose (mg/dL) Calcium Magnesium Total Bilirubin AST Alkaline Phosphatase Total Protein Albumin Albumin/Globulin Ratio HDL Cholesterol Urine Appearance Cloudy H Urine Protein Trace H Uric Acid Crystals Occasional H Urine Bacteria Occasional H Crossmatch See Detail 12/02/24 12/02/24 12/03/24 17:12 20:25 03:15 WBC 1.91 L RBC 2.30 L Hgb 7.6 L Hct 23.5 L MCV 102.2 H MCH 33.0 H RDW 23.7 H Plt Count 50 L MPV 13.0 H Immature Gran # Neutrophils # (Manual) 1.51 L Lymphocytes # Lymphocytes # (Manual) 0.29 L Monocytes # Monocytes # (Manual) 0.02 L Eosinophils # Eosinophils # (Manual) 0.02 L Immature Plt Fraction 11.2 H Macrocytosis (manual) 2+ A APTT Sodium BUN Creatinine BUN/Creatinine Ratio Glucose POC Glucose (mg/dL) 136 H 163 H Calcium Magnesium Total Bilirubin AST Alkaline Phosphatase Total Protein Albumin Albumin/Globulin Ratio HDL Cholesterol Urine Appearance Urine Protein Uric Acid Crystals Urine Bacteria Crossmatch 12/03/24 12/03/24 12/03/24 03:15 07:06 12:17 WBC RBC Hgb Hct MCV MCH RDW Plt Count MPV Immature Gran # Neutrophils # (Manual) Lymphocytes # Lymphocytes # (Manual) Monocytes # Monocytes # (Manual) Eosinophils # Eosinophils # (Manual) Immature Plt Fraction Macrocytosis (manual) APTT Sodium BUN Creatinine 0.5 L BUN/Creatinine Ratio 29.00 H Glucose 117 H POC Glucose (mg/dL) 116 H 147 H Calcium 7.6 L Magnesium Total Bilirubin AST 62 H Alkaline Phosphatase 510 H Total Protein 4.1 L Albumin 2.3 L Albumin/Globulin Ratio 1.28 L HDL Cholesterol Urine Appearance Urine Protein Uric Acid Crystals Urine Bacteria Crossmatch 12/03/24 12/03/24 12/03/24 15:10 17:05 19:56 WBC RBC Hgb Hct MCV MCH RDW Plt Count MPV Immature Gran # Neutrophils # (Manual) Lymphocytes # Lymphocytes # (Manual) Monocytes # Monocytes # (Manual) Eosinophils # Eosinophils # (Manual) Immature Plt Fraction Macrocytosis (manual) APTT Sodium BUN Creatinine BUN/Creatinine Ratio Glucose POC Glucose (mg/dL) 218 H 179 H 126 H Calcium Magnesium Total Bilirubin AST Alkaline Phosphatase Total Protein Albumin Albumin/Globulin Ratio HDL Cholesterol Urine Appearance Urine Protein Uric Acid Crystals Urine Bacteria Crossmatch 12/04/24 12/04/24 12/04/24 06:01 06:15 06:15 WBC 2.05 L RBC 2.21 L Hgb 7.4 L Hct 22.7 L MCV 102.7 H MCH 33.5 H RDW Plt Count 38 L MPV Immature Gran # 0.06 H Neutrophils # (Manual) Lymphocytes # Lymphocytes # (Manual) 0.39 L Monocytes # Monocytes # (Manual) Eosinophils # Eosinophils # (Manual) Immature Plt Fraction 7.0 H Macrocytosis (manual) APTT Sodium 134 L BUN Creatinine BUN/Creatinine Ratio Glucose 123 H POC Glucose (mg/dL) 125 H Calcium 7.4 L Magnesium Total Bilirubin 1.5 H AST 50 H Alkaline Phosphatase 474 H Total Protein 4.2 L Albumin 2.0 L Albumin/Globulin Ratio HDL Cholesterol 29.40 L Urine Appearance Urine Protein Uric Acid Crystals Urine Bacteria Crossmatch 12/04/24 11:45 WBC RBC Hgb Hct MCV MCH RDW Plt Count MPV Immature Gran # Neutrophils # (Manual) Lymphocytes # Lymphocytes # (Manual) Monocytes # Monocytes # (Manual) Eosinophils # Eosinophils # (Manual) Immature Plt Fraction Macrocytosis (manual) APTT Sodium BUN Creatinine BUN/Creatinine Ratio Glucose POC Glucose (mg/dL) 188 H Calcium Magnesium Total Bilirubin AST Alkaline Phosphatase Total Protein Albumin Albumin/Globulin Ratio HDL Cholesterol Urine Appearance Urine Protein Uric Acid Crystals Urine Bacteria Crossmatch Assessment and Plan Assessment: This is a 74-year-old woman with history of pancreatic cancer with mets to the liver on chemotherapy, thrombocytopenia, history of pulmonary embolism on Eliquis but that is held because of the thrombocytopenia about a month ago who presents because of generalized weakness especially lower extremity weakness with edema. Yesterday code stroke since lethargic and it was felt she had left facial weakness possibly since this Saturday and showed acute right frontal stroke but per son left facial weakness is old. Acute to subacute right frontal stroke. No IV or thrombolytics since outside the window and the risk outweigh the benefit. Etiology of the stroke is due to her history of cancer, age 6. Significant thrombocytopenia Positive PFO on the 2D echo History of pancreatic cancer with mets to the liver on chemotherapy Bilateral lower extremity edema with significant weakness. History of pulmonary embolism not on anticoagulation because of her thromboc ytopenia for the past 1 month Plan: Recommend avoiding antiplatelets because of the significant thrombocytopenia and the risk outweigh the benefit. Once the platelet is improved then consider only aspirin 81 mg daily from a neurology perspective. Will defer the use of anticoagulation to the primary team. MRI of the brain is ordered but unable to obtain because patient has a port that is not MRI compatible therefore we will get a repeat CT of the head tomorrow Recommend Venous duplex of the lower extremities. Patient was started on Lipitor 40 mg daily. If there is any contraindication of the use of statin specially with history of metastasis to the liver then rec ommend avoiding that I will defer that to the primary team Regarding the PFO recommend cardiology consultation Continue neurochecks Cardiac monitoring Oncology is consulted PT OT and [employer] are consulted For DVT prophylaxis use SCDs and avoid anticoagulation because of her significant thrombocytopenia Plan discussed with the patient, her son was at bedside. Thank you for the consultation Time with Patient: Greater than 30
--- NOTE | 2024-12-04 13:04 | P.PN ---
Subjective Progress Note Date: 12/04/24 74-year-old pleasant female came in complaints of generalized weakness and mental fogginess patient received chemotherapy on 18 of this month. Patient does have bilateral lower extremity swelling does take Lasix at home patient is mildly hyponatremic. Patient was also found to have low hemoglobin of around 6.5 received 180 of pRBC transfusion patient feels slightly better but still quite weak patient has an elevated MCV. Patient does have history of pancreatic cancer on chemotherapy as mentioned above patient had a liver ultrasound which showed a possible metastatic lesion in the liver and some gallbladder wall thickening although patient denied any significant abdominal pain. Chest x-ray showed mild bilateral pleural effusions patient denied any history of congestive heart failure. Venous Doppler left lower extremity did not show any DVT. 12/03/2024 Patient seen and examined at bedside. Patient son at bedside who states he feels his mother has had some ongoing slurred speech and overall lethargy and confusion that he was concerned with. He was unsure but feels it may have began Saturday. Upon speaking with speech language pathology it was noted that she had some left-sided facial drooping. CT brain was ordered and found to have right- sided frontal lobe ischemic stroke. Code stroke was activated. Neurology was consulted. Aspirin and statin given. Ordered echocardiogram with bubble study, CTA head and neck. Patient subsequently transferred to [facility]. Labs today reveal WBC 1.91, hemoglobin 7.6, platelets 50, glucose 117, AST 62, ALP 510. TSH is WNL. 12/04/2024 Patient seen and examined at bedside. Discussed with patient and son risks and benefits of CODE STATUS. They showed understanding and consider options. Patient remains lethargic. Heme-onc following patient. WBC 2.0, hemoglobin 7.4, MCV 102.7, platelets 38, sodium 134, potassium 3.9, 125, bilirubin 1.5, AST 50, ALP 474, lipid panel is WNL. REVIEW OF SYSTEMS: All other systems are negative except those mentioned in the HPI PHYSICAL EXAMINATION: Vitals reviewed GENERAL: The patient is alert and oriented x3, not in any acute distress. Appears to be a bit malnourished thin built. CARDIOVASCULAR: S1 and S2 present. No murmurs, rubs, or gallops. PULMONARY: Chest is clear to auscultation, no wheezing or crackles. ABDOMEN: Soft, nontender, nondistended, normoactive bowel sounds. No palpable organomegaly. MUSCULOSKELETAL: No joint swelling or deformity. EXTREMITIES: No cyanosis, clubbing, or pedal edema. NEUROLOGICAL: 5/5 strength in upper and lower extremities. Left-sided facial droop, otherwise unremarkable cranial nerve exam. SKIN: No rashes. Assessment and plan Acute ischemic stroke involving right frontal lobe without hemorrhage. Code stroke initiated. Neurology consulted. CT brain reviewed. Echocardiogram with bubble study with evidence of shunting across interatrial septum. CTA head and neck with no significant occlusive disease within head or neck, no sizable aneurysm sac or vascular malformation. atorvastatin 40 mg statin daily. PT OT and speech are consulted. -Generalized weakness tiredness secondary to pancreatic cancer and anemia patient received PRBC transfusion there is no evidence of acute GI bleed or any other bleed at this time patient has an elevated MCV of hematology is following the patient further workup elevated up to hematology. - Peripheral edema secondary to malnutrition, will use Lasix on as-needed basis and compression socks since patient has mild bilateral pleural effusions I will give her a dose of Lasix - Possible hypervolemic hyponatremia. - Moderate protein calorie malnutrition secondary to cancer will encourage high- protein diet and probably Ensure - Pancreatic cancer with metastasis oncology was following patient. Hospice c onsult may be appropriate. - Type 2 diabetes mellitus patient will be started on sliding scale insulin hold off on glipizide - Diabetic peripheral neuropathy patient will be resumed on gabapentin DVT prophylaxis: SCDs Dr. Robert seen patient with resident, present during exam, and agreed with teo laird. Objective - Vital Signs Vital signs: Vital Signs Temp 98.2 F 12/04/24 07:40 Pulse 71 12/04/24 07:40 Resp 17 12/04/24 07:40 BP 121/81 12/04/24 07:40 Pulse Ox 93 L 12/04/24 07:40 FiO2 Intake & Output 12/03/24 12/04/24 12/04/24 18:59 06:59 18:59 Intake Total 118 Balance 118 Weight 61.235 kg 64.5 kg Intake: Oral 118 Other: Voiding Method Bedpan Bedside Commode Diaper Diaper External Catheter # Voids 1 # Bowel Movements 1 1 - Labs CBC & Chem 7: 12/04/24 06:15 12/04/24 06:15 Labs: Abnormal Lab Results - Last 24 Hours (Table) 12/03/24 12/03/24 12/03/24 Range/Units 03:15 03:15 12:17 WBC 1.91 L (4.50-10.00) X 10*3/uL RBC 2.30 L (4.10-5.20) X 10*6/uL Hgb 7.6 L (12.0-15.0) g/dL Hct 23.5 L (37.2-46.3) % MCV 102.2 H (80.0-97.0) FL MCH 33.0 H (27.0-32.0) pg RDW 23.7 H (11.5-14.5) % Plt Count 50 L (140-440) X 10*3/uL MPV 13.0 H (9.5-12.2) FL Immature Gran # (0.00-0.04) 10*3/uL Neutrophils # (Manual) 1.51 L (1.80-7.70) X 10*3/uL Lymphocytes # (Manual) 0.29 L (0.90-5.00) X 10*3/uL Monocytes # (Manual) 0.02 L (0.20-1.00) X 10*3/uL Eosinophils # (Manual) 0.02 L (0.04-0.35) X 10*3/uL Immature Plt Fraction 11.2 H (1.1-6.1) % Macrocytosis (manual) 2+ A (None Seen) Sodium (137-145) mmol/L Creatinine 0.5 L (0.6-1.5) mg/dL BUN/Creatinine Ratio 29.00 H (12.00-20.00) Ratio Glucose 117 H (70-110) mg/dL POC Glucose (mg/dL) 147 H (70-110) mg/dL Calcium 7.6 L (8.7-10.3) mg/dL Total Bilirubin (0.2-1.3) mg/dL AST 62 H (13-35) U/L Alkaline Phosphatase 510 H (41-126) U/L Total Protein 4.1 L (6.2-8.2) g/dL Albumin 2.3 L (3.8-4.9) g/dL Albumin/Globulin Ratio 1.28 L (1.60-3.17) Ratio 12/03/24 12/03/24 12/03/24 Range/Units 15:10 17:05 19:56 WBC (4.50-10.00) X 10*3/uL RBC (4.10-5.20) X 10*6/uL Hgb (12.0-15.0) g/dL Hct (37.2-46.3) % MCV (80.0-97.0) FL MCH (27.0-32.0) pg RDW (11.5-14.5) % Plt Count (140-440) X 10*3/uL MPV (9.5-12.2) FL Immature Gran # (0.00-0.04) 10*3/uL Neutrophils # (Manual) (1.80-7.70) X 10*3/uL Lymphocytes # (Manual) (0.90-5.00) X 10*3/uL Monocytes # (Manual) (0.20-1.00) X 10*3/uL Eosinophils # (Manual) (0.04-0.35) X 10*3/uL Immature Plt Fraction (1.1-6.1) % Macrocytosis (manual) (None Seen) Sodium (137-145) mmol/L Creatinine (0.6-1.5) mg/dL BUN/Creatinine Ratio (12.00-20.00) Ratio Glucose (70-110) mg/dL POC Glucose (mg/dL) 218 H 179 H 126 H (70-110) mg/dL Calcium (8.7-10.3) mg/dL Total Bilirubin (0.2-1.3) mg/dL AST (13-35) U/L Alkaline Phosphatase (41-126) U/L Total Protein (6.2-8.2) g/dL Albumin (3.8-4.9) g/dL Albumin/Globulin Ratio (1.60-3.17) Ratio 12/04/24 12/04/24 12/04/24 Range/Units 06:01 06:15 06:15 WBC 2.05 L (4.50-10.00) X 10*3/uL RBC 2.21 L (4.10-5.20) X 10*6/uL Hgb 7.4 L (12.0-15.0) g/dL Hct 22.7 L (37.2-46.3) % MCV 102.7 H (80.0-97.0) FL MCH 33.5 H (27.0-32.0) pg RDW (11.5-14.5) % Plt Count 38 L (140-440) X 10*3/uL MPV (9.5-12.2) FL Immature Gran # 0.06 H (0.00-0.04) 10*3/uL Neutrophils # (Manual) (1.80-7.70) X 10*3/uL Lymphocytes # (Manual) 0.39 L (0.90-5.00) X 10*3/uL Monocytes # (Manual) (0.20-1.00) X 10*3/uL Eosinophils # (Manual) (0.04-0.35) X 10*3/uL Immature Plt Fraction 7.0 H (1.1-6.1) % Macrocytosis (manual) (None Seen) Sodium 134 L (137-145) mmol/L Creatinine (0.6-1.5) mg/dL BUN/Creatinine Ratio (12.00-20.00) Ratio Glucose 123 H (70-110) mg/dL POC Glucose (mg/dL) 125 H (70-110) mg/dL Calcium 7.4 L (8.7-10.3) mg/dL Total Bilirubin 1.5 H (0.2-1.3) mg/dL AST 50 H (13-35) U/L Alkaline Phosphatase 474 H (41-126) U/L Total Protein 4.2 L (6.2-8.2) g/dL Albumin 2.0 L (3.8-4.9) g/dL Albumin/Globulin Ratio (1.60-3.17) Ratio
[2024-12-04] MEDS: ATORVASTATIN 40 MG TAB PO SCH (13:52)
--- NOTE | 2024-12-04 14:26 | CT ---
EXAMINATION TYPE: CT brain wo con DATE OF EXAM: 12/04/2024 2:13 PM COMPARISON: 12/03/2024. CLINICAL INDICATION: Female, 74 years old with history of stroke, bilateral leg weakness, stroke, cooper ateral leg weakness TECHNIQUE: Brain: Axial CT images of the brain were obtained with coronal and sagittal reformats created and rev iewed. Contrast used: None. Oral contrast used: None. CT DLP: 1125.4 mGycm, Automated exposure control for dose reduction was used. FINDINGS: Brain: Extra-axial spaces: No abnormal extra-axial fluid collections. Ventricular system: Within normal limits Cerebral parenchyma: Involving infarct of the right frontal lobe No evidence for hemorrhagic conversi on. There is r roughly the same size measuring up to 33 mm. No acute intraparenchymal hemorrhage or m ass effect. The remainder of the spencer-white junctions are well differentiated. Cerebellum: Unremarkable. Mass effect: No evidence of midline shift. Intracranial vasculature: Atherosclerotic calcifications of the intracranial vessels. Soft tissues: Normal. Calvarium/osseous structures: No depressed skull fracture. Paranasal sinuses and mastoid air cells: Mild scattered paranasal sinus disease. Visualized orbits: Orbital contents are intact. IMPRESSION: Involving infarct of the right frontal lobe. No evidence for hemorrhagic conversion at this time. [facility], , 12/04/2024 2:24 PM
[2024-12-04] MEDS: ASPIRIN 81 MG PO SCH (16:07)
[2024-12-04 17:02] LABS: Glucose,Whole Blood 133 mg/dL (70-110)
[2024-12-04 21:02] LABS: Glucose,Whole Blood 165 mg/dL (70-110)
--- NOTE | 2024-12-04 21:23 | P.PN ---
Subjective Progress Note Date: 12/04/24 Principal diagnosis: Metastatic pancreatic cancer - Brain CT obtained due to persistent weakness revealed acute infarct in the right frontal lobe - CT angiography revealed no acute findings - Clinically, she does not have any acute neurologic deficits outside of weakness Objective - Vital Signs Vital signs: Vital Signs Temp 98.4 F 12/04/24 16:30 Pulse 79 12/04/24 16:30 Resp 18 12/04/24 16:30 BP 123/77 12/04/24 16:30 Pulse Ox 95 12/04/24 16:30 FiO2 Intake & Output 12/04/24 12/04/24 12/05/24 06:59 18:59 06:59 Intake Total 1000 Balance 1000 Weight 64.5 kg Intake: Intake, IV Titration 280 Amount Sodium Chloride 0.9% 1, 280 000 ml @ 70 mls/hr IV . [id number] [facility] Rx#:[id number] Oral 720 Other: Voiding Method Bedside Commode Bedside Commode Diaper Diaper External Catheter External Catheter # Voids 1 # Bowel Movements 1 1 - Constitutional Constitutional Comment(s): Lying in bed, fatigued appearing General appearance: Present: no acute distress - EENT Eyes: Present: EOMI - Respiratory Details: Nonlabored breathing - Cardiovascular Details: Warm and well-perfused - Peripheral edema leg Peripheral Edema: bilateral: 2+ - Gastrointestinal General gastrointestinal: Present: soft. Absent: distended - Integumentary Integumentary: Present: pale - Neurologic Neurologic: Present: CNII-XII intact. Absent: focal deficits - Labs CBC & Chem 7: 12/04/24 06:15 12/04/24 06:15 Labs: Abnormal Lab Results - Last 24 Hours (Table) 12/04/24 12/04/24 12/04/24 Range/Units 06:01 06:15 06:15 WBC 2.05 L (4.50-10.00) 10*3/uL RBC 2.21 L (4.10-5.20) 10*6/uL Hgb 7.4 L (12.0-15.0) g/dL Hct 22.7 L (37.2-46.3) % MCV 102.7 H (80.0-97.0) fL MCH 33.5 H (27.0-32.0) pg Plt Count 38 L (140-440) 10*3/uL Immature Gran # 0.06 H (0.00-0.04) 10*3/uL Lymphocytes # (Manual) 0.39 L (1.0-4.8) k/uL Immature Plt Fraction 7.0 H (1.1-6.1) % Sodium 134 L (137-145) mmol/L Glucose 123 H (74-99) mg/dL POC Glucose (mg/dL) 125 H (70-110) mg/dL Calcium 7.4 L (8.4-10.2) mg/dL Total Bilirubin 1.5 H (0.2-1.3) mg/dL AST 50 H (14-36) U/L Alkaline Phosphatase 474 H (38-126) U/L Total Protein 4.2 L (6.3-8.2) g/dL Albumin 2.0 L (3.5-5.0) g/dL HDL Cholesterol 29.40 L (40.00-60.00) mg/dL 12/04/24 12/04/24 12/04/24 Range/Units 11:45 16:55 21:01 WBC (4.50-10.00) 10*3/uL RBC (4.10-5.20) 10*6/uL Hgb (12.0-15.0) g/dL Hct (37.2-46.3) % MCV (80.0-97.0) fL MCH (27.0-32.0) pg Plt Count (140-440) 10*3/uL Immature Gran # (0.00-0.04) 10*3/uL Lymphocytes # (Manual) (1.0-4.8) k/uL Immature Plt Fraction (1.1-6.1) % Sodium (137-145) mmol/L Glucose (74-99) mg/dL POC Glucose (mg/dL) 188 H 133 H 165 H (70-110) mg/dL Calcium (8.4-10.2) mg/dL Total Bilirubin (0.2-1.3) mg/dL AST (14-36) U/L Alkaline Phosphatase (38-126) U/L Total Protein (6.3-8.2) g/dL Albumin (3.5-5.0) g/dL HDL Cholesterol (40.00-60.00) mg/dL Assessment and Plan (1) Anemia due to chemotherapy Current Visit: Yes Status: Acute Code(s): D64.81 - ANEMIA DUE TO ANTINEOPLASTIC CHEMOTHERAPY; T45.1X5A - ADVERSE EFFECT OF ANTINEOPLASTIC AND IMMUNOSUP DRUGS, INIT SNOMED Code(s): 147367171370876 (2) Primary pancreatic cancer with metastasis to other site Current Visit: Yes Status: Acute Code(s): C25.9 - MALIGNANT NEOPLASM OF PANCREAS, UNSPECIFIED SNOMED Code(s): 854971968 (3) Stroke Current Visit: No Status: Acute Code(s): I63.9 - CEREBRAL INFARCTION, UNSPECIFIED SNOMED Code(s): 903223619 (4) Weakness Current Visit: No Status: Acute Code(s): R53.1 - WEAKNESS SNOMED Code(s): 60253812 Plan: Acute ischemic stroke: Presented with progressing generalized weakness and fatigue and decreased oral intake. Also reporting BLE edema and low back pain with BLE pain -Symptoms have been progressive over the last 1 month -BLE dopplers negative for DVT -Brain CT noted ischemic stroke in the right frontal lobe -Echo with bubble study revealed evidence of PFO -Cardiology and neurology have been consulted -Recommend continued management of stroke per primary and other consulting teams Chemo induced anemia and thrombocytopenia: -Labs today noted stable hemoglobin of 7.4 with platelets 38 and WBC 2.05 (ANC 1.58) -1 unit packed red blood cells given on admission -She has progressive thrombocytopenia secondary to gemcitabine chemotherapy -Continue to monitor CBC, with supportive transfusions as needed Metastatic prostate cancer: -Oncology history as dictated in the HPI -Started Gemzar and Abraxane on 10/23/24. She completed cycle 1, day 15 on 11/13/24 with G-CSF -She last received cycle 2, day 1 on 11/27/2024 -We did have a prolonged discussion today with regards to additional treatment -Her son did note concern with regards to her ability to receive additional treatment in the future given the stroke -For now, we agreed with continuing current medical management -As she is clinically stable at this time, there is no acute indication for a full goals of care discussion at this time -This can be pursued outpatient with her primary oncologist -Clinic f/u upon discharge Roel Copeland MD Time with Patient: Greater than 30
[2024-12-05 06:06] LABS: Glucose,Whole Blood 125 mg/dL (70-110)
[2024-12-05 07:04] LABS: Basophils # (A) 0.01 10*3/uL (0.00-0.10); Basophils % (A) 0.5 %; Eosinophils # (A) 0.01 10*3/uL (0.04-0.35); Eosinophils % (A) 0.5 %; HCT 22.7 % (37.2-46.3); HGB 7.4 g/dL (12.0-15.0); Lymphocytes # (A) 0.56 10*3/uL (0.90-5.00); Lymphocytes % (A) 25.8 %; MCH 33.8 pg (27.0-32.0); MCHC 32.6 g/dL (32.0-37.0); MCV 103.7 fL (80.0-97.0); Mean Platelet Volume 12.4 fL (9.5-12.2); Monocytes # (A) 0.14 10*3/uL (0.20-1.00); Monocytes % (A) 6.5 %; Neutrophils # (A) 1.42 10*3/uL (1.80-7.70); Neutrophils % (A) 65.3 %; RBC 2.19 10*6/uL (4.10-5.20); RDW 21.2 % (11.5-14.5); WBC 2.17 10*3/uL (4.50-10.00)
[2024-12-05 07:18] LABS: Platelet Count 32 10*3/uL (140-440)
[2024-12-05 07:46] LABS: ALT 24 U/L (4-34); AST 51 U/L (14-36); African American GFR (CKD) >90 (>60 ml/min/1.73 sqM); Alkaline Phosphatase 467 U/L (38-126); Anion Gap -1 mmol/L; Blood Urea Nitrogen 14 mg/dL (7-17); Calcium 7.9 mg/dL (8.4-10.2); Carbon Dioxide 29 mmol/L (22-30); Chloride 105 mmol/L (98-107); Glucose 117 mg/dL (74-99); Non-African American GFR(CKD) >90 (>60 ml/min/1.73 sqM); Potassium 3.9 mmol/L (3.5-5.1); Sodium 133 mmol/L (137-145); Total Bilirubin 1.4 mg/dL (0.2-1.3); Total Protein 4.2 g/dL (6.3-8.2)
--- NOTE | 2024-12-05 10:43 | P.PN ---
Subjective Progress Note Date: 12/05/24 74-year-old pleasant female came in complaints of generalized weakness and mental fogginess patient received chemotherapy on 18 of this month. Patient does have bilateral lower extremity swelling does take Lasix at home patient is mildly hyponatremic. Patient was also found to have low hemoglobin of around 6.5 received 180 of pRBC transfusion patient feels slightly better but still quite weak patient has an elevated MCV. Patient does have history of pancreatic cancer on chemotherapy as mentioned above patient had a liver ultrasound which showed a possible metastatic lesion in the liver and some gallbladder wall thickening although patient denied any significant abdominal pain. Chest x-ray showed mild bilateral pleural effusions patient denied any history of congestive heart failure. Venous Doppler left lower extremity did not show any DVT. 12/03/2024 Patient seen and examined at bedside. Patient son at bedside who states he feels his mother has had some ongoing slurred speech and overall lethargy and confusion that he was concerned with. He was unsure but feels it may have began Saturday. Upon speaking with speech language pathology it was noted that she had some left-sided facial drooping. CT brain was ordered and found to have right- sided frontal lobe ischemic stroke. Code stroke was activated. Neurology was consulted. Aspirin and statin given. Ordered echocardiogram with bubble study, CTA head and neck. Patient subsequently transferred to [facility]. Labs today reveal WBC 1.91, hemoglobin 7.6, platelets 50, glucose 117, AST 62, ALP 510. TSH is WNL. 12/04/2024 Patient seen and examined at bedside. Discussed with patient and son risks and benefits of CODE STATUS. They showed understanding and consider options. Patient remains lethargic. Heme-onc following patient. WBC 2.0, hemoglobin 7.4, MCV 102.7, platelets 38, sodium 134, potassium 3.9, 125, bilirubin 1.5, AST 50, ALP 474, lipid panel is WNL. 12/05/2024 Patient seen and examined at bedside. No acute events overnight. Patient and family wish to proceed with NO CODE status. Discussed at length options for next steps, patient previously declined postacute rehab. Patient and family will discuss and weigh options. Patient denies any pain, continues to be lethargic. Heme-onc following patient. Today WBC 2.1, hemoglobin 7.4, platelets 32, sodium 133, glucose 117, total bilirubin 1.4, ALP 467. REVIEW OF SYSTEMS: All other systems are negative except those mentioned in the HPI PHYSICAL EXAMINATION: Vitals reviewed GENERAL: The patient is alert and oriented x3, not in any acute distress. Appea rs to be a malnourished thin built. CARDIOVASCULAR: S1 and S2 present. No murmurs, rubs, or gallops. PULMONARY: Chest is clear to auscultation, no wheezing or crackles. ABDOMEN: Soft, nontender, nondistended, normoactive bowel sounds. No palpable organomegaly. MUSCULOSKELETAL: No joint swelling or deformity. EXTREMITIES: No cyanosis, clubbing, or pedal edema. NEUROLOGICAL: 5/5 strength in upper and lower extremities. Left-sided facial droop, otherwise unremarkable cranial nerve exam. SKIN: No rashes. Assessment and plan Acute ischemic stroke involving right frontal lobe without hemorrhage. Code stroke initiated. Neurology consulted. CT brain reviewed. Echocardiogram with bubble study with evidence of shunting across interatrial septum. CTA head and neck with no significant occlusive disease within head or neck, no sizable aneurysm sac or vascular malformation. Aspirin and atorvastatin not given due to low platelets and history of metastasis to liver. PT OT and speech are consulted. -Generalized weakness tiredness secondary to pancreatic cancer and anemia, PT recommending home with home care Thrombocytopeniahematology on consult, consider platelets transfusion - Peripheral edema secondary to malnutrition, will use Lasix on as-needed basis and compression socks since patient has mild bilateral pleural effusions - Possible hypervolemic hyponatremia. - Moderate protein calorie malnutrition secondary to cancer will encourage high- protein diet and probably Ensure - Pancreatic cancer with metastasis oncology was following patient. Hospice consult may be appropriate. - Type 2 diabetes mellitus patient will be started on sliding scale insulin hold off on glipizide - Diabetic peripheral neuropathy patient will be resumed on gabapentin DVT prophylaxis: SCDs Dr. Casillas seen patient with resident, present during exam, and agreed with findings. Attestation I have seen and examined this patient with my resident , discussed the same with the resident/NATALIYA, and agree with the dictator's assessment and plan as written Dr. Mingo casillas Objective - Vital Signs Vital signs: Vital Signs Temp 98.1 F 12/05/24 09:39 Pulse 70 12/05/24 09:39 Resp 15 12/05/24 09:39 BP 105/70 12/05/24 09:39 Pulse Ox 97 12/05/24 09:39 FiO2 Intake & Output 12/04/24 12/05/24 12/05/24 18:59 06:59 18:59 Intake Total 1000 Balance 1000 Weight 68.5 kg Intake: Intake, IV Titration 280 Amount Sodium Chloride 0.9% 1, 280 000 ml @ 70 mls/hr IV . [id number] [facility] Rx#:[id number] Oral 720 Other: Voiding Method Bedside Commode Bedside Commode Bedside Commode Diaper Diaper Diaper External Catheter External Catheter External Catheter # Voids 1 1 # Bowel Movements 1 1 1 - Labs CBC & Chem 7: 12/06/24 06:20 12/06/24 06:20 Labs: Abnormal Lab Results - Last 24 Hours (Table) 12/04/24 12/04/24 12/04/24 Range/Units 06:15 11:45 16:55 WBC (4.50-10.00) 10*3/uL RBC (4.10-5.20) 10*6/uL Hgb (12.0-15.0) g/dL Hct (37.2-46.3) % MCV (80.0-97.0) fL MCH (27.0-32.0) pg Plt Count (140-440) 10*3/uL MPV (9.5-12.2) fL Neutrophils # (1.80-7.70) 10*3/uL Lymphocytes # (0.90-5.00) 10*3/uL Monocytes # (0.20-1.00) 10*3/uL Eosinophils # (0.04-0.35) 10*3/uL Sodium (137-145) mmol/L Glucose (74-99) mg/dL POC Glucose (mg/dL) 188 H 133 H (70-110) mg/dL Calcium (8.4-10.2) mg/dL Total Bilirubin (0.2-1.3) mg/dL AST (14-36) U/L Alkaline Phosphatase (38-126) U/L Total Protein (6.3-8.2) g/dL Albumin (3.5-5.0) g/dL HDL Cholesterol 29.40 L (40.00-60.00) mg/dL 12/04/24 12/05/24 12/05/24 Range/Units 21:01 06:04 06:24 WBC 2.17 L (4.50-10.00) 10*3/uL RBC 2.19 L (4.10-5.20) 10*6/uL Hgb 7.4 L (12.0-15.0) g/dL Hct 22.7 L (37.2-46.3) % MCV 103.7 H (80.0-97.0) fL MCH 33.8 H (27.0-32.0) pg Plt Count 32 L (140-440) 10*3/uL MPV 12.4 H (9.5-12.2) fL Neutrophils # 1.42 L (1.80-7.70) 10*3/uL Lymphocytes # 0.56 L (0.90-5.00) 10*3/uL Monocytes # 0.14 L (0.20-1.00) 10*3/uL Eosinophils # 0.01 L (0.04-0.35) 10*3/uL Sodium (137-145) mmol/L Glucose (74-99) mg/dL POC Glucose (mg/dL) 165 H 125 H (70-110) mg/dL Calcium (8.4-10.2) mg/dL Total Bilirubin (0.2-1.3) mg/dL AST (14-36) U/L Alkaline Phosphatase (38-126) U/L Total Protein (6.3-8.2) g/dL Albumin (3.5-5.0) g/dL HDL Cholesterol (40.00-60.00) mg/dL 12/05/24 Range/Units 06:24 WBC (4.50-10.00) 10*3/uL RBC (4.10-5.20) 10*6/uL Hgb (12.0-15.0) g/dL Hct (37.2-46.3) % MCV (80.0-97.0) fL MCH (27.0-32.0) pg Plt Count (140-440) 10*3/uL MPV (9.5-12.2) fL Neutrophils # (1.80-7.70) 10*3/uL Lymphocytes # (0.90-5.00) 10*3/uL Monocytes # (0.20-1.00) 10*3/uL Eosinophils # (0.04-0.35) 10*3/uL Sodium 133 L (137-145) mmol/L Glucose 117 H (74-99) mg/dL POC Glucose (mg/dL) (70-110) mg/dL Calcium 7.9 L (8.4-10.2) mg/dL Total Bilirubin 1.4 H (0.2-1.3) mg/dL AST 51 H (14-36) U/L Alkaline Phosphatase 467 H (38-126) U/L Total Protein 4.2 L (6.3-8.2) g/dL Albumin 2.0 L (3.5-5.0) g/dL HDL Cholesterol (40.00-60.00) mg/dL
[2024-12-05 11:08] LABS: Glucose,Whole Blood 172 mg/dL (70-110)
--- NOTE | 2024-12-05 14:13 | P.PN ---
Subjective Progress Note Date: 12/05/24 I am following-up with patient and no new neurological issues. Objective - Vital Signs Vital signs: Vital Signs Temp 98.1 F 12/05/24 09:39 Pulse 65 12/05/24 11:04 Resp 15 12/05/24 11:04 BP 106/75 12/05/24 11:04 Pulse Ox 98 12/05/24 11:04 FiO2 Intake & Output 12/04/24 12/05/24 12/05/24 18:59 06:59 18:59 Intake Total 1000 0 Balance 1000 0 Weight 68.5 kg Intake: Intake, IV Titration 280 Amount Sodium Chloride 0.9% 1, 280 000 ml @ 70 mls/hr IV . [id number] [facility] Rx#:[id number] Oral 720 0 Other: Voiding Method Bedside Commode Bedside Commode Bedside Commode Diaper Diaper Diaper External Catheter External Catheter External Catheter # Voids 1 1 # Bowel Movements 1 1 1 - Exam GENERAL: The patient is sitting in a recliner chair and is not in acute distress. Patient appears slightly less lethargic today. NEUROLOGICAL: Higher mental function: The patient is slightly drowsy but is awakeable to voice,oriented to self, place and time. Patient is following commands. No aphasia and no neglect. Cranial nerves: The pupils are round, equal and reactive to light and accommodation. Visual blackburn are full to confrontation throughout. Extraocular movement is intact no nystagmus is noted. Facial sensation is normal to touch throughout. The facial strength is mild left facial weakness. Hearing is mildly to moderately decreased bilaterally to hand rub. Tongue is midline and moved [id number] without any difficulty. No dysarthria is noted. Shoulder shrug is normal bilaterally. Motor: The strength is left arm extension is 4+, otherwise rest of left upper and entire right upper extremity is 5/5. Lower extremity proximally is 2 bilaterally. Ankles are 3 bilaterally. Mild decrease tone in lowers. Cerebellum: Normal finger to nose bilaterally. Sensation: Sensation is normal to touch throughout. Plantars are mute bilaterally. Some of the workup during this hospital visit consisted of:. The platelets yesterday was 50,000 and currently is 38,000.-->32K. Bilateral lower extremities: Negative for DVT CT of the head is reported as acute infarct involving the right frontal. Personally feel the hypodensity over the right frontal region seems acute to subacute. Next CT angiography of the head and neck is reported significant occlusive disease within the head or neck. There is no sizable aneurysm or vascular malformation. Echo is reported as normal left ventricular size and systolic function. Evidence of shunting across intra-atrial septum with contrast bubble. Moderate mitral regurgitation with mild tricuspid regurgitation. Repeat CT head: Involving infarct right frontal lobe. No evidence for hemorrhagic conversion at this time. - Labs CBC & Chem 7: 12/05/24 06:24 12/05/24 06:24 Labs: Abnormal Lab Results - Last 24 Hours (Table) 12/04/24 12/04/24 12/05/24 Range/Units 16:55 21:01 06:04 WBC (4.50-10.00) 10*3/uL RBC (4.10-5.20) 10*6/uL Hgb (12.0-15.0) g/dL Hct (37.2-46.3) % MCV (80.0-97.0) fL MCH (27.0-32.0) pg Plt Count (140-440) 10*3/uL MPV (9.5-12.2) fL Neutrophils # (1.80-7.70) 10*3/uL Lymphocytes # (0.90-5.00) 10*3/uL Monocytes # (0.20-1.00) 10*3/uL Eosinophils # (0.04-0.35) 10*3/uL Sodium (137-145) mmol/L Glucose (74-99) mg/dL POC Glucose (mg/dL) 133 H 165 H 125 H (70-110) mg/dL Calcium (8.4-10.2) mg/dL Total Bilirubin (0.2-1.3) mg/dL AST (14-36) U/L Alkaline Phosphatase (38-126) U/L Total Protein (6.3-8.2) g/dL Albumin (3.5-5.0) g/dL 12/05/24 12/05/24 12/05/24 Range/Units 06:24 06:24 11:07 WBC 2.17 L (4.50-10.00) 10*3/uL RBC 2.19 L (4.10-5.20) 10*6/uL Hgb 7.4 L (12.0-15.0) g/dL Hct 22.7 L (37.2-46.3) % MCV 103.7 H (80.0-97.0) fL MCH 33.8 H (27.0-32.0) pg Plt Count 32 L (140-440) 10*3/uL MPV 12.4 H (9.5-12.2) fL Neutrophils # 1.42 L (1.80-7.70) 10*3/uL Lymphocytes # 0.56 L (0.90-5.00) 10*3/uL Monocytes # 0.14 L (0.20-1.00) 10*3/uL Eosinophils # 0.01 L (0.04-0.35) 10*3/uL Sodium 133 L (137-145) mmol/L Glucose 117 H (74-99) mg/dL POC Glucose (mg/dL) 172 H (70-110) mg/dL Calcium 7.9 L (8.4-10.2) mg/dL Total Bilirubin 1.4 H (0.2-1.3) mg/dL AST 51 H (14-36) U/L Alkaline Phosphatase 467 H (38-126) U/L Total Protein 4.2 L (6.3-8.2) g/dL Albumin 2.0 L (3.5-5.0) g/dL Assessment and Plan Assessment: This is a 74-year-old woman with history of pancreatic cancer with mets to the liver on chemotherapy, thrombocytopenia, history of pulmonary embolism on Eliquis but that is held because of the thrombocytopenia about a month ago who presents because of generalized weakness especially lower extremity weakness with edema. Yesterday code stroke since lethargic and it was felt she had left facial weakness possibly since this Saturday and showed acute right frontal stroke but per son left facial weakness is old. Acute to subacute right frontal stroke. No IV or thrombolytics since outside the window and the risk outweigh the benefit. Etiology of the stroke is due to her history of cancer, age and sex. Repeat CT head is stable. Has positive PFO with Negative for DVT in lowers. Significant thrombocytopenia--worsening Positive PFO on the 2D echo History of pancreatic cancer with mets to the liver on chemotherapy Bilateral lower extremity edema with significant weakness. History of pulmonary embolism not on anticoagulation because of her thrombocytopenia for the past 1 month Plan: Recommend avoiding antiplatelets because of the significant thrombocytopenia and the risk outweigh the benefit. Once the platelet is improved then consider only aspirin 81 mg daily from a neurology perspective. Will defer the use of anticoagulation to the primary team. MRI of the brain is ordered but unable to obtain because patient has a port that is not MRI compatible. Patient was started on Lipitor 40 mg daily. If there is any contraindication of the use of statin specially with history of metastasis to the liver then recommend avoiding that I will defer that to the primary team Regarding the PFO recommend cardiology consultation Continue neurochecks Cardiac monitoring Oncology is consulted PT OT and MEDICAL REIMBURSEMENT SPECIALIST are consulted For DVT prophylaxis use SCDs and avoid anticoagulation because of her significant thrombocytopenia Plan discussed with the patient, her son was at bedside. Will follow-up sporadically. Dr. Marques will resume neurology service this Saturday A.M. Time with Patient: Less than 30
[2024-12-05 16:09] LABS: Glucose,Whole Blood 210 mg/dL (70-110)
[2024-12-05 20:09] LABS: Glucose,Whole Blood 182 mg/dL (70-110)
[2024-12-06 06:10] LABS: Glucose,Whole Blood 123 mg/dL (70-110)
[2024-12-06 07:01] LABS: Basophils # (A) 0.01 10*3/uL (0.00-0.10); Basophils % (A) 0.3 %; Eosinophils # (A) 0.01 10*3/uL (0.04-0.35); Eosinophils % (A) 0.3 %; HCT 22.3 % (37.2-46.3); HGB 7.1 g/dL (12.0-15.0); Lymphocytes # (A) 0.71 10*3/uL (0.90-5.00); MCH 33.2 pg (27.0-32.0); MCHC 31.8 g/dL (32.0-37.0); MCV 104.2 fL (80.0-97.0); Mean Platelet Volume 12.5 fL (9.5-12.2); Monocytes # (A) 0.35 10*3/uL (0.20-1.00); Monocytes % (A) 11.8 %; Neutrophils # (A) 1.82 10*3/uL (1.80-7.70); Neutrophils % (A) 61.6 %; RBC 2.14 10*6/uL (4.10-5.20); RDW 21.4 % (11.5-14.5); WBC 2.96 10*3/uL (4.50-10.00)
[2024-12-06 07:13] LABS: Platelet Count 31 10*3/uL (140-440)
[2024-12-06 07:33] LABS: ALT 22 U/L (4-34); AST 43 U/L (14-36); African American GFR (CKD) >90 (>60 ml/min/1.73 sqM); Alkaline Phosphatase 425 U/L (38-126); Anion Gap 1 mmol/L; Blood Urea Nitrogen 15 mg/dL (7-17); Calcium 7.7 mg/dL (8.4-10.2); Carbon Dioxide 28 mmol/L (22-30); Chloride 105 mmol/L (98-107); Glucose 116 mg/dL (74-99); Non-African American GFR(CKD) 89 (>60 ml/min/1.73 sqM); Potassium 3.7 mmol/L (3.5-5.1); Sodium 134 mmol/L (137-145); Total Bilirubin 1.3 mg/dL (0.2-1.3); Total Protein 4.3 g/dL (6.3-8.2)
[2024-12-06 11:25] LABS: Glucose,Whole Blood 233 mg/dL (70-110)
[2024-12-06] MEDS: FUROSEMIDE 10 MG/ML 2 ML VIAL IV ONE (13:46)
--- NOTE | 2024-12-06 14:15 | P.PN ---
Subjective Progress Note Date: 12/06/24 74-year-old pleasant female came in complaints of generalized weakness and mental fogginess patient received chemotherapy on 18 of this month. Patient does have bilateral lower extremity swelling does take Lasix at home patient is mildly hyponatremic. Patient was also found to have low hemoglobin of around 6.5 received 180 of pRBC transfusion patient feels slightly better but still quite weak patient has an elevated MCV. Patient does have history of pancreatic cancer on chemotherapy as mentioned above patient had a liver ultrasound which showed a possible metastatic lesion in the liver and some gallbladder wall thickening although patient denied any significant abdominal pain. Chest x-ray showed mild bilateral pleural effusions patient denied any history of congestive heart failure. Venous Doppler left lower extremity did not show any DVT. 12/03/2024 Patient seen and examined at bedside. Patient son at bedside who states he feels his mother has had some ongoing slurred speech and overall lethargy and confusion that he was concerned with. He was unsure but feels it may have began Saturday. Upon speaking with speech language pathology it was noted that she had some left-sided facial drooping. CT brain was ordered and found to have right- sided frontal lobe ischemic stroke. Code stroke was activated. Neurology was consulted. Aspirin and statin given. Ordered echocardiogram with bubble study, CTA head and neck. Patient subsequently transferred to [facility]. Labs today reveal WBC 1.91, hemoglobin 7.6, platelets 50, glucose 117, AST 62, ALP 510. TSH is WNL. 12/04/2024 Patient seen and examined at bedside. Discussed with patient and son risks and benefits of CODE STATUS. They showed understanding and consider options. Patient remains lethargic. Heme-onc following patient. WBC 2.0, hemoglobin 7.4, MCV 102.7, platelets 38, sodium 134, potassium 3.9, 125, bilirubin 1.5, AST 50, ALP 474, lipid panel is WNL. 12/05/2024 Patient seen and examined at bedside. No acute events overnight. Patient and family wish to proceed with NO CODE status. Discussed at length options for next steps, patient previously declined postacute rehab. Patient and family will discuss and weigh options. Patient denies any pain, continues to be lethargic. Heme-onc following patient. Today WBC 2.1, hemoglobin 7.4, platelets 32, sodium 133, glucose 117, total bilirubin 1.4, ALP 467. 4. Patient seen and examined. Son at the bedside, patient has swelling of lower extremities which family thinks is improved from before, will give 1 dose of Lasix. Family wants patient to go to rehab. REVIEW OF SYSTEMS: All other systems are negative except those mentioned in the HPI PHYSICAL EXAMINATION: Vitals reviewed GENERAL: The patient is alert and oriented x3, not in any acute distress. Appears to be a malnourished thin built. CARDIOVASCULAR: S1 and S2 present. No murmurs, rubs, or gallops. PULMONARY: Chest is clear to auscultation, no wheezing or crackles. ABDOMEN: Soft, nontender, nondistended, normoactive bowel sounds. No palpable organomegaly. MUSCULOSKELETAL: No joint swelling or deformity. EXTREMITIES: No cyanosis, clubbing, 1+ pitting edema of lower extremities NEUROLOGICAL: 5/5 strength in upper and lower extremities. Left-sided facial droop, otherwise unremarkable cranial nerve exam. SKIN: No rashes. Assessment and plan Acute ischemic stroke involving right frontal lobe without hemorrhage. Code stroke initiated. Neurology consulted. CT brain reviewed. Echocardiogram with bubble study with evidence of shunting across interatrial septum. CTA head and neck with no significant occlusive disease within head or neck, no sizable aneurysm sac or vascular malformation. Aspirin and atorvastatin not given due to low platelets and history of metastasis to liver. Neurology evaluated, recommended avoiding antiplatelets because of significant thrombocytopenia. MRI of the brain is ordered but unable to obtain because patient has a port that is not MRI compatible.. PT OT and speech are consulted. -Generalized weakness tiredness secondary to pancreatic cancer and anemia, PT recommending home with home care Thrombocytopeniahematology on consult, consider platelets transfusion - Peripheral edema secondary to malnutrition, will use Lasix on as-needed basis and compression socks since patient has mild bilateral pleural effusions - Possible hypervolemic hyponatremia. - Moderate protein calorie malnutrition secondary to cancer will encourage high-protein diet and probably Ensure - Pancreatic cancer with metastasis oncology was following patient. Hospice consult may be appropriate. - Type 2 diabetes mellitus patient will be started on sliding scale insulin hold off on glipizide - Diabetic peripheral neuropathy patient will be resumed on gabapentin DVT prophylaxis: SCDs Objective - Vital Signs Vital signs: Vital Signs Temp 97.5 F L 12/06/24 08:09 Pulse 85 12/06/24 11:23 Resp 15 12/06/24 11:23 BP 109/74 12/06/24 11:23 Pulse Ox 100 12/06/24 11:23 FiO2 Intake & Output 12/05/24 12/06/24 12/06/24 18:59 06:59 18:59 Intake Total 0 0 Output Total 500 Balance 0 -500 Weight 68 kg Intake: Oral 0 0 Output: Urine 500 Straight 200 Other: Voiding Method Bedside Commode Bedside Commode Diaper Diaper Diaper External Catheter # Voids 1 2 # Bowel Movements 2 1 1 - Labs CBC & Chem 7: 12/06/24 06:20 12/06/24 06:20 Labs: Abnormal Lab Results - Last 24 Hours (Table) 12/05/24 12/05/24 12/06/24 Range/Units 16:07 20:04 06:08 WBC (4.50-10.00) 10*3/uL RBC (4.10-5.20) 10*6/uL Hgb (12.0-15.0) g/dL Hct (37.2-46.3) % MCV (80.0-97.0) fL MCH (27.0-32.0) pg MCHC (32.0-37.0) g/dL Plt Count (140-440) 10*3/uL MPV (9.5-12.2) fL Immature Gran # (0.00-0.04) 10*3/uL Lymphocytes # (0.90-5.00) 10*3/uL Eosinophils # (0.04-0.35) 10*3/uL Sodium (137-145) mmol/L Glucose (74-99) mg/dL POC Glucose (mg/dL) 210 H 182 H 123 H (70-110) mg/dL Calcium (8.4-10.2) mg/dL AST (14-36) U/L Alkaline Phosphatase (38-126) U/L Total Protein (6.3-8.2) g/dL Albumin (3.5-5.0) g/dL 12/06/24 12/06/24 12/06/24 Range/Units 06:20 06:20 11:22 WBC 2.96 L (4.50-10.00) 10*3/uL RBC 2.14 L (4.10-5.20) 10*6/uL Hgb 7.1 L (12.0-15.0) g/dL Hct 22.3 L (37.2-46.3) % MCV 104.2 H (80.0-97.0) fL MCH 33.2 H (27.0-32.0) pg MCHC 31.8 L (32.0-37.0) g/dL Plt Count 31 L (140-440) 10*3/uL MPV 12.5 H (9.5-12.2) fL Immature Gran # 0.06 H (0.00-0.04) 10*3/uL Lymphocytes # 0.71 L (0.90-5.00) 10*3/uL Eosinophils # 0.01 L (0.04-0.35) 10*3/uL Sodium 134 L (137-145) mmol/L Glucose 116 H (74-99) mg/dL POC Glucose (mg/dL) 233 H (70-110) mg/dL Calcium 7.7 L (8.4-10.2) mg/dL AST 43 H (14-36) U/L Alkaline Phosphatase 425 H (38-126) U/L Total Protein 4.3 L (6.3-8.2) g/dL Albumin 2.0 L (3.5-5.0) g/dL
[2024-12-06 16:10] LABS: Glucose,Whole Blood 184 mg/dL (70-110)
[2024-12-06 20:37] LABS: Glucose,Whole Blood 165 mg/dL (70-110)
[2024-12-07] MEDS: IPRATROPIUM-ALBUTEROL 3 ML NEB INHALATION PRN (01:05)
[2024-12-07 04:28] VITALS: RESP 16
[2024-12-07 06:45] LABS: Glucose,Whole Blood 111 mg/dL (70-110)
[2024-12-07 08:33] LABS: HCT 26.8 % (37.2-46.3); HGB 8.4 g/dL (12.0-15.0); MCH 33.2 pg (27.0-32.0); MCHC 31.3 g/dL (32.0-37.0); MCV 105.9 fL (80.0-97.0); Mean Platelet Volume 11.9 fL (9.5-12.2); RBC 2.53 10*6/uL (4.10-5.20); RDW 22.2 % (11.5-14.5)
[2024-12-07 08:41] LABS: African American GFR (CKD) >90 (>60 ml/min/1.73 sqM); Anion Gap 4 mmol/L; Blood Urea Nitrogen 14 mg/dL (7-17); Calcium 7.9 mg/dL (8.4-10.2); Carbon Dioxide 26 mmol/L (22-30); Chloride 105 mmol/L (98-107); Glucose 135 mg/dL (74-99); Non-African American GFR(CKD) >90 (>60 ml/min/1.73 sqM); Potassium 3.8 mmol/L (3.5-5.1); Sodium 135 mmol/L (137-145)
[2024-12-07 08:46] LABS: Platelet Count 64 10*3/uL (140-440)
[2024-12-07 10:24] LABS: WBC 3.52 10*3/uL (4.50-10.00)
[2024-12-07 11:10] LABS: Glucose,Whole Blood 168 mg/dL (70-110)
--- NOTE | 2024-12-07 11:10 | P.CRDCN ---
History of Present Illness History of present illness: HISTORY OF PRESENT ILLNESS: This is a 74-year-old female with a past medical history significant for metastatic pancreatic cancer, diabetes, and neuropathy. Patient does not follow with a system programmer. We have been asked to see the patient in consultation for abnormal echo. Patient examined at the bedside. Patient was brought to the hospital for increasing generalized weakness. The patient does have a history of metastatic pancreatic cancer and is undergoing chemotherapy. The patient currently denies any chest pain or pressure. She denies any shortness of breath. Vital signs are stable. Telemetry reveals sinus mechanism. EKG reveals sinus mechanism with no signs of acute ischemia. Patient underwent CT of the brain revealing infarct of the right frontal lobe. Echocardiogram completed revealing ejection fraction 55 to 60%, positive agitated saline bubble study for [id number] shunt, moderate MR, mild TR. Patient denies any known cardiac history. She denies any known history of CAD. REVIEW OF SYSTEMS: At the time of my exam: CONSTITUTIONAL: Denies fever or chills. HEENT: Denies blurred vision, vision changes, or eye pain. Denies hemoptysis CARDIOVASCULAR: Denies chest pain. Denies orthopnea. Denies PND. Denies palpitations RESPIRATORY: Denies shortness of breath. GASTROINTESTINAL: Denies abdominal pain. Denies nausea or vomiting. HEMATOLOGIC: Denies bleeding disorders. GENITOURINARY: Denies any blood in urine. SKIN: Denies pruitis. Denies rash. PHYSICAL EXAM: VITAL SIGNS: Reviewed. GENERAL: Well-developed in no acute distress. HEENT: Head is normocephalic. Pupils are equal, round. Sclerae anicteric. Mucous membranes of the mouth are moist. Neck supple. No JVD or thyromegaly LUNGS: Respirations even and unlabored. Lungs essentially clear to auscultation bilaterally. HEART: Regular rate and rhythm. S1 and S2 heard. Systolic murmur noted. ABDOMEN: Soft. Nondistended. Nontender. EXTREMITIES: Normal range of motion. No clubbing or cyanosis. Peripheral pulses intact. Bilateral lower extremity edema noted NEUROLOGIC: Awake and alert. Oriented x 3. ASSESSMENT: Generalized weakness Acute CVA of right frontal lobe PFO, echo reveals positive [id number] shunt Moderate mitral regurgitation Metastatic pancreatic cancer Diabetes Peripheral edema Pancytopenia PLAN: 2D echo obtained and reviewed Patient is not a candidate for PFO closure secondary to metastatic pancreatic cancer This was discussed at the bedside with the patient and her son who verbalized understanding Continue further management per neurology and internal medicine We will sign off. Please reconsult if needed. Nurse practitioner note has been reviewed by physician. Signing provider agrees with the documented findings, assessment, and plan of care documented by FILLING WINDER as a scribe. Past Medical History Past Medical History: Cancer, Diabetes Mellitus Additional Past Medical History / Comment(s): PANCREATIC. History of Any Multi-Drug Resistant Organisms: None Reported Past Surgical History: No Surgical Hx Reported Additional Past Surgical History / Comment(s): bile duct stent. Past Anesthesia/Blood Transfusion Reactions: No Reported Reaction Past Psychological History: No Psychological Hx Reported Smoking Status: Former smoker Medications and Allergies Home Medications Medication Instructions Recorded Confirmed Type Gabapentin [Neurontin] 600 mg PO TID 05/15/23 12/02/24 History Ondansetron [Zofran] 4 mg PO Q8HR PRN 09/23/23 12/02/24 History glipiZIDE 5 mg PO AC-BID PRN 09/23/23 12/02/24 History HYDROcodone/APAP 5-325MG [Dameron 2 tab PO TID 10/23/24 12/02/24 History 5-325] Furosemide [Lasix] 20 mg PO DAILY PRN 11/13/24 12/02/24 History Potassium Chloride 10 meq PO BID PRN 11/13/24 12/02/24 History Allergies Allergy/AdvReac Type Severity Reaction Status Date / Time No Known Allergies Allergy Verified 12/02/24 07:13 Physical Exam Vitals: Vital Signs Temp Pulse Pulse Resp BP Pulse Ox 12/07/24 04:00 79 16 93/58 96 12/07/24 01:11 75 18 12/07/24 01:05 76 18 12/06/24 23:40 80 17 110/75 96 12/06/24 19:40 97.9 F 78 16 99/66 99 12/06/24 15:25 78 17 94/64 12/06/24 11:23 85 15 109/74 100 Intake and Output 12/06/24 12/07/24 12/07/24 22:59 06:59 14:59 Intake Total 20 20 180 Output Total 900 Balance -880 20 180 Intake: IV 20 20 Invasive Line 1 10 10 Invasive Line 2 10 10 Oral 180 Output: Urine 900 Other: Voiding Method Diaper Diaper External Catheter External Catheter # Voids 1 # Bowel Movements 1 1 Weight 69 kg Results 12/07/24 08:14 12/07/24 08:14 CBC 12/07/24 Range/Units 08:14 WBC 3.52 L (4.50-10.00) 10*3/uL RBC 2.53 L (4.10-5.20) 10*6/uL Hgb 8.4 L (12.0-15.0) g/dL Hct 26.8 L (37.2-46.3) % Plt Count 64 L D (140-440) 10*3/uL Comprehensive Metabolic Panel 12/07/24 Range/Units 08:14 Sodium 135 L (137-145) mmol/L Potassium 3.8 (3.5-5.1) mmol/L Chloride 105 (98-107) mmol/L Carbon Dioxide 26 (22-30) mmol/L BUN 14 (7-17) mg/dL Creatinine 0.57 (0.52-1.04) mg/dL Glucose 135 H (74-99) mg/dL Calcium 7.9 L (8.4-10.2) mg/dL Current Medications Generic Name Dose Route Start Last Admin Trade Name Freq PRN Reason Stop Dose Admin Acetaminophen 650 mg 12/01/24 20:33 12/02/24 23:00 Acetaminophen Tab 325 Mg Tab PO 650 mg Q6HR PRN Administration Mild Pain or Fever > 100.5 Hydrocodone Bitart/Acetaminophen 1 each 12/01/24 20:33 Hydrocodone/Apap 5-325mg 1 Each Tab PO Q4HR PRN Moderate Pain (Scale 4 to 6) Hydrocodone Bitart/Acetaminophen 2 each 12/02/24 09:21 Hydrocodone/Apap 5-325mg 1 Each Tab PO TID PRN Severe Pain (Scale 7 to 10) Albuterol/Ipratropium 3 ml 12/07/24 00:40 12/07/24 01:05 Ipratropium-Albuterol 3 Ml Neb INHALATION 3 ml RT-QID PRN Administration Shortness Of Breath Or Wheezing Gabapentin 600 mg 12/02/24 09:30 12/07/24 08:39 Gabapentin 300 Mg Cap PO 600 mg TID KODAK Administration Glipizide 5 mg 12/02/24 12:07 Glipizide 5 Mg Tab PO AC-BID PRN Blood Sugar - High Sodium Chloride 1,000 mls @ 70 mls/hr 12/03/24 16:45 12/07/24 04:31 Saline 0.9% IV Not Given .[id number] [facility] Insulin Human Lispro 0 unit 12/02/24 12:30 12/07/24 06:47 Insulin Lispro (Humalog) 100 Unit/Ml 10 Ml Vl SQ Not Given ACHS [facility] Protocol Morphine Sulfate 4 mg 12/01/24 20:33 12/02/24 10:24 Morphine Sulfate 4 Mg/Ml Syringe IV 4 mg Q4HR PRN Administration Severe Pain (Scale 7 to 10) Naloxone HCl 0.2 mg 12/01/24 20:33 Naloxone 0.4 Mg/Ml 1 Ml Vial IV Q2M PRN Opioid Reversal Ondansetron HCl 4 mg 12/01/24 20:33 Ondansetron 4 Mg/2 Ml Vial IVP Q8HR PRN Nausea And Vomiting Ondansetron HCl 4 mg 12/02/24 09:21 Ondansetron Odt 4 Mg Tab PO Q8HR PRN Nausea Pantoprazole Sodium 40 mg 12/02/24 09:00 12/07/24 08:39 Pantoprazole 40 Mg/10 Ml Vial IV 40 mg DAILY [facility] Administration Intake and Output 12/06/24 12/07/24 12/07/24 22:59 06:59 14:59 Intake Total 20 20 180 Output Total 900 Balance -880 20 180 Intake: IV 20 20 Invasive Line 1 10 10 Invasive Line 2 10 10 Oral 180 Output: Urine 900 Other: Voiding Method Diaper Diaper External Catheter External Catheter # Voids 1 # Bowel Movements 1 1 Weight 69 kg 12/07/24 08:14 12/07/24 08:14
--- NOTE | 2024-12-07 12:52 | P.PN ---
Subjective Progress Note Date: 12/07/24 74-year-old pleasant female came in complaints of generalized weakness and mental fogginess patient received chemotherapy on 18 of this month. Patient does have bilateral lower extremity swelling does take Lasix at home patient is mildly hyponatremic. Patient was also found to have low hemoglobin of around 6.5 received 180 of pRBC transfusion patient feels slightly better but still quite weak patient has an elevated MCV. Patient does have history of pancreatic cancer on chemotherapy as mentioned above patient had a liver ultrasound which showed a possible metastatic lesion in the liver and some gallbladder wall thickening although patient denied any significant abdominal pain. Chest x-ray showed mild bilateral pleural effusions patient denied any history of congestive heart failure. Venous Doppler left lower extremity did not show any DVT. 12/03/2024 Patient seen and examined at bedside. Patient son at bedside who states he feels his mother has had some ongoing slurred speech and overall lethargy and confusion that he was concerned with. He was unsure but feels it may have began Saturday. Upon speaking with speech language pathology it was noted that she had some left-sided facial drooping. CT brain was ordered and found to have right- sided frontal lobe ischemic stroke. Code stroke was activated. Neurology was consulted. Aspirin and statin given. Ordered echocardiogram with bubble study, CTA head and neck. Patient subsequently transferred to [facility]. Labs today reveal WBC 1.91, hemoglobin 7.6, platelets 50, glucose 117, AST 62, ALP 510. TSH is WNL. 12/04/2024 Patient seen and examined at bedside. Discussed with patient and son risks and benefits of CODE STATUS. They showed understanding and consider options. Patient remains lethargic. Heme-onc following patient. WBC 2.0, hemoglobin 7.4, MCV 102.7, platelets 38, sodium 134, potassium 3.9, 125, bilirubin 1.5, AST 50, ALP 474, lipid panel is WNL. 12/05/2024 Patient seen and examined at bedside. No acute events overnight. Patient and family wish to proceed with NO CODE status. Discussed at length options for next steps, patient previously declined postacute rehab. Patient and family will discuss and weigh options. Patient denies any pain, continues to be lethargic. Heme-onc following patient. Today WBC 2.1, hemoglobin 7.4, platelets 32, sodium 133, glucose 117, total bilirubin 1.4, ALP 467. 4/27. Patient seen and examined. Son at the bedside, patient has swelling of lower extremities which family thinks is improved from before, will give 1 dose of Lasix. Family wants patient to go to rehab. 12/07. Patient seen and examined. No acute events overnight. Son at bedside. Patient and family will meet with hospice this afternoon for information. Cardiology consulted for intra-arterial shunt. Oncology following. Labs today hemoglobin 8.4, MCV 105, platelets 64, sodium 135, glucose 168. REVIEW OF SYSTEMS: All other systems are negative except those mentioned in the HPI PHYSICAL EXAMINATION: Vitals reviewed GENERAL: Lethargic, alert and oriented x3, not in any acute distress. Appears to be a malnourished thin built. CARDIOVASCULAR: S1 and S2 present. No murmurs, rubs, or gallops. PULMONARY: Chest is clear to auscultation, no wheezing or crackles. ABDOMEN: Soft, nontender, nondistended, normoactive bowel sounds. No palpable organomegaly. MUSCULOSKELETAL: No joint swelling or deformity. EXTREMITIES: No cyanosis, clubbing, 1+ pitting edema of lower extremities NEUROLOGICAL: Left-sided facial droop, otherwise unremarkable cranial nerve exam. SKIN: No rashes. Assessment and plan Acute ischemic stroke involving right frontal lobe without hemorrhage. Code stroke initiated. Neurology consulted. CT brain reviewed. Echocardiogram with bubble study with evidence of shunting across interatrial septum. CTA head and neck with no significant occlusive disease within head or neck, no sizable aneurysm sac or vascular malformation. Aspirin and atorvastatin not given due to low platelets and history of metastasis to liver. Neurology evaluated, recommended avoiding antiplatelets because of significant thrombocytopenia. MRI of the brain is ordered but unable to obtain because patient has a port that is not MRI compatible.. PT OT and speech are consulted. -Generalized weakness tiredness secondary to pancreatic cancer and anemia, patient may need [facility] if she forgoes hospice/palliative care Thrombocytopeniahematology on consult - Peripheral edema secondary to malnutrition, will use Lasix on as-needed basis and compression socks since patient has mild bilateral pleural effusions - Possible hypervolemic hyponatremia. - Moderate protein calorie malnutrition secondary to cancer will encourage high- protein diet and probably Ensure - Pancreatic cancer with metastasis oncology was following patient. Hospice consulted. - Type 2 diabetes mellitus patient will be started on sliding scale insulin hold off on glipizide - Diabetic peripheral neuropathy patient will be resumed on gabapentin Dr. Casillas seen patient with resident, present during exam, and agreed with findings. DVT prophylaxis: SCDs Attestation I have seen and examined this patient with my resident , discussed the same with the resident/NATALIYA, and agree with the dictator's assessment and plan as written Dr. Mingo casillas Objective - Vital Signs Vital signs: Vital Signs Temp 97.9 F 12/06/24 19:40 Pulse 79 12/07/24 04:00 Resp 16 12/07/24 04:00 BP 93/58 12/07/24 04:00 Pulse Ox 96 12/07/24 04:00 FiO2 Intake & Output 12/06/24 12/07/24 12/07/24 18:59 06:59 18:59 Intake Total 0 40 Output Total 1000 400 Balance -1000 -360 Weight 69 kg Intake: IV 40 Invasive Line 1 20 Invasive Line 2 20 Oral 0 Output: Urine 1000 400 Straight 200 Other: Voiding Method External Catheter Diaper External Catheter # Voids 1 1 # Bowel Movements 1 1 - Labs CBC & Chem 7: 12/08/24 06:25 12/08/24 06:25 Labs: Abnormal Lab Results - Last 24 Hours (Table) 12/06/24 12/06/24 12/06/24 Range/Units 11:22 16:09 20:27 POC Glucose (mg/dL) 233 H 184 H 165 H (70-110) mg/dL 12/07/24 Range/Units 06:43 POC Glucose (mg/dL) 111 H (70-110) mg/dL
[2024-12-07 13:46] VITALS: BMI 26.9
[2024-12-07] MEDS: HYDROcodone/APAP 5-325MG 1 EACH TAB PO PRN (14:50)
--- NOTE | 2024-12-07 15:52 | P.PN ---
Subjective Progress Note Date: 12/07/24 No acute events overnight. Pt denies pain, n/v/d. Reports feeling very weak and fatigued. Had long discussion with patient and son today regarding goals of care. Objective - Vital Signs Vital signs: Vital Signs Temp 98.2 F 12/07/24 08:00 Pulse 78 12/07/24 08:00 Resp 16 12/07/24 08:00 BP 111/74 12/07/24 08:00 Pulse Ox 92 L 12/07/24 08:00 FiO2 Intake & Output 12/06/24 12/07/24 12/07/24 18:59 06:59 18:59 Intake Total 0 40 180 Output Total 1000 400 Balance -1000 -360 180 Weight 69 kg Intake: IV 40 Invasive Line 1 20 Invasive Line 2 20 Oral 0 180 Output: Urine 1000 400 Straight 200 Other: Voiding Method External Catheter Diaper Diaper External Catheter External Catheter # Voids 1 1 # Bowel Movements 1 1 1 - Constitutional General appearance: Present: average body habitus, no acute distress - EENT Eyes: Present: anicteric sclerae, EOMI ENT: Present: hearing grossly normal - Respiratory Details: breathing is even and unlabored - Cardiovascular Details: skin warm and dry - Gastrointestinal General gastrointestinal: Present: soft. Absent: tenderness - Integumentary Integumentary: Absent: cyanotic, jaundiced - Musculoskeletal Musculoskeletal: Present: generalized weakness - Psychiatric Psychiatric: Present: A&O x's 3 - Labs CBC & Chem 7: 12/07/24 08:14 12/07/24 08:14 Labs: Abnormal Lab Results - Last 24 Hours (Table) 12/06/24 12/06/24 12/07/24 Range/Units 16:09 20:27 06:43 WBC (4.50-10.00) 10*3/uL RBC (4.10-5.20) 10*6/uL Hgb (12.0-15.0) g/dL Hct (37.2-46.3) % MCV (80.0-97.0) fL MCH (27.0-32.0) pg MCHC (32.0-37.0) g/dL Plt Count (140-440) 10*3/uL Sodium (137-145) mmol/L Glucose (74-99) mg/dL POC Glucose (mg/dL) 184 H 165 H 111 H (70-110) mg/dL Calcium (8.4-10.2) mg/dL 12/07/24 12/07/24 12/07/24 Range/Units 08:14 08:14 11:09 WBC 3.52 L (4.50-10.00) 10*3/uL RBC 2.53 L (4.10-5.20) 10*6/uL Hgb 8.4 L (12.0-15.0) g/dL Hct 26.8 L (37.2-46.3) % MCV 105.9 H (80.0-97.0) fL MCH 33.2 H (27.0-32.0) pg MCHC 31.3 L (32.0-37.0) g/dL Plt Count 64 L D (140-440) 10*3/uL Sodium 135 L (137-145) mmol/L Glucose 135 H (74-99) mg/dL POC Glucose (mg/dL) 168 H (70-110) mg/dL Calcium 7.9 L (8.4-10.2) mg/dL Assessment and Plan (1) Anemia Current Visit: No Status: Acute Code(s): D64.9 - ANEMIA, UNSPECIFIED SNOMED Code(s): 714887949 (2) Leg swelling Current Visit: No Status: Acute Code(s): M79.89 - OTHER SPECIFIED SOFT TISSUE DISORDERS SNOMED Code(s): 269282904 (3) Weakness Current Visit: No Status: Acute Code(s): R53.1 - WEAKNESS SNOMED Code(s): 56694463 (4) History of pancreatic cancer Current Visit: No Status: Acute Priority: High Code(s): Z85.07 - PERSONAL HISTORY OF MALIGNANT NEOPLASM OF PANCREAS SNOMED Code(s): 76322294723837 Plan: Acute ischemic stroke: Presented with progressing generalized weakness and fatigue and decreased oral intake. Also reporting BLE edema and low back pain with BLE pain -Symptoms have been progressive over the last 1 month -BLE dopplers negative for DVT -Brain CT noted ischemic stroke in the right frontal lobe -Echo with bubble study revealed evidence of PFO -Cardiology and neurology following -Recommend continued management of stroke per primary and other consulting teams Chemo induced anemia and thrombocytopenia: -Blood counts stable, slowly improving -1 unit packed red blood cells given on admission -She has progressive thrombocytopenia secondary to gemcitabine chemotherapy -Continue to monitor CBC, with supportive transfusions as needed Metastatic pancreatic cancer: -Oncology history as dictated in the HPI -Started Gemzar and Abraxane on 10/23/24. She completed cycle 1, day 15 on 11/13/24 with G-CSF -She last received cycle 2, day 1 on 11/27/2024 -We did have a prolonged discussion with regards to additional treatment -Her son did note concern with regards to her ability to receive additional treatment in the future given the stroke -For now, we agreed with continuing current medical management At todays visit, had a detailed discussion regarding goals of care. Patient has verbalized that she no longer wants to receive active treatment. Her treatment options and palliative care vs hospice were further discussed. At this time patient and family would like to focus on comfort care measures and want to take patient home and are not interested in SNF. Will place palliative/hospice informational meeting.
[2024-12-07 16:10] LABS: Glucose,Whole Blood 169 mg/dL (70-110)
[2024-12-07 20:15] LABS: Glucose,Whole Blood 180 mg/dL (70-110)
[2024-12-08 06:12] LABS: Glucose,Whole Blood 127 mg/dL (70-110)
[2024-12-08 07:11] LABS: HCT 25.4 % (37.2-46.3); HGB 8.1 g/dL (12.0-15.0); Immature Platelet Fraction 7.6 % (1.1-6.1); MCH 34.2 pg (27.0-32.0); MCHC 31.9 g/dL (32.0-37.0); MCV 107.2 fL (80.0-97.0); Mean Platelet Volume 11.8 fL (9.5-12.2); RBC 2.37 10*6/uL (4.10-5.20); RDW 22.3 % (11.5-14.5); WBC 3.14 10*3/uL (4.50-10.00)
[2024-12-08 07:20] LABS: Platelet Count 72 10*3/uL (140-440)
[2024-12-08 08:03] LABS: African American GFR (CKD) >90 (>60 ml/min/1.73 sqM); Anion Gap 3 mmol/L; Blood Urea Nitrogen 16 mg/dL (7-17); Calcium 7.9 mg/dL (8.4-10.2); Carbon Dioxide 23 mmol/L (22-30); Chloride 110 mmol/L (98-107); Glucose 118 mg/dL (74-99); Non-African American GFR(CKD) >90 (>60 ml/min/1.73 sqM); Potassium 3.8 mmol/L (3.5-5.1); Sodium 136 mmol/L (137-145)
--- NOTE | 2024-12-08 10:34 | P.DS ---
Providers Date of admission: 12/01/24 21:02 Expected date of discharge: 12/08/24 Attending physician: Bautista Dejesus Consults: 12/01/24 20:33 Consult Physician Urgent Consulting Provider: Mingo Baker Consult Reason/Comments: Known Do you want consulting provider notified?: Yes 12/03/24 15:19 Consult Physician Stat Consulting Provider: Lalit Jacobsen Consult Reason/Comments: code stroke Do you want consulting provider notified?: Yes Primary care physician: Ulysses Monroy Hospital Course: Discharge diagnoses; Acute ischemic stroke involving right frontal lobe without hemorrhage - Moderate protein calorie malnutrition secondary to cancer - Pancreatic cancer with metastasis Thrombocytopenia - Peripheral edema secondary to malnutrition - Hypervolemic hyponatremia - Type 2 diabetes mellitus - Diabetic peripheral neuropathy Hospital course; 74-year-old pleasant female came in complaints of generalized weakness and mental fogginess patient received chemotherapy on 18th of this month. Patient does have bilateral lower extremity swelling does take Lasix at home patient is mildly hyponatremic. Patient was also found to have low hemoglobin of around 6.5 received 180 of pRBC transfusion patient feels slightly better but still quite weak patient has an elevated MCV. Patient does have history of pancreatic cancer on chemotherapy as mentioned above patient had a liver ultrasound which showed a possible metastatic lesion in the liver and some gallbladder wall thickening although patient denied any significant abdominal pain. Chest x-ray showed mild bilateral pleural effusions patient denied any history of congestive heart failure. Venous Doppler left lower extremity did not show any DVT. During hospital stay patient treated for generalized weakness secondary to pancreatic cancer and anemia and for acute ischemic stroke involving the right frontal lobe without hemorrhage. Patient was seen by oncology team and neurology. Patient was assessed by PT and OT. Also during stay due to multiple comorbidities, patient and family decided to proceed with hospice. Patient discharge to home with hospice. She may continue her home medications for symptomatic relief and comfort. PHYSICAL EXAMINATION: Vitals reviewed GENERAL: Lethargic, alert and oriented x3, not in any acute distress. Appears to be a malnourished thin built. CARDIOVASCULAR: S1 and S2 present. No murmurs, rubs, or gallops. PULMONARY: Chest is clear to auscultation, no wheezing or crackles. ABDOMEN: Soft, nontender, nondistended, normoactive bowel sounds. No palpable organomegaly. MUSCULOSKELETAL: No joint swelling or deformity. EXTREMITIES: No cyanosis, clubbing, 1+ pitting edema of lower extremities NEUROLOGICAL: Left-sided facial droop, otherwise unremarkable cranial nerve exam. SKIN: No rashes. Dr. Casillas seen patient with resident, present during exam, and agreed with findings. Dictation was produced using Connect dictation software. please excuse any grammatical, word or spelling errors. Patient Condition at Discharge: Poor Plan - Discharge Summary New Discharge Prescriptions: Continue Ondansetron [Zofran] 4 mg PO Q8HR PRN PRN Reason: Nausea glipiZIDE 5 mg PO AC-BID PRN PRN Reason: Blood Sugar - High HYDROcodone/APAP 5-325MG [[place] 5-325] 2 tab PO TID Gabapentin [Neurontin] 600 mg PO TID Furosemide [Lasix] 20 mg PO DAILY PRN PRN Reason: Edema Discontinued Potassium Chloride 10 meq PO BID PRN PRN Reason: takes w/ lasix when needed Discharge Medication List Gabapentin [Neurontin] 600 mg PO TID 05/15/23 [History] Ondansetron [Zofran] 4 mg PO Q8HR PRN 09/23/23 [History] glipiZIDE 5 mg PO AC-BID PRN 09/23/23 [History] HYDROcodone/APAP 5-325MG [[place] 5-325] 2 tab PO TID 10/23/24 [History] Furosemide [Lasix] 20 mg PO DAILY PRN 11/13/24 [History] Follow up Appointment(s)/Referral(s): Ulysses Monroy [Primary Care Provider] - 1-2 days Discharge Disposition: HOME WITH HOSPICE
[2024-12-08 10:46] VITALS: TEMP 97.7
[2024-12-08 11:36] LABS: Glucose,Whole Blood 176 mg/dL (70-110)
[2024-12-08 15:38] VITALS: BP 111/70; PULSE 83
--- NOTE | 2024-12-08 17:23 | P.PN ---
Subjective Progress Note Date: 12/08/24 Patient was initially seen by Dr. Lalit Jacobsen. Please refer to his note for details. Patient's son was present by the bedside. He mentions that patient used to be on Eliquis since she was diagnosed with PE about 1-1/2 years ago. She was doing well, but developed severe thrombocytopenia related to chem otherapy. Therefore Eliquis was discontinued about a month ago. Patient presented with swelling, ascites and side effects of chemotherapy. While in the hospital, patient had stroke code activated when she had difficulty with talking, could not move. Patient was found to have right frontal infarct. Patient cannot have MRI because of presence of PowerPort in the common bile duct stent. Patient is doing much better. Patient denies any numbness or tingling, has generalized weakness. Denies any headache. Some of the workup during this hospital visit consisted of:. The platelets yesterday was 50,000 and currently is 38,000.-->32K. Bilateral lower extremities: Negative for DVT CT of the head is reported as acute infarct involving the right frontal. Personally feel the hypodensity over the right frontal region seems acute to subacute. Next CT angiography of the head and neck is reported significant occlusive disease within the head or neck. There is no sizable aneurysm or vascular malformation. Echo is reported as normal left ventricular size and systolic function. Evidence of shunting across intra-atrial septum with contrast bubble. Moderate mitral regurgitation with mild tricuspid regurgitation. Repeat CT head: Involving infarct right frontal lobe. No evidence for hemorrhagic conversion at this time. To the hospital Objective - Vital Signs Vital signs: Vital Signs Temp 97.7 F 12/08/24 08:00 Pulse 76 12/08/24 08:00 Resp 16 12/08/24 08:00 BP 103/66 12/08/24 08:00 Pulse Ox 95 12/08/24 08:00 FiO2 Intake & Output 12/07/24 12/08/24 12/08/24 18:59 06:59 18:59 Intake Total 360 Balance 360 Weight 69 kg 73 kg Intake: Oral 360 Other: Voiding Method Diaper Diaper Diaper External Catheter External Catheter External Catheter # Voids 1 2 1 # Bowel Movements 1 1 - Exam On examination patient is an elderly female, appears obviously cachectic, protuberant stomach. Patient has left pronator drift. The strength is normal in upper extremities. In the lower limbs hip flexion is about 3+4- and ankle dorsiflexion about 9-1-weaalkacbaz. Patient has moderate peripheral edema. - Labs CBC & Chem 7: 12/08/24 06:12/08/24 06:25 Labs: Abnormal Lab Results - Last 24 Hours (Table) 12/07/24 12/07/24 12/08/24 Range/Units 16:08 20:09 06:08 WBC (4.50-10.00) 10*3/uL RBC (4.10-5.20) 10*6/uL Hgb (12.0-15.0) g/dL Hct (37.2-46.3) % MCV (80.0-97.0) fL MCH (27.0-32.0) pg MCHC (32.0-37.0) g/dL Plt Count (140-440) 10*3/uL Immature Plt Fraction (1.1-6.1) % Sodium (137-145) mmol/L Chloride (98-107) mmol/L Glucose (74-99) mg/dL POC Glucose (mg/dL) 169 H 180 H 127 H (70-110) mg/dL Calcium (8.4-10.2) mg/dL 12/08/24 12/08/24 12/08/24 Range/Units 06:25 06:25 11:34 WBC 3.14 L (4.50-10.00) 10*3/uL RBC 2.37 L (4.10-5.20) 10*6/uL Hgb 8.1 L (12.0-15.0) g/dL Hct 25.4 L (37.2-46.3) % MCV 107.2 H (80.0-97.0) fL MCH 34.2 H (27.0-32.0) pg MCHC 31.9 L (32.0-37.0) g/dL Plt Count 72 L (140-440) 10*3/uL Immature Plt Fraction 7.6 H (1.1-6.1) % Sodium 136 L (137-145) mmol/L Chloride 110 H (98-107) mmol/L Glucose 118 H (74-99) mg/dL POC Glucose (mg/dL) 176 H (70-110) mg/dL Calcium 7.9 L (8.4-10.2) mg/dL Assessment and Plan Assessment: This is a 74-year-old woman with history of pancreatic cancer with mets to the liver on chemotherapy, thrombocytopenia, history of pulmonary embolism on Eliquis but that is held because of the thrombocytopenia about a month ago who presents because of generalized weakness especially lower extremity weakness with edema. Yesterday code stroke since lethargic and it was felt she had left facial weakness possibly since this Saturday and showed acute right frontal stroke but per son left facial weakness is old. Acute to subacute right frontal stroke. No IV or thrombolytics since outside the window and the risk outweigh the benefit. Etiology of the stroke is due to her history of cancer, age and sex. Repeat CT head is stable. Has positive PFO with Negative for DVT in lowers. Significant thrombocytopenia--improving Positive PFO on the 2D echo History of pancreatic cancer with mets to the liver on chemotherapy Bilateral lower extremity edema with significant weakness. History of pulmonary embolism not on anticoagulation because of her thrombocytopenia for the past 1 month Plan: Patient's platelet count are improving. Today it is 72,000. Discussed with hematology oncology about resuming Eliquis versus at least starting aspirin 81 mg daily. They are clearing patient for resuming Eliquis. Awaiting final clearance from Dr. Baker. Patient will not be receiving any more chemotherapy, therefore hopefully her platelets will continue to improve. She has passed the rosmery. Patient is very high risk for DVTs because of her immobility and pancreatic cancer. MRI of the brain is ordered but unable to obtain because patient has a port that is not MRI compatible. Patient was started on Lipitor 40 mg daily. If there is any contraindication of the use of statin specially with history of metastasis to the liver then bao mmend avoiding that I will defer that to the primary team Regarding the PFO recommend cardiology consultation Continue neurochecks Cardiac monitoring Oncology is consulted PT OT and AGENTS' RECORDS CLERK are consulted For DVT prophylaxis use SCDs Addendum: 5:30 PM Hematology/oncology informed that patient is cleared to resume Eliquis. Patient already has been discharged home. I called patient's son cell phone [phone], and informed him about resuming Eliquis. They have medication available at home and will resume it from tonight.
--- NOTE | 2024-12-08 18:02 | P.PN ---
Subjective Progress Note Date: 12/08/24 No acute events overnight. Pt denies pain, n/v/d. Reports feeling very weak and fatigued. Patient and family have met with hospice and plan is for discharge home today with hospice. Objective - Vital Signs Vital signs: Vital Signs Temp 97.7 F 12/08/24 08:00 Pulse 76 12/08/24 08:00 Resp 16 12/08/24 08:00 BP 103/66 12/08/24 08:00 Pulse Ox 95 12/08/24 08:00 FiO2 Intake & Output 12/07/24 12/08/24 12/08/24 18:59 06:59 18:59 Intake Total 360 Balance 360 Weight 69 kg 73 kg Intake: Oral 360 Other: Voiding Method Diaper Diaper Diaper External Catheter External Catheter External Catheter # Voids 1 2 # Bowel Movements 1 1 - Labs CBC & Chem 7: 12/08/24 06:25 12/08/24 06:25 Labs: Abnormal Lab Results - Last 24 Hours (Table) 12/07/24 12/07/24 12/08/24 Range/Units 16:08 20:09 06:08 WBC (4.50-10.00) 10*3/uL RBC (4.10-5.20) 10*6/uL Hgb (12.0-15.0) g/dL Hct (37.2-46.3) % MCV (80.0-97.0) fL MCH (27.0-32.0) pg MCHC (32.0-37.0) g/dL Plt Count (140-440) 10*3/uL Immature Plt Fraction (1.1-6.1) % Sodium (137-145) mmol/L Chloride (98-107) mmol/L Glucose (74-99) mg/dL POC Glucose (mg/dL) 169 H 180 H 127 H (70-110) mg/dL Calcium (8.4-10.2) mg/dL 12/08/24 12/08/24 12/08/24 Range/Units 06:25 06:25 11:34 WBC 3.14 L (4.50-10.00) 10*3/uL RBC 2.37 L (4.10-5.20) 10*6/uL Hgb 8.1 L (12.0-15.0) g/dL Hct 25.4 L (37.2-46.3) % MCV 107.2 H (80.0-97.0) fL MCH 34.2 H (27.0-32.0) pg MCHC 31.9 L (32.0-37.0) g/dL Plt Count 72 L (140-440) 10*3/uL Immature Plt Fraction 7.6 H (1.1-6.1) % Sodium 136 L (137-145) mmol/L Chloride 110 H (98-107) mmol/L Glucose 118 H (74-99) mg/dL POC Glucose (mg/dL) 176 H (70-110) mg/dL Calcium 7.9 L (8.4-10.2) mg/dL Assessment and Plan (1) Anemia Current Visit: No Status: Acute Code(s): D64.9 - ANEMIA, UNSPECIFIED SNOMED Code(s): 794250382 (2) Leg swelling Current Visit: No Status: Acute Code(s): M79.89 - OTHER SPECIFIED SOFT TISSUE DISORDERS SNOMED Code(s): 801732792 (3) Weakness Current Visit: No Status: Acute Code(s): R53.1 - WEAKNESS SNOMED Code(s): 75128663 (4) History of pancreatic cancer Current Visit: No Status: Acute Priority: High Code(s): Z85.07 - PERSONAL HISTORY OF MALIGNANT NEOPLASM OF PANCREAS SNOMED Code(s): 61598584392913 Plan: Acute ischemic stroke: Presented with progressing generalized weakness and fatigue and decreased oral intake. Also reporting BLE edema and low back pain with BLE pain -Symptoms have been progressive over the last 1 month -BLE dopplers negative for DVT -Brain CT noted ischemic stroke in the right frontal lobe -Echo with bubble study revealed evidence of PFO -Cardiology and neurology following -Recommend continued management of stroke per primary and other consulting teams Spoke with neurology today, they are recommending pt be placed back on anticoagulation to prevent further strokes. Since plts have been steadily incre asing, and are 72,000 today, and she is 12 days post chemo, so pt should be coming out of [place] in the next 1-2 days, it would be ok to restart eliquis 5mg BID as previously prescribed, if felt necessary from a neurology perspective Chemo induced anemia and thrombocytopenia: -Blood counts stable, slowly improving -1 unit packed red blood cells given on admission -She has progressive thrombocytopenia secondary to gemcitabine chemotherapy -Continue to monitor CBC, with supportive transfusions as needed Metastatic pancreatic cancer: -Oncology history as dictated in the HPI -Started Gemzar and Abraxane on 10/23/24. She completed cycle 1, day 15 on 11/13/24 with G-CSF -She last received cycle 2, day 1 on 11/27/2024 -We did have a prolonged discussion with regards to additional treatment -Her son did note concern with regards to her ability to receive additional treatment in the future given the stroke -For now, we agreed with continuing current medical management We had a detailed discussion regarding goals of care with patient and son. Patient has verbalized that she no longer wants to receive active treatment. Her treatment options and palliative care vs hospice were further discussed. At this time patient and family would like to focus on comfort care measures and has met with hospice team. Plan is for discharge today to home with hospice If there are any further questions or concerns please do not hesitate to reach out to [facility] service
== END 2024-12-08 16:30 | disposition hospice, home (50) | DRG 811 ==
LOC: EC 15:57 → 5NMEDONC 21:02 → OBSVTOIN 21:02 → 5NMEDONC 12-02 06:32 → 3SCARD 12-03 15:44
PROVIDERS: ADMIT Internal Medicine; ATTEND Internal Medicine
PROC: 30233N1 Transfusion of Nonautologous Red Blood Cells into Peripheral Vein, Percutaneous Approach (ICD-10-PCS; principal; 2024-12-01)
DX: D64.81 Anemia due to antineoplastic chemotherapy (principal); I63.9 Cerebral infarction, unspecified; C25.9 Malignant neoplasm of pancreas, unspecified; C78.7 Secondary malignant neoplasm of liver and intrahepatic bile duct; R78.81 Bacteremia; E44.0 Moderate protein-calorie malnutrition; J90 Pleural effusion, not elsewhere classified; R18.8 Other ascites; E87.1 Hypo-osmolality and hyponatremia; R13.10 Dysphagia, unspecified; D61.818 Other pancytopenia; E11.42 Type 2 diabetes mellitus with diabetic polyneuropathy; I08.1 Rheumatic disorders of both mitral and tricuspid valves; Q21.12 Patent foramen ovale; D69.59 Other secondary thrombocytopenia; E87.70 Fluid overload, unspecified; R60.0 Localized edema; M79.89 Other specified soft tissue disorders; M54.10 Radiculopathy, site unspecified; Z85.07 Personal history of malignant neoplasm of pancreas; R29.810 Facial weakness; T45.1X5A Adverse effect of antineoplastic and immunosuppressive drugs, initial encounter; Z79.01 Long term (current) use of anticoagulants; Z79.84 Long term (current) use of oral hypoglycemic drugs; Z79.899 Other long term (current) drug therapy; Z86.711 Personal history of pulmonary embolism; Z87.891 Personal history of nicotine dependence; X58.XXXA Exposure to other specified factors, initial encounter; Z68.28 Body mass index [BMI] 28.0-28.9, adult
CPT/HCPCS: 36415; 36430; 70450; 70496; 70498; 71046; 76705; 80048; 80053; 80061; 81001; 83036; 83605; 83735; 83880; 84100; 84443; 84484; 85025; 85027; 85610; 85730; 86850; 86900; 86901; 86920; 93005; 93306; 93970; 94640; 96360; 96361; 99285